=== PATIENT | female | born 1935 | race Caucasian/White ===

== ENCOUNTER 2017-07-17 10:51 | Emergency (ER) | payer OTHER ==
[2017-07-17] MEDS ORDERED: LORazepam 2 MG/ML INJ IVP ONE (11:04)
[2017-07-17] MEDS ORDERED: NS 1,000 ML IV ONE (11:04)
[2017-07-17 11:07] VITALS: TEMP 97.9
--- NOTE | 2017-07-17 11:17 | EDPHY ---
H & P Stated Complaint: constipation Time Seen by Provider: 07/17/17 11:14 HPI/ROS: HPI: This is an 82-year-old female who presents with Chief Complaint: Constipation Location: Lower abdomen Quality: Constipation Duration: 5 days Signs and Symptoms: No nausea, no vomiting, no diarrhea, no hemorrhoids, no decreased appetite, no dysuria, no back pain, no blood in stool, + lower abdominal cramping Timing: Daily, worsening Severity: 05/24 Context: Patient reports that she has not had a bowel movement in 5 days despite taking stool softener, MiraLax, Dulcolax suppository. She continues to eat 3 meals a day and drink fluids throughout the day without difficulty. History appendectomy but no bowel obstruction in past. Patient reports that she is normally regular and involvement in and this is the 1st occurrence of constipation. Modifying Factors: see above relief Comment: ROS: Constitutional: No fever, no chills, no weight loss Eyes: No blurred vision Respiratory: No shortness of breath, no cough Cardiovascular: No chest pain Gastrointestinal: No nausea, no vomiting no diarrhea Genitourinary: No dysuria Extremities: No myalgias Neurologic: No weakness, no numbness Skin: No rashes Hematologic: No bruising, no bleeding MEDICAL/SURGICAL HISTORY: Hypertension, hyperlipidemia, coronary artery disease, vertigo Appendectomy, left total knee replacement Source: Patient - Personal History Current Tetanus/Diphtheria Vaccine: Yes Current Tetanus Diphtheria and Acellular Pertussis (TDAP): Yes - Medical/Surgical History Hx Asthma: Yes Hx Chronic Respiratory Disease: No Hx Diabetes: No Hx Cardiac Disease: Yes Hx Renal Disease: No Hx Cirrhosis: No Hx Alcoholism: No Hx HIV/AIDS: No Hx Splenectomy or Spleen Trauma: No Other PMH: [place] with stents 2009, L knee replacement, vertigo - Social History Smoking Status: Former smoker - Physical Exam Exam: CONSTITUTIONAL: Obese elderly female, awake and alert, mild distress HEENT: Atraumatic and normocephalic, PERRL, EOMI. Tympanic membranes clear. Oropharynx clear, no exudate and moist pink mucosa. Airway patent. No lymphadenopathy. No meningismus. Cardiovascular: Normal S1/S2, regular rate, regular rhythm, without murmur rub or gallop. PULMONARY/CHEST: Symmetrical and nontender. Clear to auscultation bilaterally Good air movement. No accessory muscle usage. ABDOMEN: Soft, nondistended, nontender, no rebound, no guarding, no peritoneal signs, no masses or organomegaly. No CVAT. Bowel sounds are hypoactive in the upper quadrants and hyperactive in the lower quadrants EXTREMITIES: 2/2 pulses, no deformities, no clubbing, no cyanosis or edema. NEUROLOGICAL: no focal neuro deficits. GCS 15. SKIN: Warm and dry, no erythema. no rash. Good capillary refill. Constitutional: Initial Vital Signs Temperature (C) 36.6 C 07/17/17 11:01 Heart Rate 64 07/17/17 11:01 Respiratory Rate 18 07/17/17 11:01 Blood Pressure 199/84 H 07/17/17 11:01 O2 Sat (%) 89 L 07/17/17 11:01 O2 Delivery Mode Nasal Cannula O2 (L/minute) 2 Allergies/Adverse Reactions: latex [Latex] Allergy (Intermediate, Verified 08/13/13 15:39) Other-Enter Comments Sulfa (Sulfonamide Antibiotics) Allergy (Mild, Verified 08/13/13 15:39) Other-Enter Comments WALNUTS Allergy (Severe, Uncoded 08/13/13 15:39) Anaphylaxis CT CONTRAST Allergy (Uncoded 08/13/13 15:39) Home Medications: Medication Instructions Recorded Budesonide [Rhinocort Aqua] 2 sprays EACHNARE DAILY PRN 08/13/13 Clopidogrel Bisulfate [Plavix (*)] 75 mg PO DAILY 08/13/13 ESCITALOPRAM OXALATE [LEXAPRO] 20 mg PO DAILY 08/13/13 Herbals/Supplements -Info Only 1 each PO DAILY 08/13/13 Metoprolol Tartrate [Lopressor] 50 mg PO BIDMEAL 08/13/13 Mometasone/Formoterol [Dulera 100 2 puffs IH BID 08/13/13 Mcg/5 Mcg Inhaler] Pantoprazole Sodium [Protonix 40mg 40 mg PO BID 08/13/13 (*)] Rosuvastatin Calcium [Crestor 20mg 20 mg PO DAILY 08/13/13 (*)] chlordiazePOXIDE [Librium 5 mg (*)] 5 mg PO HS 08/13/13 Fenofibric Acid (Choline) 135 mg PO DAILY 07/18/14 [TRILIPIX] Valsartan [Diovan (*)] 160 mg PO BID 07/18/14 amLODIPine BESYLATE [Norvasc 5 mg 5 mg PO DAILY 07/18/14 (*)] Aspirin [Aspirin 81mg (*)] 81 mg PO DAILY #30 tab 08/09/14 oxyCODONE IR [Oxycodone Ir (*)] 5 - 15 mg PO Q3 PRN #40 tab 08/09/14 Cephalexin [Keflex] 500 mg PO Q6H #28 cap 04/29/16 Meclizine HCl [Meclizine HCl 25 mg 25 mg PO BID #20 tab 04/29/16 (RX,OTC)] Bisacodyl [Dulcolax] 10 mg RC DAILY PRN #6 supp.rect 07/17/17 Polyethylene Glycol 3350 [Miralax 17 gm PO DAILY PRN #12 pkt 07/17/17 17 gm (*)] Medical Decision Making - Diagnostics Imaging Results: Imaging Impressions Abdomen X-Ray 07/17/17 11:04 Impression: Nonspecific bowel gas pattern with mild fluid-filled distention of upper abdominal small bowel loops, with air-fluid levels. ED Course/Re-evaluation: IV fluids, IV medication, enema, AXR ordered Afebrile and not septic in appearance Given 1 L normal saline, IV Ativan for muscle cramping and mild distress, enema Abdominal x-ray my read shows no free air, no obstruction, + moderate stool burden Patient given enema and then had bowel movement large amount of stool and complete relief of cramping Differential Diagnosis: Abdominal pain including but not limited to appendicitis, cholecystitis, gastritis and urinary tract infection. - Data Points Medications Given: Discontinued Medications Sodium Chloride (Ns) 1,000 mls @ 0 mls/hr IV EDNOW ONE; Wide Open PRN Reason: Protocol Stop: 07/17/17 11:05 Last Admin: 07/17/17 11:22 Dose: 1,000 mls Lorazepam (Ativan Injection) 1 mg IVP EDNOW ONE Stop: 07/17/17 11:05 Last Admin: 07/17/17 11:23 Dose: 1 mg Departure - Departure Disposition: Home, Routine, Self-Care Clinical Impression: Constipation by delayed colonic transit Condition: Good Instructions: Constipation (ED) Referrals: Patient,NotPresent [Unknown] - As per Instructions [facility],. [Clinic] - 2-3 days, if not improved Prescriptions: Bisacodyl [Dulcolax] 10 mg RC DAILY PRN #6 supp.rect PRN Reason: Constipation Polyethylene Glycol 3350 [Miralax 17 gm (*)] 17 gm PO DAILY PRN #12 pkt PRN Reason: Constipation
[2017-07-17 11:25] VITALS: RESP 16
[2017-07-17 13:28] VITALS: BP 174/71; PULSE 70; O2SAT 91
== END 2017-07-17 13:40 | disposition home or self-care (01) ==
LOC: EDUNIT# → EDBD
DX: K59.01 Slow transit constipation (principal); J45.909 Unspecified asthma, uncomplicated; I25.2 Old myocardial infarction; E86.9 Volume depletion, unspecified; Z79.82 Long term (current) use of aspirin; Z95.5 Presence of coronary angioplasty implant and graft; Z87.891 Personal history of nicotine dependence; Z91.040 Latex allergy status
CPT/HCPCS: 74022; 96361; 96374; 99284; J2060

== ENCOUNTER → 2017-08-04 | Outpatient (CLI) | payer OTHER | LOC: FIMAGING 12:13 | PROVIDERS: ATTEND Nurse Practitioner Family | DX: S29.9XXA Unspecified injury of thorax, initial encounter (principal); R06.89 Other abnormalities of breathing ==

== ENCOUNTER → 2017-08-10 | Outpatient (CLI) | payer OTHER | LOC: FIMAGING 13:21 | PROVIDERS: ATTEND Physical Medicine & Rehabilitation Pain Medicine | DX: M51.34 Other intervertebral disc degeneration, thoracic region (principal); M51.26 Other intervertebral disc displacement, lumbar region; M46.94 Unspecified inflammatory spondylopathy, thoracic region; M48.04 Spinal stenosis, thoracic region; M48.06 Spinal stenosis, lumbar region; M48.07 Spinal stenosis, lumbosacral region; R91.1 Solitary pulmonary nodule ==

== ENCOUNTER → 2017-08-17 | Outpatient (CLI) | payer OTHER | LOC: FIMAGING 10:06 | PROVIDERS: ATTEND Physical Medicine & Rehabilitation Pain Medicine | DX: R91.1 Solitary pulmonary nodule (principal); I25.10 Atherosclerotic heart disease of native coronary artery without angina pectoris; I35.9 Nonrheumatic aortic valve disorder, unspecified ==

== ENCOUNTER → 2017-09-28 | Outpatient (CLI) | payer OTHER | LOC: FIMAGING 08:13 | PROVIDERS: ATTEND Internal Medicine Pulmonary Disease | DX: R05 Cough (principal); R09.3 Abnormal sputum; K21.9 Gastro-esophageal reflux disease without esophagitis ==

== ENCOUNTER 2017-11-04 16:08 | Inpatient (IN) | payer OTHER ==
[2017-11-04] MEDS ORDERED: LABETALOL HCL 5 MG/ML 20 ML MDV IVP ONE ×2 (16:23→19:08)
--- NOTE | 2017-11-04 16:24 | CPEKG ---
Heart Rate: 68 RR Interval: 882 P-R Interval: 176 QRSD Interval: 84 QT Interval: 424 QTC Interval: 451 P [place]: 50 QRS [place]: 17 T Wave [place]: 40 EKG Severity - ABNORMAL ECG - EKG Impression: SINUS RHYTHM EKG Impression: LEFT VENTRICULAR HYPERTROPHY EKG Impression: BORDERLINE INFERIOR Q WAVES Electronically Signed By: Tommie Nunez 04-Nov-2017 19:55:39
[2017-11-04 16:27] LABS: PLATELET COUNT 343 10^3/uL (150-400)
--- NOTE | 2017-11-04 16:51 | EDPHY ---
H & P Stated Complaint: CP/SOB HPI/ROS: Chief Complaint: Chest pain, shortness of breath HPI: 82-year-old woman with a history of coronary artery disease and hypertension is presenting with worsening dyspnea and chest pain on exertion for the last 3-4 days. She has had decreasing ability to ambulate to the point that with several steps she gets short of breath and started developing substernal chest pain. She has seen her director of testing for this and is scheduled to see Cardiology tomorrow. Today the pain was significantly worse. It goes away at rest. She has not noticed any increasing swelling. Does have a dry nonproductive cough. No fevers or chills. Currently is pain free. At worst pain is about an 8/10. It goes away with rest. ROS: 10 point Review of Systems is negative except as noted in the HPI. PMH: Coronary artery disease status post stenting x3,Hypertension, osteoarthritis Social History: No smoking, no alcohol, no recreational drug use Family History: non-contributory Physical Exam: Gen: Awake, Alert, No Distress, obese HEENT: Nose: no rhinorrhea Eyes: PERRLA, EOMI Mouth: Moist mucosa Neck: Supple, no JVD Chest: nontender, lungs clear to auscultation Heart: S1, S2 normal, no murmur Abd: Soft, non-tender, no guarding Back: no CVA tenderness, no midline tenderness Ext: no edema, non-tender Skin: no rash Neuro: CN II-XII intact, Sensation grossly intact, Strength 5/5 in bilateral upper and lower extremities - Personal History Current Tetanus/Diphtheria Vaccine: Unsure - Medical/Surgical History Hx Asthma: Yes Hx Chronic Respiratory Disease: No Hx Diabetes: No Hx Cardiac Disease: Yes Hx Renal Disease: No Hx Cirrhosis: No Hx Alcoholism: No Hx HIV/AIDS: No Hx Splenectomy or Spleen Trauma: No Other PMH: [place] with stents 2009, L knee replacement, vertigo, depression, CAD, systolic murmur, asthma, anxiety, back pain, GERD, REMA, RLS, osteopenia, kyphosis. - Social History Smoking Status: Former smoker Constitutional: Initial Vital Signs Temperature (C) 36.3 C 11/04/17 16:33 Heart Rate 74 11/04/17 16:33 Respiratory Rate 18 11/04/17 16:33 Blood Pressure 222/119 H 11/04/17 16:33 O2 Sat (%) 91 L 11/04/17 16:33 O2 Delivery Mode Nasal Cannula O2 (L/minute) 2 Allergies/Adverse Reactions: latex [Latex] Allergy (Intermediate, Verified 11/04/17 16:38) Other-Enter Comments Sulfa (Sulfonamide Antibiotics) Allergy (Mild, Verified 11/04/17 16:38) Other-Enter Comments zolpidem [From Ambien] Allergy (Verified 11/04/17 16:38) WALNUTS Allergy (Severe, Uncoded 08/13/13 15:39) Anaphylaxis CT CONTRAST Allergy (Uncoded 08/13/13 15:39) Home Medications: Medication Instructions Recorded Budesonide [Rhinocort Aqua] 2 sprays EACHNARE DAILY PRN 08/13/13 Clopidogrel Bisulfate [Plavix (*)] 75 mg PO DAILY 08/13/13 ESCITALOPRAM OXALATE [LEXAPRO] 20 mg PO DAILY 08/13/13 Herbals/Supplements -Info Only 1 each PO DAILY 08/13/13 Metoprolol Tartrate [Lopressor] 50 mg PO BIDMEAL 08/13/13 Mometasone/Formoterol [Dulera 100 2 puffs IH BID 08/13/13 Mcg/5 Mcg Inhaler] Pantoprazole Sodium [Protonix 40mg 40 mg PO BID 08/13/13 (*)] Rosuvastatin Calcium [Crestor 20mg 20 mg PO DAILY 08/13/13 (*)] chlordiazePOXIDE [Librium 5 mg (*)] 5 mg PO HS 08/13/13 Fenofibric Acid (Choline) 135 mg PO DAILY 07/18/14 [TRILIPIX] Valsartan [Diovan (*)] 160 mg PO BID 07/18/14 amLODIPine BESYLATE [Norvasc 5 mg 5 mg PO DAILY 07/18/14 (*)] Aspirin [Aspirin 81mg (*)] 81 mg PO DAILY #30 tab 08/09/14 oxyCODONE IR [Oxycodone Ir (*)] 5 - 15 mg PO Q3 PRN #40 tab 08/09/14 Cephalexin [Keflex] 500 mg PO Q6H #28 cap 04/29/16 Meclizine HCl [Meclizine HCl 25 mg 25 mg PO BID #20 tab 04/29/16 (RX,OTC)] Bisacodyl [Dulcolax] 10 mg RC DAILY PRN #6 supp.rect 07/17/17 Polyethylene Glycol 3350 [Miralax 17 gm PO DAILY PRN #12 pkt 07/17/17 17 gm (*)] Medical Decision Making - Diagnostics EKG Interpretation: ECG time 4:21 p.m. sinus rhythm with a rate of 68, normal axis, normal intervals , borderline inferior Q-waves in lead 3. Imaging Results: Imaging Impressions Chest X-Ray 11/04/17 16:22 Impression: 1. Mild prominent interstitial markings at the lung bases could represent some dependent interstitial edema. Imaging: I viewed and interpreted images myself ED Course/Re-evaluation: Patient presenting with worsening dyspnea on exertion and hypertension urgency. Will give her labetalol 5 mg at this time. She is currently pain-free. She has had significant anginal symptoms which are progressing. No acute changes on her ECG but definitely old inferior Q-waves. Will obtain blood tests and x- ray. I anticipate admission for further evaluation. Case discussed with Valerie Spicer, hospitalist. She will admit to the PCU under Dr. Main. - Data Points Laboratory Results: Laboratory Results 11/04/17 16:00 11/04/17 16:00 11/04/17 11/04/17 16:00 16:00 WBC 8.06 10^3/uL 10^3/uL (3.80-9.50) RBC 4.40 10^6/uL 10^6/uL (4.18-5.33) Hgb 12.7 g/dL g/dL (12.6-16.3) Hct 37.5 % L % (38.0-47.0) MCV 85.2 fL fL (81.5-99.8) MCH 28.9 pg pg (27.9-34.1) MCHC 33.9 g/dL g/dL (32.4-36.7) RDW 14.7 % % (11.5-15.2) Plt Count 343 10^3/uL 10^3/uL (150-400) MPV 9.7 fL fL (8.7-11.7) Neut % (Auto) 59.4 % % (39.3-74.2) Lymph % (Auto) 26.1 % % (15.0-45.0) [place] % (Auto) 7.7 % % (4.5-13.0) Eos % (Auto) 5.6 % % (0.6-7.6) Baso % (Auto) 0.7 % % (0.3-1.7) Nucleat RBC Rel Count 0.0 % % (0.0-0.2) Absolute Neuts (auto) 4.79 10^3/uL 10^3/uL (1.70-6.50) Absolute Lymphs (auto) 2.10 10^3/uL 10^3/uL (1.00-3.00) Absolute Monos (auto) 0.62 10^3/uL 10^3/uL (0.30-0.80) Absolute Eos (auto) 0.45 10^3/uL H 10^3/uL (0.03-0.40) Absolute Basos (auto) 0.06 10^3/uL 10^3/uL (0.02-0.10) Absolute Nucleated RBC 0.00 10^3/uL 10^3/uL (0-0.01) Immature Gran % 0.5 % % (0.0-1.1) Immature Gran # 0.04 10^3/uL 10^3/uL (0.00-0.10) Sodium 143 mEq/L mEq/L (134-144) Potassium 4.5 mEq/L mEq/L (3.5-5.2) Chloride 105 mEq/L mEq/L (97-110) Carbon Dioxide 21 mEq/l L mEq/l (22-31) Anion Gap 17 mEq/L H mEq/L (8-16) BUN 22 mg/dL mg/dL (7-23) Creatinine 1.0 mg/dL mg/dL (0.6-1.0) Estimated GFR 53 Glucose 194 mg/dL H mg/dL (70-100) Calcium 10.8 mg/dL H mg/dL (8.5-10.4) Phosphorus 3.2 mg/dL mg/dL (2.5-4.5) Troponin I < 0.012 ng/mL ng/mL (0.000-0.034) Medications Given: Discontinued Medications Labetalol HCl (Trandate Injection) 5 mg IVP EDNOW ONE Stop: 11/04/17 16:24 Last Admin: 11/04/17 16:27 Dose: 5 mg Departure - Departure [facility] Clinical Impression: Chest pain, Hypertension, Unstable angina Condition: Fair Referrals: Patient,NotPresent [Unknown] - As per Instructions
[2017-11-04] MEDS ORDERED: ONDANSETRON 4 MG/2 ML VIAL IVP PRN (19:03)
[2017-11-04] MEDS ORDERED: ONDANSETRON DISINTEGRATING 4 MG TAB PO PRN (19:03)
[2017-11-04] MEDS ORDERED: CETIRIZINE 10 MG TAB PO PRN (19:05)
[2017-11-04] MEDS ORDERED: LIDOCAINE HCL 4% TP PRN (19:05)
[2017-11-04] MEDS ORDERED: NITROGLYCERIN 0.4 MG BTL SL PRN (19:05)
[2017-11-04] MEDS ORDERED: POLYETHYLENE GLYCOL 3350 17 GM PKT PO PRN (19:05)
[2017-11-04] MEDS ORDERED: SENNOSIDES/DOCUSATE SODIUM TAB PO PRN (19:05)
[2017-11-04] MEDS ORDERED: ALBUTEROL 60 PUFFS/8 GM MDI IH PRN (19:05)
[2017-11-04] MEDS ORDERED: BISACODYL 10 MG SUPP PR PRN (19:05)
[2017-11-04] MEDS ORDERED: FUROSEMIDE 40 MG/4 ML VIAL IVP ONE (19:07)
--- NOTE | 2017-11-04 20:06 | GHP ---
[f rep st] HISTORY AND PHYSICAL DATE OF ADMISSION: 11/04/2017 HISTORY OF PRESENT ILLNESS: The patient is a pleasant 82-year-old female with a history of coronary artery disease and hypertension, with previous admissions for hypertensive urgency, who presents with a couple days of increasing dyspnea on exertion and exertional chest pain. She has a history of cor onary artery disease with 3 stents placed in the remote past. She has had regular care with Dr. Mary soto since then, including a stress tests which apparently have been negative. She had moved to [facility] in the spring. She had her last cardiology followup then and was told everything was okay. Since moving to [facility] from [facility], she has gained about 40 pounds because she was not previously eating 3 meals a day. She takes her medications as prescribed. Her antihypertensive regimen includes amlodipine, losartan, and a beta jordi. She has noted increasing dyspnea on exert ion over the last 3 days. She had an appointment with Dr. Springer, her electrical estimator, today which soun ds like things went okay, although she was complaining of a dry cough. She has not had fever, chills , nausea, vomiting, diarrhea, or sputum. She does not really have much in the way of lower extremity edema. REVIEW OF SYSTEMS: A complete 10-point review of systems was conducted and negative except as noted in the HPI. PAST MEDICAL HISTORY: 1. Coronary artery disease. 2. Anomia. She has seen a neurologist in the past and did not get much of an answer. 3. Hypertension. 4. Asthma. 5. Cough to JIMENEZ inhibitor. 6. Hyperlipidemia. 7. Constipation. 8. GERD. ALLERGIES: Sulfa, latex, JIMENEZ inhibitors, walnuts. MEDICATIONS: Tylenol, albuterol, amlodipine, atorvastatin, bisacodyl, budesonide, nasal spray, cetir izine, chlordiazepoxide at night, clopidogrel, escitalopram, fenofibrate, lidocaine, losartan, metopr olol, nitroglycerin p.r.n. which she has not taken, pantoprazole, MiraLAX, senna, tramadol. SOCIAL HISTORY: No tobacco. No alcohol. Originally from [place]. Lives at [facility]. FAMILY HISTORY: Parents . PHYSICAL EXAMINATION: PRESENTING VITALS: Today, temp 36.3, blood pressure 222/119, pulse 74, breath ing 18 times a minute, 91% on room air. Her blood pressure remains elevated at 230/80. GENERAL: No acute distress. HEENT: Sclerae anicteric. Oropharynx clear. Mucous membranes are moist. NECK: Supple, without lymphadenopathy. I believe she has elevated JVD, but her habitus makes it a little b it difficult to figure that out. LUNGS: Clear to auscultation anterolaterally. HEART: S1, S2. Th ere is a 3/6 systolic ejection murmur, heard best at the left upper sternal border. The character of it is crescendo decrescendo. ABDOMEN: Soft, nontender, nondistended. LOWER EXTREMITIES: Without edema. Calves nontender. SKIN: Without rash. NEUROLOGIC: Exam nonfocal. LABORATORY DATA: White count 8, hematocrit 37.5, platelets 343,000. Sodium 143, potassium 4.5, chlo ride 105, bicarb 21, BUN 22, creatinine 1.0, glucose 194, calcium 10.8, which is slightly high. Trop onin is less than 0.012. Chest x-ray interpreted by me shows mild volume overload, without acute inf iltrate. EKG interpreted by me shows sinus at 68, with a normal axis and intervals. There are no ST or T-wave changes. There is an inferior Q. Compared with prior, this EKG is similar. The Q-wave i s larger, but it was present previously. I have discussed the case with Dr. Raghu Nguyen and Dr. Will Rangel of cardiology. ASSESSMENT AND PLAN: An 82-year-old female with hypertensive urgency. 1. Hypertensive urgency. It is unclear why her blood pressure is so much more elevated. She is on appropriate blood pressure medications. I think the weight gain in the last 6-8 months may have cont ributed to rising blood pressures. I am going to give her 10 of labetalol. She received 5 with mini mal effect. If that does not work, I will increase it. I am also going to give her some IV Lasix. 2. Acute diastolic heart failure. The patient has diastolic heart failure on the basis of her eleva diamond blood pressure and mild pulmonary edema. I will give her Lasix 40 tonight and 40 b.i.d. starting tomorrow. It has been a long time since she had an echocardiogram here in this hospital, going back for more than 4 years. She had one in February. [facility] is going to see her in the morning. ey can evaluate that. For now, we will diurese. 3. Coronary artery disease. I think the patient would probably benefit from a stress test, but once her blood pressure is under better control, so I will not order it now. 4. Asthma. Continue inhaler. She is not wheezing on this exam. 5. Prophylaxis. Pharmacologic prophylaxis is indicated. 6. Disposition. Inpatient status. I anticipate we will need more than 2 midnights. /[id number]/MODL
[2017-11-04] MEDS ORDERED: FLUTICASONE NASAL 120 SPRAYS/16 GM MDI EACHNARE PRN (21:00)
[2017-11-04] MEDS: LOSARTAN POTASSIUM 50 MG TAB PO SCH (21:33)
[2017-11-04] MEDS: PANTOPRAZOLE SODIUM 40 MG TAB PO SCH (21:33)
[2017-11-04] MEDS: amLODIPine BESYLATE 5 MG TAB PO SCH (21:33)
[2017-11-04] MEDS: ATORVASTATIN CALCIUM 40 MG TAB PO SCH (21:33)
[2017-11-04] MEDS: ACETAMINOPHEN 325 MG TAB PO PRN (23:34)
[2017-11-05] MEDS ORDERED: Fenofibrate,Micronized [Fenofibrate] 200 MG PO SCH (09:00)
[2017-11-05] MEDS: ESCITALOPRAM OXALATE 10 MG TAB PO SCH (09:21)
[2017-11-05] MEDS: PANTOPRAZOLE SODIUM 40 MG TAB PO SCH ×2 (09:21→18:22)
[2017-11-05] MEDS: CLOPIDOGREL BISULFATE 75 MG TAB PO SCH (09:21)
[2017-11-05] MEDS: METOPROLOL TARTRATE 50 MG TAB PO SCH ×2 (09:21→17:18)
[2017-11-05] MEDS: ENOXAPARIN 40 MG/0.4 ML SYR SC SCH (10:30)
[2017-11-05] MEDS: FUROSEMIDE 40 MG/4 ML VIAL IVP SCH ×2 (10:30→17:17)
--- NOTE | 2017-11-05 12:05 | PDMN ---
Medical Necessity Medical necessity: Pt meets IP criteria per MD; est los >2 mm for eval/tx of hypertensive urgency & acute diastolic heart failure; admit for further workup/ monitoring, IV diuresis/med management; hx CAD & HTN; per H&P & order 11/04/17
--- NOTE | 2017-11-05 14:34 | HOSPPROG ---
Hospitalist Progress Note Assessment/Plan: NEW PT ENCOUNTER 82 yo female admitted with HTN urgency, volume overload, and 40 Lb weigh gain #Volume overload and Diastolic CHF-Exacerbation: cont IV Lasix #COOL #HTN Urgency, improving #Hx of CAD #Weight gain Plan: -Continue IV Lasix -BP is better, continue with current mgmt -Gudelia scan tomorrow -Appreciate Cards help -Cont current BP mgmt -Lovenox for DVT proph Subjective: BP is better. Feels better. Still with some SOB. diuresis has been + . Objective: Vital Signs Temp Pulse Resp BP Pulse Ox 36.6 C 60 18 140/60 H 93 11/05/17 12:00 11/05/17 12:00 11/05/17 12:00 11/05/17 12:00 11/05/17 12:00 Laboratory Results 11/05/17 02:10 11/04/17 11/05/17 11/06/17 05:59 05:59 05:59 Intake Total 1100 Output Total 1350 Balance -250 - Physical Exam Constitutional: no apparent distress Eyes: PERRL, EOMI Ears, Nose, Mouth, Throat: moist mucous membranes, hearing normal Cardiovascular: regular rate and rhythym, edema Respiratory: rhonchi Gastrointestinal: normoactive bowel sounds, soft, non-tender abdomen Skin: warm Neurologic: AAOx3 Psychiatric: interacting appropriately, not anxious, not encephalopathic Lymph, Heme, Immunologic: No petechiae ICD10 Worksheet Patient Problems: Problems Problem Status Onset Chest pain Acute Hypertension Acute Unstable angina Acute Primary localized osteoarthrosis, lower leg Chronic
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
--- NOTE | 2017-11-05 14:52 | ASMTCMCOM ---
CM Note CM Note Notes: Patient admitted for a hypertensive urgency. She has also had a 40lb weight gain in the last few months. She is being followed by hospitalists and cardiology. She will have a LexiScan tomorrow. She lives independently at [facility]. She has family locally. PT/OT have been ordered and are pending. CM will follow for any discharge needs. Date Signed: 11/05/2017 02:52 PM Electronically Signed By:Carlita Maddox RN
[2017-11-05] MEDS ORDERED: PROTOCOL POTASSIUM 1 DOSE MISC PRN (15:35)
[2017-11-05] MEDS ORDERED: POTASSIUM CL 10 MEQ TAB PO ONE ×2 (16:40→20:00)
[2017-11-05] MEDS: ATORVASTATIN CALCIUM 40 MG TAB PO SCH (20:44)
[2017-11-05] MEDS: amLODIPine BESYLATE 5 MG TAB PO SCH (20:45)
[2017-11-05] MEDS: LOSARTAN POTASSIUM 50 MG TAB PO SCH (20:45)
[2017-11-05] MEDS: traMADol 50 MG TAB PO PRN (20:48)
[2017-11-05] MEDS: ACETAMINOPHEN 325 MG TAB PO PRN (20:50)
[2017-11-06 05:27] LABS: PLATELET COUNT 316 10^3/uL (150-400)
[2017-11-06] MEDS ORDERED: REGADENOSON 0.4 MG/5 ML SYR IVP ONE (09:10)
[2017-11-06] MEDS: CLOPIDOGREL BISULFATE 75 MG TAB PO SCH (10:33)
[2017-11-06] MEDS: PANTOPRAZOLE SODIUM 40 MG TAB PO SCH ×2 (10:33→17:36)
[2017-11-06] MEDS: ESCITALOPRAM OXALATE 10 MG TAB PO SCH (10:33)
[2017-11-06] MEDS: ENOXAPARIN 40 MG/0.4 ML SYR SC SCH (10:34)
[2017-11-06] MEDS: FENOFIBRATE 145 MG TAB PO SCH (10:57)
[2017-11-06] MEDS: FUROSEMIDE 40 MG/4 ML VIAL IVP SCH (11:55)
[2017-11-06] MEDS: METOPROLOL TARTRATE 50 MG TAB PO SCH ×2 (11:55→17:36)
--- NOTE | 2017-11-06 14:13 | GPN ---
[f rep st] PROCEDURE NOTE DATE OF PROCEDURE: 11/05/2017 PROCEDURE PERFORMED: Pharmacologic nuclear stress test. INDICATION FOR PROCEDURE: Complaints of chest pain with known history of coronary artery disease. DESCRIPTION OF PROCEDURE: After informed consent was obtained from patient, the patient underwent Le xiscan pharmacologic nuclear stress test at bedside. Baseline heart rhythm demonstrated normal sinus rhythm at 61 beats per minute with blood pressure of 143/64. Oxygen saturation is 96% on 5 L nasal cannula. The patient received Lexiscan injection over 10 seconds of 0.4 mg. She then received injec tion of 23.9 mCi of TC 99 m sestamibi at peak hyperuremia. The patient complained of 4/10 substernal chest pressure with Lexiscan infusion that persisted for approximately 2 minutes and gradually resol lissette. At the time of this dictation, her chest discomfort had completely resolved. She had no ECG ch anges during the monitoring. Nuclear images are pending. SUMMARY: 1. No evidence of ischemic changes with pharmacologic stress. 2. 4/10 substernal chest pressure with pharmacologic stress test. 3. Nuclear images pending. /[id number]/MODL
--- NOTE | 2017-11-06 14:43 | ASMTCMCOM ---
CM Note CM Note Notes: PT recommendation is for out pt PT. Met w/pt today to discuss dc poc. She lives at [facility]. She has help w/meds and some ADL's. She also currently receives PT there twice/week. Anticipate that she will dc back to [facility] w/no needs. CM will follow. Date Signed: 11/06/2017 02:43 PM Electronically Signed By:Tri Fisher RN
--- NOTE | 2017-11-06 16:40 | HOSPPROG ---
Hospitalist Progress Note Assessment/Plan: 82 yo female admitted with HTN urgency, volume overload, and 40 Lb weigh gain Has diuresed well BUN and CR mildly elevated Resp status is better abnormal nuclear test today #Volume overload and Diastolic CHF-Exacerbation: #ADALI #COOL #HTN Urgency, improving #Hx of CAD #Weight gain Plan: -Hold Lasix -resting component of nuclear scan tomorrow -Appreciate Cards help -Cont current BP mgmt -Lovenox for DVT proph d/w nurse and pt in depth at bedside Subjective: no cp. sob is significantly better. no leg edema. feels better overall Objective: Vital Signs Temp Pulse Resp BP Pulse Ox 36.6 C 63 20 172/107 H 94 11/06/17 12:00 11/06/17 12:00 11/06/17 12:00 11/06/17 12:00 11/06/17 12:41 Laboratory Results 11/06/17 04:50 11/06/17 04:50 11/05/17 11/06/17 11/07/17 05:59 05:59 05:59 Intake Total 1100 2340 300 Output Total 1350 1950 300 Balance -250 390 0 - Physical Exam Constitutional: no apparent distress Eyes: PERRL, EOMI Ears, Nose, Mouth, Throat: moist mucous membranes, hearing normal Cardiovascular: regular rate and rhythym, edema (trace) Respiratory: no respiratory distress, clear to auscultation Gastrointestinal: normoactive bowel sounds, soft, non-tender abdomen Skin: warm Neurologic: AAOx3 Psychiatric: interacting appropriately, not anxious, not encephalopathic Lymph, Heme, Immunologic: petechiae ICD10 Worksheet Patient Problems: Problems Problem Status Onset Chest pain Acute Hypertension Acute Unstable angina Acute Primary localized osteoarthrosis, lower leg Chronic
[2017-11-06] MEDS: CARBOXYMETHYLCELLULOSE 1% 0.4 ML DROPERETTE EACHEYE PRN (18:15)
[2017-11-06] MEDS: traMADol 50 MG TAB PO PRN (20:12)
[2017-11-06] MEDS: ATORVASTATIN CALCIUM 40 MG TAB PO SCH (20:12)
[2017-11-06] MEDS: ACETAMINOPHEN 325 MG TAB PO PRN (20:12)
[2017-11-06] MEDS: amLODIPine BESYLATE 5 MG TAB PO SCH (20:12)
[2017-11-07 04:04] LABS: PLATELET COUNT 304 10^3/uL (150-400)
[2017-11-07] MEDS: FENOFIBRATE 145 MG TAB PO SCH (09:03)
[2017-11-07] MEDS: ENOXAPARIN 40 MG/0.4 ML SYR SC SCH (09:03)
[2017-11-07] MEDS: ESCITALOPRAM OXALATE 10 MG TAB PO SCH (09:03)
[2017-11-07] MEDS: PANTOPRAZOLE SODIUM 40 MG TAB PO SCH ×2 (09:03→18:06)
[2017-11-07] MEDS: CLOPIDOGREL BISULFATE 75 MG TAB PO SCH (09:03)
--- NOTE | 2017-11-07 11:55 | HOSPPROG ---
Hospitalist Progress Note Assessment/Plan: 82 yo female admitted with HTN urgency, volume overload, and 40 Lb weigh gain Has diuresed well BUN and CR cont to be mildly elevated. Upon further review she has had mild elevated Cr intermittently for several years Resp status is better BNP not elevated abnormal nuclear test yesterday, awaiting resting phase today #Volume overload and Diastolic CHF-Exacerbation, appears Euvolemic currently #ADALI, likely due to diuresis #COOL, improving #HTN Urgency, improving #Hx of CAD #Weight gain #Weakness and deconditioning: working with PT. Plan: -Hold Lasix, repeat BMP in a.m -Cont work with PT -Await resp phase of nuclear scan -Appreciate Cards help -Cont current BP mgmt -Lovenox for DVT proph Dispo: monitor overnight for repeat labs and continue work with PT. She may require more lasix tomorrow. Anticipate d/c tomorrow if myocardial test is ok Subjective: Feels better. No CP or SOB. NO N/V. Objective: Vital Signs Temp Pulse Resp BP Pulse Ox 36.4 C 58 L 18 141/79 H 96 11/07/17 08:00 11/07/17 08:00 11/07/17 08:00 11/07/17 08:00 11/07/17 08:00 Laboratory Results 11/07/17 03:46 11/07/17 03:46 11/06/17 11/07/17 11/08/17 05:59 05:59 05:59 Intake Total 2340 1700 Output Total 1950 1100 Balance 390 600 - Physical Exam Constitutional: no apparent distress Eyes: PERRL Ears, Nose, Mouth, Throat: moist mucous membranes, hearing normal, ears appear normal Cardiovascular: regular rate and rhythym, no murmur, rub, or gallop, No edema Respiratory: no respiratory distress, clear to auscultation Gastrointestinal: normoactive bowel sounds, soft, non-tender abdomen Skin: warm Musculoskeletal: generalized weakness Neurologic: AAOx3 Psychiatric: interacting appropriately, not anxious, not encephalopathic, thought process linear Lymph, Heme, Immunologic: No petechiae ICD10 Worksheet Patient Problems: Problems Problem Status Onset Chest pain Acute Hypertension Acute Unstable angina Acute Primary localized osteoarthrosis, lower leg Chronic
[2017-11-07] MEDS: METOPROLOL TARTRATE 50 MG TAB PO SCH ×2 (13:44→18:06)
[2017-11-07] MEDS: CARBOXYMETHYLCELLULOSE 1% 0.4 ML DROPERETTE EACHEYE PRN (13:51)
--- NOTE | 2017-11-07 15:15 | SOAPPROG ---
JULIO Progress Note Assessment/Plan: Assessment: She has known coronary artery disease with previous stenting of the right posterolateral branch and LAD/diagonal system back in 2009. Additionally she has a history of hypertension and hyperlipidemia. She presented with symptoms of dyspnea and was noted to be significantly hypertensive at that time. Her recent stress test indicates ischemia in the distribution of her apex and basal lateral wall. Her ejection fraction appears to be preserved. By exam she has a murmur of aortic sclerosis. In talking to her, she does not want to have a heart catheterization at the present time. I think this is reasonable given her age and the distribution of the reversible defects. I think that she can be managed conservatively with medical therapy and if she continues to have limiting symptoms angiography can be pursued at that time. Plan: 1. I have started her on Ranexa 500 mg twice daily. 2. She would like to stay overnight. I think that she can be discharged home tomorrow. 3. I would like her to have follow-up with Dr. Nino Zhu within the next 2-3 weeks. 4. We will continue aggressive secondary prevention measures. 11/07/17 15:12 Subjective: The patient was seen and examined. Her chart was reviewed. I reviewed her previous cardiac catheterization films and personally reviewed her nuclear stress test results. She states that she is feeling better presently. She initially presented with symptoms of exertional dyspnea and minor chest discomfort. Her blood pressures have improved substantially during this hospitalization she states that she feels back to normal. She is able to ambulate on telemetry with no limiting symptoms. I discussed her MPI results. We talked about various options including cardiac catheterization versus medical therapy. She states that she really does not want cardiac catheterization at the present time. Objective: Vital Signs Temp Pulse Resp BP Pulse Ox 36.6 C 57 L 18 123/63 H 95 11/07/17 12:00 11/07/17 12:00 11/07/17 12:00 11/07/17 12:00 11/07/17 12:00 Laboratory Results 11/07/17 03:46 11/07/17 03:46 11/06/17 11/07/17 11/08/17 05:59 05:59 05:59 Intake Total 2340 1700 Output Total 1950 1100 Balance 390 600 Physical Exam - Physical Exam General Appearance: WD/WN, no apparent distress Neck: non-tender, full range of motion Respiratory: lungs clear, No crackles, No rales, No rhonchi Cardiac/Chest: regular rate, rhythm, systolic murmur (2/6 systolic ejection murmur left sternal), No edema, No gallop, No JVD Peripheral Pulses: 2+: carotid (R), carotid (L) Abdomen: non-tender, soft Pelvic Exam: deferred Rectal: deferred Neuro/Psych: alert, normal mood/affect, oriented x 3 ICD10 Worksheet Patient Problems: Problems Problem Status Onset Chest pain Acute Hypertension Acute Unstable angina Acute Primary localized osteoarthrosis, lower leg Chronic
[2017-11-07] MEDS: RANOLAZINE 500 MG TAB.ER PO SCH ×2 (17:04→20:06)
[2017-11-07] MEDS: amLODIPine BESYLATE 5 MG TAB PO SCH (20:06)
[2017-11-07] MEDS: ATORVASTATIN CALCIUM 40 MG TAB PO SCH (20:06)
[2017-11-07] MEDS: traMADol 50 MG TAB PO PRN (21:28)
[2017-11-08] MEDS: ENOXAPARIN 40 MG/0.4 ML SYR SC SCH (08:57)
[2017-11-08] MEDS: CLOPIDOGREL BISULFATE 75 MG TAB PO SCH (08:58)
[2017-11-08] MEDS: RANOLAZINE 500 MG TAB.ER PO SCH ×2 (08:58→20:53)
[2017-11-08] MEDS: PANTOPRAZOLE SODIUM 40 MG TAB PO SCH ×2 (08:58→18:11)
[2017-11-08] MEDS: METOPROLOL TARTRATE 50 MG TAB PO SCH ×2 (08:58→18:12)
[2017-11-08] MEDS: ESCITALOPRAM OXALATE 10 MG TAB PO SCH (08:58)
[2017-11-08] MEDS: FENOFIBRATE 145 MG TAB PO SCH (08:59)
--- NOTE | 2017-11-08 15:58 | HOSPPROG ---
Hospitalist Progress Note Assessment/Plan: DIAGNOSES: -acute diastolic congestive heart failure, normal ejection fraction on myocardial perfusion imaging -exertional chest discomfort suggesting unstable progressive angina with a reversible apical defect on myocardial perfusion imaging -patient has requested no angiography or interventions be done, wants medical management -hypertensive urgency; poorly controlled hypertension at home likely contributing to her symptoms her -most blood pressure is good here so far, intermittent systolic elevations -COPD, some wheeze now -finds that albuterol helps her symptoms,? Wonder if she would benefit from long-acting inhaled medications though Dr. Springer has never ordered these for her -severe deconditioning and poor mobility, combination of the above and generalized weakness She is improving, however is not really doing well enough to trying discharge her at this point. It may be that better pulmonary treatments would help, but we may need to consider further diuresis as well. PLANS: Continue Ranexa Continue aggressive secondary prevention measures for vascular disease Patient's wish is to avoid angiography and coronary interventions, continue on her wishes for that Continue diuretics as indicated Will review with pulmonology, consider long-acting bronchodilators Lovenox for DVT prophylaxis Physical occupational therapy SUBJECTIVE: Still fairly short of breath and is limiting her physical activity significantly No angina at this point OBJECTIVE Vitals reviewed: Stable without fever [employer], my review: Sinus rhythm Exam: alert oriented skin warm dry color ok resps not labored at rest, but gets labored easily with minimal exertion lungs diminished BSs with some mild end expiratory wheeze heart regular abd soft nondistended nontender, bowel sounds present limbs warm, little edema iv site ok Laboratory data reviewed: Renal function and electrolytes stable Objective: Vital Signs Temp Pulse Resp BP Pulse Ox 36.8 C 59 L 14 138/52 H 96 11/08/17 11:46 11/08/17 11:46 11/08/17 11:46 11/08/17 11:46 11/08/17 11:46 Laboratory Results 11/07/17 03:46 11/08/17 03:48 11/07/17 11/08/17 11/09/17 06:59 06:59 06:59 Intake Total 1700 1740 960 Output Total 1100 1725 500 Balance 600 15 460 ICD10 Worksheet Patient Problems: Problems Problem Status Onset Chest pain Acute Hypertension Acute Unstable angina Acute Primary localized osteoarthrosis, lower leg Chronic
[2017-11-08] MEDS: CARBOXYMETHYLCELLULOSE 1% 0.4 ML DROPERETTE EACHEYE PRN (16:19)
[2017-11-08] MEDS: amLODIPine BESYLATE 5 MG TAB PO SCH (20:53)
[2017-11-08] MEDS: ATORVASTATIN CALCIUM 40 MG TAB PO SCH (20:53)
[2017-11-08] MEDS: traMADol 50 MG TAB PO PRN (20:56)
[2017-11-09] MEDS: CLOPIDOGREL BISULFATE 75 MG TAB PO SCH (08:32)
[2017-11-09] MEDS: METOPROLOL TARTRATE 50 MG TAB PO SCH ×2 (08:32→17:53)
[2017-11-09] MEDS: ESCITALOPRAM OXALATE 10 MG TAB PO SCH (08:33)
[2017-11-09] MEDS: PANTOPRAZOLE SODIUM 40 MG TAB PO SCH ×2 (08:33→17:53)
[2017-11-09] MEDS: RANOLAZINE 500 MG TAB.ER PO SCH ×2 (08:33→20:21)
[2017-11-09] MEDS: FENOFIBRATE 145 MG TAB PO SCH (08:33)
[2017-11-09] MEDS: ENOXAPARIN 40 MG/0.4 ML SYR SC SCH (08:55)
--- NOTE | 2017-11-09 14:53 | HOSPPROG ---
Hospitalist Progress Note Assessment/Plan: DIAGNOSES: -acute diastolic congestive heart failure, normal ejection fraction on myocardial perfusion imaging -exertional chest discomfort suggesting unstable progressive angina with a reversible apical defect on myocardial perfusion imaging -patient has requested no angiography or interventions be done, wants medical management -hypertensive urgency; poorly controlled hypertension at home likely contributing to her symptoms her -most blood pressure is good here so far, intermittent systolic elevations -COPD, some wheeze now -finds that albuterol helps her symptoms,? Wonder if she would benefit from long-acting inhaled medications though Dr. Springer has never ordered these for her -severe deconditioning and poor mobility, combination of the above and generalized weakness Still with exertional dyspnea today, not improve, no exertional angina. She is concerned that the lack of angina may be due to slower and shorter distance walking as opposed to our treatments. Her dyspnea still fairly limiting with walking. Notably she has not used any albuterol here in the hospital yet even though she is aware that is available as a p.r.n. medicine. Her chest x-ray still showing some mild pulmonary edema indicates we probably should get back on diuretic and with diastolic dysfunction probably keep her on that. In addition I did review her records with Dr. Springer in the clinic. There is nothing specific that would be a contraindication to using a long-acting steroid beta agonist inhaled medicine, so I will order that and see if that helps her since she still wheezy. I did again review with her that she can use albuterol any time including before exertion. PLANS: Continue Ranexa Resume diuretic implant continue that at this point. Add Symbicort at this time Continue to follow her symptoms and potential discharge if her exertional abilities improve Continue aggressive secondary prevention measures for vascular disease Patient's wish is to avoid angiography and coronary interventions, continue on her wishes for that Lovenox for DVT prophylaxis Physical occupational therapy I reviewed her case today with Dr. Owen Kumar. I reviewed her case today in detail with her son including her progress, diagnoses, treatment plan and follow -up plan. SUBJECTIVE: Still fairly short of breath and is limiting her physical activity significantly , really unchanged from yesterday No angina at this point No cough, fever, palpitations or leg symptoms per OBJECTIVE Vitals reviewed: Stable without fever [place], my review: Sinus rhythm Exam: alert oriented skin warm dry color ok resps not labored at rest, lungs diminished BSs with some mild end expiratory wheeze, no audible rales heart regular abd soft nondistended nontender, bowel sounds present limbs warm, trace edema if any iv site ok Laboratory data reviewed: Stable potassium today Objective: Vital Signs Temp Pulse Resp BP Pulse Ox 36.6 C 56 L 18 157/78 H 96 11/09/17 12:00 11/09/17 12:00 11/09/17 12:00 11/09/17 12:00 11/09/17 12:00 Laboratory Results 11/07/17 03:46 11/09/17 03:54 11/08/17 11/09/17 11/10/17 06:59 06:59 06:59 Intake Total 1740 2660 Output Total 1725 970 Balance 15 1690 ICD10 Worksheet Patient Problems: Problems Problem Status Onset Chest pain Acute Hypertension Acute Unstable angina Acute chronic disease [facility]/transitional care Acute Primary localized osteoarthrosis, lower leg Chronic
[2017-11-09] MEDS ORDERED: FUROSEMIDE 40 MG/4 ML VIAL IVP ONE (16:03)
--- NOTE | 2017-11-09 16:48 | ASMTCMCOM ---
CM Note CM Note Notes: Per therapies patient should have no needs to return to assisted living. CM available should needs arise. Date Signed: 11/09/2017 04:48 PM Electronically Signed By:Chelsea Weston RN
[2017-11-09] MEDS: amLODIPine BESYLATE 5 MG TAB PO SCH (20:21)
[2017-11-09] MEDS: ATORVASTATIN CALCIUM 40 MG TAB PO SCH (20:21)
[2017-11-09] MEDS: BUDESONIDE/FORMOTEROL 80/4.5 60 PUFFS/MDI IH SCH (21:52)
[2017-11-10] MEDS: CLOPIDOGREL BISULFATE 75 MG TAB PO SCH (08:04)
[2017-11-10] MEDS: ESCITALOPRAM OXALATE 10 MG TAB PO SCH (08:04)
[2017-11-10] MEDS: RANOLAZINE 500 MG TAB.ER PO SCH (08:04)
[2017-11-10] MEDS: ENOXAPARIN 40 MG/0.4 ML SYR SC SCH (08:04)
[2017-11-10] MEDS: METOPROLOL TARTRATE 50 MG TAB PO SCH (08:05)
[2017-11-10] MEDS: FENOFIBRATE 145 MG TAB PO SCH (08:05)
[2017-11-10] MEDS: PANTOPRAZOLE SODIUM 40 MG TAB PO SCH (08:05)
[2017-11-10] MEDS: BUDESONIDE/FORMOTEROL 80/4.5 60 PUFFS/MDI IH SCH (08:47)
[2017-11-10 11:12] VITALS: PULSE 64; TEMP 97.7
[2017-11-10 12:39] VITALS: BP 168/66
--- NOTE | 2017-11-10 13:55 | PDHOMEO2F ---
Home Oxygen Face to Face Home Orders: I certify that a physician or a nurse practitioner or physician's equal opportunity assistant has had a jytw-vh-vojz encounter with this patient on the date of this order due to the diagnosis listed, which relates to the primary reason the patient requires home oxygen. Alternative treatments have been tried, or considered, and deemed ineffective. It is anticipated that supplemental oxygen will result in improvement with treatment. Home oxygen qualifying diagnosis: COPD Home oxygen secondary diagnosis: CHF SpO2 on room air (%): 85 Frequency of home oxygen needed: continuous Home oxygen delivery device: nasal cannula Concentrator: Yes E-tanks for mobility and back up: Yes If ordering portable O2, is the patient mobile in the home?: Yes I certify that, based on these findings, the home oxygen is medically necessary for this patient for the following length of time. Length of time home oxygen needed: 99 years Home Oxygen Comment: a
--- NOTE | 2017-11-10 13:58 | PDHOMEO2F ---
Home Oxygen Face to Face Home Orders: I certify that a physician or a nurse practitioner or physician's primary teaching assistant has had a nwnv-au-lifr encounter with this patient on the date of this order due to the diagnosis listed, which relates to the primary reason the patient requires home oxygen. Alternative treatments have been tried, or considered, and deemed ineffective. It is anticipated that supplemental oxygen will result in improvement with treatment. Home oxygen qualifying diagnosis: COPD Home oxygen secondary diagnosis: CHF SpO2 on room air (%): 85 Frequency of home oxygen needed: continuous Home oxygen liters per minute: 3 Home oxygen delivery device: nasal cannula Concentrator: Yes E-tanks for mobility and back up: Yes If ordering portable O2, is the patient mobile in the home?: Yes I certify that, based on these findings, the home oxygen is medically necessary for this patient for the following length of time. Length of time home oxygen needed: 99 years
[2017-11-10 14:13] VITALS: RESP 20; O2SAT 85
--- NOTE | 2017-11-10 16:36 | ASDISCHSUM ---
Discharge Information Plan Status:Home with No Needs Medically Cleared to Leave:11/09/2017 Discharge Date:11/10/2017 04:01 PM CM D/C Disposition: ADT D/C Disposition:Home Health Service Projected Discharge Date:11/10/2017 12:00 AM Transportation at D/C: Discharge Delay Reason: Follow-Up Date:11/10/2017 12:00 AM Discharge Slot: Final Diagnosis: Placement Information Patient Contact Information Contact Name:SURJIT Relationship:Ramírez Address:[phone] OFFICE PHONE City:[place] Alternate Phone: [facility]/Zip Code:[place] [address] Email: Financial Information Financial Class: Primary Plan Desc:MEDICARE INPATIENT Primary Plan Number:[id number] [facility] Secondary Plan Number:[id number] Assessment Information [facility] CM Progress Note CM Note CM Note Notes: Patient admitted for a hypertensive urgency. She has also had a 40lb weight gain in the last few months. She is being followed by hospitalists and cardiology. She will have a LexiScan tomorrow. She lives independently at [facility]. She has family locally. PT/OT have been ordered and are pending. CM will follow for any discharge needs. Date Signed: 11/05/2017 02:52 PM Electronically Signed By:Carlita Maddox RN [facility] CM Progress Note CM Note CM Note Notes: PT recommendation is for out pt PT. Met w/pt today to discuss dc poc. She lives at [facility]. She has help w/meds and some ADL's. She also currently receives PT there twice/week. Anticipate that she will dc back to [facility] w/no needs. CM will follow. Date Signed: 11/06/2017 02:43 PM Electronically Signed By:Tri Fisher RN [facility] CM Progress Note CM Note CM Note Notes: Per therapies patient should have no needs to return to assisted living. CM available should needs arise. Date Signed: 11/09/2017 04:48 PM Electronically Signed By:Chelsea Weston RN Case Management Discharge Plan Note Case Management Discharge Discharge Order Complete? Answers: Yes Patient to Obtain Answers: Independently Medications Transportation Arranged Answers: Other Notes: [facility] Transport will Pick (Date 11/10/2017 03:45 PM & Time) [place] Complete Answers: No Case Management Transport Answers: Yes Form Complete Faxed Final Orders Answers: Yes Agency/Facility Transfer Answers: Yes Report Printed & Faxed to Receiving Agency Family Notified Answers: Yes Discharge Comments Notes: Pt is being discharged back to [facility] today. GODWIN spoke w/ ABIMBOLA Spears at [facility] and she will arrange transportation. CM sent d/c orders to [facility]. GODWIN provided ABIMBOLA Rose w/ phone number to give report to RN at [facility]. Pt will continue to recieve PT from [facility]. RT will arrange for liquid o2 portable at home. Pt will use her concentrator in the meanwhile. CM available for changes. Plan: [facility] Date Signed: 11/10/2017 02:27 PM Electronically Signed By:EMIGDIO Cruz Intervention Information Intervention Type:*IM-Signed Date of Service:11/10/2017 03:57 PM Patient Type:Inpatient Staff Member:Merced Bellamy Hours: Discipline: Severity: Comment:
--- NOTE | 2017-11-11 06:27 | GDS ---
[f rep st] DISCHARGE SUMMARY DIAGNOSES: 1. Acute diastolic congestive heart failure. 2. Exertional angina. 3. Hypertensive urgency. 4. Chronic reactive airway disease with inadequate control. 5. Severe deconditioning and impaired mobility. CONSULTATIONS: Mayito Argueta MD and Westley Woods MD of [facility]. PROCEDURES: Lexiscan stress testing with myocardial perfusion imaging showing reversible ischemia of the left ventricular apex with normal ejection fraction. HOSPITAL COURSE: The patient is an 82-year-old woman with known coronary disease and known chronic r eactive airway disease. She came in the hospital with exertional shortness of breath that was fairly limiting and also several weeks worth of exertional chest tightness. She does have a history of cor onary disease and stents placed several years ago. At the time of her admission, she had evidence of pulmonary edema, some wheezing, some mild chronic renal insufficiency, and normal troponins. Her EK Gs did not demonstrate acute ischemia or injury. The patient was started on diuretic therapy and inaliyah garciay had some improvement. When it seemed that she was probably close to her dry weight, diuretics were discontinued. However, at that point, she still remained quite limited by shortness of breath. She was started on Ranexa to try and manage her exertional angina symptoms after she made decision to avoid angiography and angioplasty by personal preference. The Ranexa did seem to improve her arian na somewhat; however, she was still hampered by significant shortness of breath. On repeat chest x-r ay, there is still some mild pulmonary edema. It is also noticed that she continued to have wheezing on lung exam. The patient does have known reactive airway disease and has an albuterol inhaler but has never used any long-acting inhalers. The patient was restarted on oral diuretic with Lasix and a lso started on Symbicort inhaler twice daily. With the diuresis and the Symbicort, she had remarkabl e improvement in her dyspnea and was able to ambulate much more easily. She is felt stable for disch arge home. She has followup appointment to see Dr. Nino Zhu in 1 week and followup appointment t o see Dr. Dima Springer within the coming months. /[id number]/MODL
== END 2017-11-10 16:01 | DRG 304 ==
LOC: EDUNIT# → F2W 18:20 → OBSVTOIN 19:10
PROVIDERS: ADMIT Internal Medicine; ATTEND Internal Medicine
DX: I16.0 Hypertensive urgency (principal); I11.0 Hypertensive heart disease with heart failure; I50.31 Acute diastolic (congestive) heart failure; I20.8 Other forms of angina pectoris; J45.909 Unspecified asthma, uncomplicated; I25.2 Old myocardial infarction; G47.33 Obstructive sleep apnea (adult) (pediatric); K21.9 Gastro-esophageal reflux disease without esophagitis; Z95.5 Presence of coronary angioplasty implant and graft; Z96.652 Presence of left artificial knee joint
CPT/HCPCS: 96374; 97110-GO; 97116-GP; 97161-GP; 97165-GO; 97530-GO; 97530-GP; 97535-GO; A9500; G8978-GP-CJ; G8979-GP-CI; G8987-GO-CI; G8988-GO-CI; J1650; J1940; J2785; J3490

== ENCOUNTER 2018-02-02 14:47 | Emergency (ER) | payer OTHER ==
[2018-02-02 14:55] VITALS: RESP 18; TEMP 97.9
--- NOTE | 2018-02-02 15:25 | EDPHY ---
General Time Seen by Provider: 02/02/18 15:03 Narrative: CHIEF COMPLAINT: High blood pressure, dysuria HISTORY OF PRESENT ILLNESS: Patient presents from [facility] with complaints of high blood pressure and dysuria. She says her blood pressure has been very labile since October when she was admitted for hypertensive urgency with multiple medication changes. She said it has been up and down for 2-3 months but over the past 2 days it has been even higher. The highest pressure saw was 220 mg systolic pressure. She has had no headache or chest pain. She has been concerned due to the persistence of the high blood pressure readings. She had recent changes of her Norvasc, going from wound once daily to twice daily on January 31. She also had a decreased of her metoprolol from twice daily to once daily on December 29. She has no weight gain or fluid retention lower extremities. She contacted [facility] and they recommended she come to this facility. REVIEW OF SYSTEMS: Ten systems reviewed and are negative unless otherwise noted in the HPI PCP: Dr. Manuel SPECIALISTS: [facility] PAST MEDICAL HISTORY: Hypertension, coronary artery disease with MD, osteoarthritis, vertigo, depression, systolic murmur, asthma, anxiety, chronic back pain, reflux, sleep apnea, RLS, osteopenia, kyphosis PAST SURGICAL HISTORY: No recent surgeries SOCIAL HISTORY: Nonsmoker. Lives in assisted living. Requires 24 hr a day supplemental oxygen. FAMILY HISTORY: Noncontributory EXAMINATION General Appearance: Alert, no distress Head: normocephalic, atraumatic Eyes: Pupils equal and round, no conjunctival pallor or injection ENT, Mouth: Mucous membranes moist Neck: Normal inspection, supple, non-tender Respiratory: Mild rhonchi. No wheezing or crackles. Cardiovascular: Regular rate and rhythm Gastrointestinal: Obese Abdomen is soft and nontender. No flank pain. Back: non-tender, no bony abnormalities Neurological: GCS 15. A&O, nonfocal, strength symmetric. Skin: Warm and dry, no rash Extremities: Nontender, symmetric 1+ pedal edema. Psychiatric: Mood and affect normal DIFFERENTIAL DIAGNOSES: Including but not limited to hypertension, hypertensive urgency, hypertensive emergency, chronic hypertension, UTI, dehydration MDM: 3:10 p.m. Reports of increased blood pressure readings over the past week. Her blood pressure is normal here in the emergency department with multiple values well under 180 mm systolic. She does have mild dysuria, thus I have ordered urinalysis and urine microscopy. I will attempt to discuss her medications with her cardiology HOISTING LABORER as they have recently changed. 4:05 p.m. Urinalysis is positive for leukocyte esterase and bacteria. I have ordered Keflex and urine culture. 4:10 p.m. I discussed the case with Cardiology HOISTING LABORER, Edwin. We have reviewed the patient's case and current medications. We discussed her current vital signs. He recommends that we increase her metoprolol succinate to 100 mg by mouth at night daily. This is currently 75 mg. I have discussed this with the patient she is agreeable to this. I informed her that she may need to return to her 75 mg dosing as her blood pressure has been normal here. She has no chest pain or headache. She has no flank pain or abdominal pain. Vital signs remained stable. She will be discharged home with instructions to contact [facility] for follow-up, and Edwin informs me that they will call her to attempt to move her February 16 appointment up. She is discharged home stable condition. SUPERVISION: Patient was independently examined, but I discussed the case with my secondary supervising physician Dr. Solano - History Smoking Status: Former smoker - Objective Vital Signs: Initial Vital Signs Temperature (C) 97.9 F 02/02/18 14:49 Heart Rate 70 02/02/18 14:49 Respiratory Rate 18 02/02/18 14:49 Blood Pressure 142/104 H 02/02/18 14:49 O2 Sat (%) 93 02/02/18 14:49 O2 Delivery Mode Nasal Cannula O2 (L/minute) 3 Allergies/Adverse Reactions: latex [Latex] Allergy (Intermediate, Verified 11/04/17 16:38) Other-Enter Comments Sulfa (Sulfonamide Antibiotics) Allergy (Mild, Verified 11/04/17 16:38) Other-Enter Comments zolpidem [From Ambien] Allergy (Verified 11/04/17 16:38) WALNUTS Allergy (Severe, Uncoded 08/13/13 15:39) Anaphylaxis dark greens Allergy (Mild, Uncoded 02/02/18 14:55) mucosal irritation CT CONTRAST Allergy (Uncoded 08/13/13 15:39) Home Medications: Medication Instructions Recorded Budesonide [Rhinocort Aqua] 2 sprays EACHNARE DAILY PRN 08/13/13 Clopidogrel Bisulfate [Plavix (*)] 75 mg PO DAILY 08/13/13 ESCITALOPRAM OXALATE [LEXAPRO] 20 mg PO DAILY 08/13/13 Herbals/Supplements -Info Only 1 each PO DAILY 08/13/13 Metoprolol Tartrate [Lopressor 50 75 mg PO BIDMEAL 08/13/13 mg (*)] Pantoprazole Sodium [Protonix 40mg 40 mg PO BID 08/13/13 (*)] chlordiazePOXIDE [Librium 5 mg (*)] 5 mg PO HS 08/13/13 amLODIPine BESYLATE [Norvasc 5 mg 5 mg PO HS 07/18/14 (*)] Bisacodyl [Dulcolax] 10 mg RC DAILY PRN #6 supp.rect 07/17/17 Polyethylene Glycol 3350 [Miralax 17 gm PO DAILY PRN #12 pkt 07/17/17 17 gm (*)] Albuterol Hfa Anes Only [Proair 2 puffs IH QID PRN 11/04/17 Hfa Icu (*)] Atorvastatin Calcium [Lipitor 40 40 mg PO HS 11/04/17 mg (*)] Cetirizine [ZyrTEC 10 mg (*)] 10 mg PO DAILY PRN 11/04/17 Fenofibrate,Micronized 200 mg PO DAILY 11/04/17 [Fenofibrate] Lidocaine HCl [Astero] 30 ml TP QID PRN 11/04/17 Nitroglycerin [Nitrostat 0.4 mg 0.4 mg SL Q5M PRN 11/04/17 (*)] Sennosides/Docusate Sodium 1 each PO BID PRN 11/04/17 [SENEXON-S TABLET] traMADol [Ultram 50 mg (*)] 50 mg PO Q6H PRN 11/04/17 Budesonide/Formoterol 80/4.5 2 puffs IH BID #1 mdi 11/10/17 [Symbicort 80-4.5 Mcg Inhaler] Losartan Potassium [Cozaar 50 mg 100 mg PO DAILY #60 tab 11/10/17 (*)] Ranolazine [Ranexa] 500 mg PO BID #60 tab.er 11/10/17 Cephalexin [Keflex (*)] 500 mg PO TID #21 cap 02/02/18 Laboratory Results: 02/02/18 15:35 Urine Color YELLOW Urine Appearance HAZY Urine pH 5.0 (5.0-7.5) Ur Specific [place] 1.021 (1.002-1.030) Urine Protein 1+ H (NEGATIVE) Urine Ketones NEGATIVE (NEGATIVE) Urine Blood NEGATIVE (NEGATIVE) Urine Nitrate NEGATIVE (NEGATIVE) Urine Bilirubin NEGATIVE (NEGATIVE) Urine Urobilinogen NEGATIVE EU EU (0.2-1.0) Ur Leukocyte Esterase 2+ H (NEGATIVE) Urine RBC 1-3 /hpf /hpf (0-3) Urine WBC 25-50 /hpf H /hpf (0-3) Ur Epithelial Cells 1+ /lpf /lpf (NONE-1+) Hyaline Casts 1-5 /lpf /lpf (0-1) Urine Mucus TRACE /lpf /lpf (NONE-1+) Urine Glucose NEGATIVE (NEGATIVE) Medications Given: Discontinued Medications Acetaminophen (Tylenol) 650 mg PO EDNOW ONE Stop: 02/02/18 16:25 Last Admin: 02/02/18 16:39 Dose: 650 mg Cephalexin HCl (Keflex) 500 mg PO EDNOW ONE PRN Reason: Protocol Stop: 02/02/18 16:09 Last Admin: 02/02/18 16:39 Dose: 500 mg Departure - Departure Disposition: Home, Routine, Self-Care Clinical Impression: UTI (urinary tract infection) Qualifiers: Urinary tract infection type: acute cystitis Hematuria presence: without hematuria Qualified Code(s): N30.00 - Acute cystitis without hematuria Hypertension Qualifiers: Hypertension type: essential hypertension Qualified Code(s): I10 - Essential ( primary) hypertension Condition: Good Instructions: Cephalexin (By mouth), Metoprolol (By mouth), Urinary Tract Infection in Women (DC), Chronic Hypertension (ED), DASH Eating Plan (ED) Additional Instructions: 1. Contact [facility] for follow-up 2. Change your evening metoprolol succinate dose to 100 mg total every evening. 3. Keflex as prescribed to completion for urinary tract infection Referrals: Dyan Hair MD [Primary Care Provider] - As per Instructions [facility] [Provider Group] - As per Instructions Prescriptions: Cephalexin [Keflex (*)] 500 mg PO TID #21 cap
[2018-02-02] MEDS ORDERED: CEPHALEXIN 500 MG CAP PO ONE (16:08)
[2018-02-02 16:24] VITALS: BP 154/76; PULSE 60; O2SAT 97
[2018-02-02] MEDS ORDERED: ACETAMINOPHEN 325 MG TAB PO ONE (16:24)
== END 2018-02-02 16:45 | disposition home or self-care (01) ==
DX: N30.00 Acute cystitis without hematuria (principal); I10 Essential (primary) hypertension; J45.909 Unspecified asthma, uncomplicated; I25.2 Old myocardial infarction; I25.10 Atherosclerotic heart disease of native coronary artery without angina pectoris; Z91.040 Latex allergy status; Z87.891 Personal history of nicotine dependence

== ENCOUNTER → 2018-02-23 | Outpatient (CLI) | payer OTHER | LOC: FIMAGING 11:13 | PROVIDERS: ATTEND Internal Medicine Pulmonary Disease | DX: R91.1 Solitary pulmonary nodule (principal); I51.7 Cardiomegaly; I25.10 Atherosclerotic heart disease of native coronary artery without angina pectoris; M41.84 Other forms of scoliosis, thoracic region; Z87.891 Personal history of nicotine dependence | CPT/HCPCS: 71250-PO ==

== ENCOUNTER 2018-03-25 17:12 | Inpatient (IN) | payer OTHER ==
--- NOTE | 2018-03-25 17:15 | EDPHY ---
HPI/HX/ROS/PE/MDM Narrative: CHIEF COMPLAINT: Nausea, vomiting, diarrhea HISTORY OF PRESENT ILLNESS: The patient is an anticoagulated (Plavix) 83 y/o female with a history of CHF ( on Ranexa and 3L oxygen), cardiac stents, and an appendectomy arriving via EMS complaining of nausea, vomiting, diarrhea, and lightheadedness for 2 days. Today she had 2 episodes of vomiting and several episodes of diarrhea. Denies blood in vomit or stool or history of C. diff. Per EMS, the patient reports increasing abdominal distension. When EMS arrived to the patient's detention , the patient was hyperventilating and had a temperature of 101 degrees. While en route to the emergency department the patient's supplemental oxygen had to be increased to 6L due to lower O2sats. At 13:30 the patient was given Tylenol. No chills, denies complaints of chest pain or shortness of breath, denies palpitations, urinary complaints, headache. REVIEW OF SYSTEMS: Aside from elements discussed in the HPI, a comprehensive 10-point review of systems was reviewed and is negative. She has had an intermittent cough. PAST MEDICAL HISTORY: CHF, asthma, cardiac stents, anxiety, appendectomy SOCIAL HISTORY: Resides at [facility], assisted living, retired, single VITAL SIGNS: Reviewed by me GENERAL: Pleasant, answers questions well, moderately obese, resting comfortably in no obvious respiratory distress. HEENT: Atraumatic. Eyes: No icterus, no injection. Mouth: dry mucous membranes. No erythema or lesions. Neck: supple with no adenopathy. LUNGS: Clear to auscultation bilaterally anteriorly, no wheezes, rhonchi or rales. CARDIAC: Regular rate and rhythm, harsh 3/6 systolic murmur heard on left sternal border, no rubs or gallops. ABDOMEN: Distended, mild generalized abdominal tenderness. Soft, bowel sounds normal. BACK: No CVA tenderness. EXTREMITIES: No trauma. No edema. Range of motion is normal throughout. NEURO: Alert and oriented, grossly nonfocal. SKIN: Warm and dry, contact dermatitis on left monsalve. PSYCHIATRIC: Normal mentation, no agitation. Portions of this note were transcribed by a medical malpractice paralegal. I personally performed a history, physical exam, medical decision making, and confirmed accuracy of information the transcribed note. ED Course: The patient is an anticoagulated (Plavix) 83 y/o female with a history of CHF ( on Ranexa and 3L oxygen), cardiac stents, and an appendectomy arriving via EMS presenting with nausea, vomiting, diarrhea, and lightheadedness for 2 days. On exam she has a distended abdomen associated with mild generalized tenderness and dry mucous membranes. She has needed to increase her O2 due to low saturations on her usual 3 L. Labs, EKG, chest x-ray, and abdominopelvic CT ordered. 1L IV NS and 600mg PO Ibuprofen given. 1713: I met EMS on arrival. 1800: Patient's lactate is 2.5 and her white count is 11; she has severe sepsis. Will provide 30 cc/kilos over the next 6 hr given the fact that the patient has significant congestive heart failure. 1832: CT abdomen pelvis performed without IV contrast. Spoke with radiologist , there is no sign of obstruction. There is atelectasis vs. fluid overload at left lung base. 185: 12-LEAD EKG: Please see the full report in [facility]. My interpretation: Sinus tachycardia with a rate of 102, LBBB. This bundle branch block is new compared to old EKG. 1906: 1gm PO Tylenol given. 190: Patient's chest x-ray interpreted by Dr. Varghese as revealing bilateral lower lobe pneumonia. 1914: Reassessed patient and discussed imaging and laboratory results. 500mg IV Azithromycin, 1gm IV Rocephin. 1917: Consulted with hospitalist service, Dr. Pedraza accepts admission of this patient. 1948: Consulted with Dr. Leon, brick setter operator, regarding this patient's murmur and EKG changes. They agree to consult on this patient during her admission. Severe Sepsis/Septic Shock Care Note The patient presents to the ED with pneumonia identified as an acute infection. The patient did have evidence of end-organ dysfunction and met criteria for severe sepsis. This condition was identified by myself at 1600. The patients vital signs are 126/53, 78, 95 on 5 liter, 39.1 temp, 24 RR. The patient has a venous lactic acid performed within 3 hours of the identification of severe sepsis which was found to be 2.5. The patient has blood cultures drawn and received ceftriaxone and azithromycin IV, per the severe sepsis treatment protocol. The initial lactate was elevated and rechecked within 6 hours of the identification time of severe sepsis and found to be: 1.8. MDM: Differential diagnosis for fever in adults was considered including but not limited to pneumonia, urinary tract infection, gastroenteritis, endocarditis, viral syndrome, and influenza. - Data Points Imaging Results: Imaging Impressions Chest X-Ray 03/25/18 17:32 Impression: Bilateral lower lobe pneumonia. Abdomen/Pelvis CT 03/25/18 17:41 Impression: 1. No definite etiology for the patient's symptoms. 2. Bibasilar consolidation, with tiny effusions and interlobular septal thickening, which could be related to a combination of fluid overload/CHF and atelectasis/aspiration. Pneumonia is considered less likely. Follow-up chest CT is recommended in 3 months. 3. Fatty liver. 4. Degenerative change in the spine. 5. Additional findings, as above. Findings discussed with Luciana Larsen M.D., on March 25, 2018 at 1832. Attention: This examination does not use radiographic contrast, and as such, provides only a limited evaluation of the abdomen, pelvis, and retroperitoneum. Imaging: Discussed imaging studies w/ cooler room worker Radiologist, I viewed and interpreted images myself Laboratory Results: Laboratory Results 03/25/18 17:41 03/25/18 17:41 03/25/18 03/25/18 03/25/18 18:26 18:26 17:41 WBC RBC Hgb Hct MCV MCH MCHC RDW Plt Count MPV Neut % (Auto) Lymph % (Auto) [place] % (Auto) Eos % (Auto) Baso % (Auto) Nucleat RBC Rel Count Absolute Neuts (auto) Absolute Lymphs (auto) Absolute Monos (auto) Absolute Eos (auto) Absolute Basos (auto) Absolute Nucleated RBC Immature Gran % Immature Gran # Platelet Estimate PT 14.3 SEC SEC (12.0-15.0) INR 1.09 (0.83-1.16) APTT 24.3 SEC SEC (23.0-38.0) VBG Lactic Acid Sodium 137 mEq/L mEq/L (135-145) Potassium 4.1 mEq/L mEq/L (3.5-5.2) Chloride 99 mEq/L mEq/L (97-110) Carbon Dioxide 24 mEq/l mEq/l (22-31) Anion Gap 14 mEq/L mEq/L (8-16) BUN 12 mg/dL mg/dL (7-23) Creatinine 0.8 mg/dL mg/dL (0.6-1.0) Estimated GFR > 60 Glucose 151 mg/dL H mg/dL (70-100) Calcium 9.7 mg/dL mg/dL (8.5-10.4) Total Bilirubin 1.2 mg/dL mg/dL (0.1-1.4) Conjugated Bilirubin 0.8 mg/dL H mg/dL (0.0-0.5) Unconjugated Bilirubin 0.4 mg/dL mg/dL (0.0-1.1) AST 82 IU/L H IU/L (14-46) ALT 58 IU/L H IU/L (9-52) Alkaline Phosphatase 69 IU/L IU/L (38-126) Troponin I 0.035 ng/mL H ng/mL (0.000-0.034) NT-Pro-B Natriuret Pep 2150 pg/mL H pg/mL (0-450) Total Protein 7.0 g/dL g/dL (6.3-8.2) Albumin 4.0 g/dL g/dL (3.5-5.0) Lipase 70 IU/L IU/L (23-300) Urine Color YELLOW Urine Appearance CLEAR Urine pH 5.0 (5.0-7.5) Ur Specific [place] 1.017 (1.002-1.030) Urine Protein 2+ H (NEGATIVE) Urine Ketones NEGATIVE (NEGATIVE) Urine Blood NEGATIVE (NEGATIVE) Urine Nitrate NEGATIVE (NEGATIVE) Urine Bilirubin NEGATIVE (NEGATIVE) Urine Urobilinogen NEGATIVE EU EU (0.2-1.0) Ur Leukocyte Esterase NEGATIVE (NEGATIVE) Urine RBC 1-3 /hpf /hpf (0-3) Urine WBC 5-10 /hpf H /hpf (0-3) Ur Epithelial Cells TRACE /lpf /lpf (NONE-1+) Ur Culture Indicated? NOT INDICATED (NI) Urine Glucose NEGATIVE (NEGATIVE) 03/25/18 03/25/18 17:41 17:40 WBC 10.87 10^3/uL H 10^3/uL (3.80-9.50) RBC 4.15 10^6/uL L 10^6/uL (4.18-5.33) Hgb 12.6 g/dL g/dL (12.6-16.3) Hct 37.8 % L % (38.0-47.0) MCV 91.1 fL fL (81.5-99.8) MCH 30.4 pg pg (27.9-34.1) MCHC 33.3 g/dL g/dL (32.4-36.7) RDW 14.8 % % (11.5-15.2) Plt Count 262 10^3/uL 10^3/uL (150-400) MPV 9.7 fL fL (8.7-11.7) Neut % (Auto) 91.9 % H % (39.3-74.2) Lymph % (Auto) 3.8 % L % (15.0-45.0) [facility] % (Auto) 1.6 % L % (4.5-13.0) Eos % (Auto) 2.1 % % (0.6-7.6) Baso % (Auto) 0.1 % L % (0.3-1.7) Nucleat RBC Rel Count 0.0 % % (0.0-0.2) Absolute Neuts (auto) 10.00 10^3/uL H 10^3/uL (1.70-6.50) Absolute Lymphs (auto) 0.41 10^3/uL L 10^3/uL (1.00-3.00) Absolute Monos (auto) 0.17 10^3/uL L 10^3/uL (0.30-0.80) Absolute Eos (auto) 0.23 10^3/uL 10^3/uL (0.03-0.40) Absolute Basos (auto) 0.01 10^3/uL L 10^3/uL (0.02-0.10) Absolute Nucleated RBC 0.00 10^3/uL 10^3/uL (0-0.01) Immature Gran % 0.5 % % (0.0-1.1) Immature Gran # 0.05 10^3/uL 10^3/uL (0.00-0.10) Platelet Estimate Not Reported PT INR APTT VBG Lactic Acid 2.5 mmol/L H mmol/L (0.7-2.1) Sodium Potassium Chloride Carbon Dioxide Anion Gap BUN Creatinine Estimated GFR Glucose Calcium Total Bilirubin Conjugated Bilirubin Unconjugated Bilirubin AST ALT Alkaline Phosphatase Troponin I NT-Pro-B Natriuret Pep Total Protein Albumin Lipase Urine Color Urine Appearance Urine pH Ur Specific [place] Urine Protein Urine Ketones Urine Blood Urine Nitrate Urine Bilirubin Urine Urobilinogen Ur Leukocyte Esterase Urine RBC Urine WBC Ur Epithelial Cells Ur Culture Indicated? Urine Glucose Medications Given: Sodium Chloride (Ns) 2,600 mls @ 433.3333 mls/hr 30 ml/kg infuse over 6 hr ( 2600 ml) IV EDNOW ONE PRN Reason: Protocol Stop: 03/26/18 00:31 Last Admin: 03/25/18 19:59 Dose: 2,600 mls Discontinued Medications Acetaminophen (Tylenol) 1,000 mg PO EDNOW ONE Stop: 03/25/18 19:02 Last Admin: 03/25/18 19:06 Dose: 1,000 mg Sodium Chloride (Ns) 1,000 mls @ 0 mls/hr IV ONCE ONE; Wide Open PRN Reason: Protocol Stop: 03/25/18 17:35 Last Admin: 03/25/18 17:48 Dose: 1,000 mls Ceftriaxone Sodium/Dextrose (Rocephin 1 Gm (Premix)) 50 mls @ 100 mls/hr IV EDNOW ONE PRN Reason: Protocol Stop: 03/25/18 19:36 Last Admin: 03/25/18 19:45 Dose: 50 mls Azithromycin 500 mg/ Sodium (Chloride) 255 mls @ 255 mls/hr IV EDNOW ONE PRN Reason: Protocol Stop: 03/25/18 20:07 Last Admin: 03/25/18 20:56 Dose: 255 mls Ibuprofen (Motrin) 600 mg PO EDNOW ONE Stop: 03/25/18 17:35 Last Admin: 03/25/18 18:18 Dose: 600 mg General Time Seen by Provider: 03/25/18 17:12 Initial Vital Signs: Initial Vital Signs Temperature (C) 39.4 C H 03/25/18 17:18 Heart Rate 107 H 03/25/18 17:18 Respiratory Rate 24 H 03/25/18 17:18 Blood Pressure 178/79 H 03/25/18 17:18 O2 Sat (%) 95 03/25/18 17:18 O2 Delivery Mode Nasal Cannula O2 (L/minute) 5 Allergies/Adverse Reactions: latex [Latex] Allergy (Intermediate, Verified 03/25/18 17:17) Other-Enter Comments Sulfa (Sulfonamide Antibiotics) Allergy (Mild, Verified 03/25/18 17:17) Other-Enter Comments zolpidem [From Ambien] Allergy (Verified 03/25/18 17:17) WALNUTS Allergy (Severe, Uncoded 03/25/18 17:17) Anaphylaxis dark greens Allergy (Mild, Uncoded 03/25/18 17:17) mucosal irritation CT CONTRAST Allergy (Uncoded 03/25/18 17:17) Home Medications: Medication Instructions Recorded Budesonide [Rhinocort Aqua] 2 sprays EACHNARE DAILY PRN 08/13/13 Clopidogrel Bisulfate [Plavix (*)] 75 mg PO DAILY 08/13/13 ESCITALOPRAM OXALATE [LEXAPRO] 20 mg PO DAILY 08/13/13 Herbals/Supplements -Info Only 1 each PO DAILY 08/13/13 Pantoprazole Sodium [Protonix 40mg 40 mg PO BIDMEAL 08/13/13 (*)] chlordiazePOXIDE [Librium 5 mg (*)] 5 mg PO SUMOTUWETHSA@08/13/13 Bisacodyl [Dulcolax] 10 mg RC DAILY PRN #6 supp.rect 07/17/17 Polyethylene Glycol 3350 [Miralax 17 gm PO DAILY PRN #12 pkt 07/17/17 17 gm (*)] Atorvastatin Calcium [Lipitor 40 40 mg PO HS 11/04/17 mg (*)] Cetirizine [ZyrTEC 10 mg (*)] 10 mg PO DAILY PRN 11/04/17 Fenofibrate,Micronized 200 mg PO DAILY 11/04/17 [Fenofibrate] Lidocaine HCl [Astero] 30 ml TP QID PRN 11/04/17 Nitroglycerin [Nitrostat 0.4 mg 0.4 mg SL Q5M PRN 11/04/17 (*)] Sennosides/Docusate Sodium 1 each PO DAILY 11/04/17 [SENEXON-S TABLET] traMADol [Ultram 50 mg (*)] 25 mg PO Q6H PRN 11/04/17 Acetaminophen [Tylenol ES 500 mg 1,000 mg PO TID 03/25/18 (*)] Albuterol [Proventil Inhaler HFA 2 puffs IH QID PRN 03/25/18 (*)] Albuterol [Proventil Neb] 3 ml IH Q4 PRN 03/25/18 Budesonide/Formoterol 80/4.5 2 puffs IH BID@03/25/18 [Symbicort 80-4.5 Mcg Inhaler] Cholecalciferol Vit D3 [Vitamin D3 50,000 unit PO Q30D 03/25/18 (*)] Cyanocobalamin/Folic AC/Vit B6 1 each PO BID 03/25/18 [[place] Tablet] Furosemide [Lasix 40 MG (*)] 40 mg PO DAILY 03/25/18 Guaifenesin/Codeine Phosphate 10 ml PO HS PRN 03/25/18 [Guaifenesin-Codeine Liquid] Losartan Potassium [Cozaar 50 mg 100 mg PO HS 03/25/18 (*)] Metoprolol Succinate Xr [Toprol Xl 100 mg PO HS 03/25/18 50 mg (*)] Ondansetron HCl [Zofran] 4 mg PO Q6 PRN 03/25/18 Ranolazine [Ranexa] 500 mg PO BIDMEAL 03/25/18 Sennosides/Docusate Sodium 1 each PO BID PRN 03/25/18 [Senokot-S (OTC)] amLODIPine BESYLATE [Norvasc 10 mg 5 mg PO BIDMEAL 03/25/18 (*)] Departure - Departure Disposition: [facility] Clinical Impression: Severe sepsis, New onset left bundle branch block (LBBB) Pneumonia Qualifiers: Pneumonia type: due to unspecified organism Laterality: bilateral Lung location : lower lobe of lung Qualified Code(s): J18.1 - Lobar pneumonia, unspecified organism Aortic stenosis Qualifiers: Cardiac valve disease etiology: etiology unspecified Qualified Code(s): I35.0 - Nonrheumatic aortic (valve) stenosis Condition: Fair
[2018-03-25] MEDS ORDERED: IBUPROFEN 600 MG TAB PO ONE (17:34)
[2018-03-25] MEDS ORDERED: NS 1,000 ML IV ONE (17:34)
[2018-03-25 18:02] LABS: PLATELET COUNT 262 10^3/uL (150-400)
[2018-03-25] MEDS ORDERED: NS 2,600 ML IV ONE (18:32)
[2018-03-25 18:42] LABS: INR 1.09 (0.83-1.16); PROTIME(PATIENT) 14.3 SEC (12.0-15.0)
--- NOTE | 2018-03-25 18:53 | CPEKG ---
Heart Rate: 102 RR Interval: 588 P-R Interval: 176 QRSD Interval: 136 QT Interval: 396 QTC Interval: 516 P [place]: 78 QRS [place]: -26 T Wave [place]: 114 EKG Severity - ABNORMAL ECG - EKG Impression: new LBBB from prior EKG Impression: SINUS TACHYCARDIA EKG Impression: LEFT BUNDLE BRANCH BLOCK Electronically Signed By: Luciana Larsen 25-Mar-2018 21:02:29
[2018-03-25] MEDS ORDERED: ACETAMINOPHEN 500 MG TAB PO ONE (19:01)
[2018-03-25] MEDS ORDERED: AZITHROMYCIN IV 500 MG in NS 250 ML IV ONE (19:08)
[2018-03-25] MEDS ORDERED: ONDANSETRON 4 MG/2 ML VIAL IVP PRN (19:18)
[2018-03-25] MEDS ORDERED: ALBUTEROL 3 ML DEYVIAL IH PRN (20:42)
[2018-03-25] MEDS ORDERED: CETIRIZINE 10 MG TAB PO PRN (20:42)
[2018-03-25] MEDS ORDERED: LIDOCAINE HCL 4% TP PRN (20:42)
[2018-03-25] MEDS ORDERED: traMADol 50 MG TAB PO PRN (20:42)
--- NOTE | 2018-03-25 21:17 | GHP ---
[f rep st] HISTORY AND PHYSICAL DATE OF ADMISSION: 03/25/2018 CHIEF COMPLAINT: Fever and chills. HISTORY OF PRESENT ILLNESS: An 83-year-old female with a complicated past medical history including coronary artery disease, status post stenting, COPD on chronic oxygen, who presents with complaints o f 3 days of fatigue, fevers, chills. The morning of presentation the patient describes developing so me diarrhea and some cough. She reports she was recently started on a bowel regimen for preceding co nstipation and was additionally put on a new antibiotic. There was no blood in her stool and her fir st episode of diarrhea was today. She has additionally developed coughing that has been severe enoug h to develop post-tussive emesis. She again denies any blood in her emesis. Denies any known sick c ontacts. Denies any known dysuria. She was initially treated for a urinary tract infection over a w elem ago and was switched to a different antibiotic, Macrobid in the last week. She has not had any r ecent symptoms. Denies any lower extremity edema. Denies any other changes to her outpatient medica tions. The patient was seen in the Cardiology Clinic 1 month ago to the day where she was without co mplaint and continued on her outpatient cardiac medications. Patient currently lives at [facility] and chronically uses 3 L of oxygen. PAST MEDICAL HISTORY: 1. Coronary artery disease, status post stenting. 2. Hypertension. 3. Asthma. 4. Hyperlipidemia. 5. Gastroesophageal reflux disease. 6. Diastolic heart failure. SOCIAL HISTORY: Negative for tobacco. Very rare alcohol. No illicit drugs or marijuana. FAMILY HISTORY: Both parents are . ADVANCED DIRECTIVES: The patient is do not resuscitate. Her son is her medical decision maker. REVIEW OF SYSTEMS: A 10-point review of systems is negative with the exception of that reported in t he HPI. PHYSICAL EXAMINATION: VITAL SIGNS: Blood pressure systolic 98/58, heart rate 107, respiratory rate 18, saturating 95% on 6 L, febrile at 39.4. GENERAL: This is an elderly female, sitting up in bed. HEENT: Notable for dry mucous membranes. EYES: Negative for any icterus. CARDIAC: Patient is ta chycardic, but regular. Systolic murmur is heard across the chest, but best at the right upper alexander al border. PULMONARY: She has bibasilar rales. No wheezing is appreciated. GASTROINTESTINAL: Pos itive bowel sounds. Abdomen is soft and nontender. MUSCULOSKELETAL: Negative for any lower extremi ty edema. SKIN: Negative for any rashes. NEUROLOGIC: She is alert and oriented x3. PSYCHIATRIC: She is pleasant and cooperative on interview and examination. IMAGING STUDIES: Chest x-ray which I personally reviewed and interpreted, shows bilateral infiltrate s. EKG, which I personally reviewed and interpreted, shows sinus tachycardia with a left bundle branch b lock, which appears new. LABORATORY DATA: White count is 10.8, hematocrit 37.8, platelets of 262. Creatinine is 0.8. Tropon in is 0.035. BNP is 2150. ASSESSMENT AND PLAN: This is an 83-year-old female presenting with fevers and chills. 1. Sepsis: Patient is presenting with fever, tachycardia, leukocytosis, and hypotension. Suspected source is pulmonary at this time, based on the chest x-ray and the symptoms of cough. However, she has had a urinary tract infection treated in the outpatient setting with various antibiotics. It is certainly possible that we have an untreated pathogen resistant to previous antibiotic therapy. Will fluid resuscitate per the sepsis protocol. Will empirically treat for community-acquired pneumonia with ceftriaxone and azithromycin, which should duly cover any urinary pathogens at this time. We wi ll send a respiratory pathogen PCR, blood cultures, urinalysis, urine cultures, and a GI pathogen PCR if she has recurrent diarrhea, although I suspect the diarrhea may be related to her recent bowel re gimen and antibiotics. 2. Left bundle branch block. I did review the case with Cardiology. She has known coronary artery disease with an abnormal nuclear during her October 2017 hospitalization. She is on chronic cardiac medications and did not opt for cardiac catheterization at that time. I have asked the Cardiology s ee the patient in the morning. We will follow troponins and follow her on telemetry overnight. 3. Coronary artery disease. We will hold the patient's metoprolol and losartan in the setting of hy potension. We will continue her Ranexa. Again, follow troponins and telemetry overnight. Can discu ss the case with Cardiology further who are aware in the morning. 4. Hyperlipidemia. We will continue her outpatient fenofibrate. 5. Chronic hypoxic respiratory failure. We will continue the patient's Symbicort. The patient is n ot wheezing at this time. She is requiring more oxygen, which I suspect may be related to an underly ing pneumonia. We will follow the diagnostic workup. 6. Acute leukocytosis. Again there may be various possible sources including pulmonary, urinary, or gastrointestinal. We will send appropriate cultures and workup overnight and empirically treat this evening for community-acquired pneumonia. 7. Prophylaxis with Lovenox. 8. Diet is regular. 9. Disposition: Expecting greater than 2 midnights since the patient is elderly and presenting with sepsis requiring a high level of acute care and ongoing diagnostic workup. I have discussed the case with Dr. Leon from Cardiology. They will consult in the morning. /[id number]/MODL
[2018-03-25] MEDS: ATORVASTATIN CALCIUM 40 MG TAB PO SCH (22:08)
[2018-03-25] MEDS: guaiFENesin 600 MG TAB.ER PO SCH (22:08)
[2018-03-25] MEDS: CYANOCOBALAMIN PO SCH (22:10)
[2018-03-25] MEDS: VIT B6 PO SCH (22:10)
[2018-03-25] MEDS: FOLIC AC PO SCH (22:10)
[2018-03-25] MEDS: MELATONIN 3 MG TAB PO PRN (22:57)
[2018-03-25] MEDS: guaiFENesin/CODEINE PHOS 10 ML UDCUP PO PRN (23:35)
--- NOTE | 2018-03-26 00:02 | PDMN ---
Medical Necessity Medical necessity: C/M review: est. > 2 MN LOS for eval and TX of acute sepsis - suspected pulmonary source- possible various sources including urinary or gastrointestinal acute leukocytosis, requiring IV fluids in ED, planned echocardiogram, Cardiology consult, ongoing empiric treatment for community acquired pneumonia - IV Azithramycin, IV Ceftriaxone, cardiac monitoring. pulse oximetry, supplemental O2, acute inpt PT/OT, high level of acute care in ICU, comorbid left bundle branch block, history of CAD S/P stenting, chronic hypoxic respiratory failure, asthma, hyperlipidemia, GERD and diastolic heart failure per H/P.
[2018-03-26 04:14] LABS: PLATELET COUNT 221 10^3/uL (150-400)
[2018-03-26] MEDS: ACETAMINOPHEN 325 MG TAB PO PRN ×3 (04:22→18:39)
[2018-03-26] MEDS ORDERED: BUDESONIDE/FORMOTEROL 80/4.5 60 PUFFS/MDI IH SCH (08:00)
[2018-03-26] MEDS: AZITHROMYCIN IV 500 MG in D5W 250 ML IV SCH (08:32)
[2018-03-26] MEDS: RANOLAZINE 500 MG TAB.ER PO SCH ×2 (08:39→17:26)
[2018-03-26] MEDS: CLOPIDOGREL BISULFATE 75 MG TAB PO SCH (08:39)
[2018-03-26] MEDS: guaiFENesin 600 MG TAB.ER PO SCH ×2 (08:39→20:07)
[2018-03-26] MEDS: PANTOPRAZOLE SODIUM 40 MG TAB PO SCH ×2 (08:39→17:26)
[2018-03-26] MEDS: ENOXAPARIN 40 MG/0.4 ML SYR SC SCH (08:39)
[2018-03-26] MEDS: ESCITALOPRAM OXALATE 10 MG TAB PO SCH (08:39)
[2018-03-26] MEDS: FOLIC AC PO SCH ×3 (08:41→22:55)
[2018-03-26] MEDS: CYANOCOBALAMIN PO SCH ×3 (08:41→22:55)
[2018-03-26] MEDS: VIT B6 PO SCH ×3 (08:41→22:55)
[2018-03-26] MEDS: Fenofibrate,Micronized [Fenofibrate] 200 MG PO SCH (08:45)
[2018-03-26] MEDS ORDERED: FLUTICASONE NASAL 120 SPRAYS/16 GM MDI EACHNARE PRN (09:00)
[2018-03-26] MEDS: ONDANSETRON DISINTEGRATING 4 MG TAB PO PRN (11:05)
--- NOTE | 2018-03-26 11:14 | ECHO ---
[email or web address] [address] [address] Main: [phone] Fax: Transthoracic Echocardiogram Name: ALBAN OLVERA MR#: [id number] Study Date: 03/26/2018 Study Time: 10:04 AM Date of : 1935 Age: 83 year(s) Height: 157.5 cm (62 in.) Weight: 88 kg (194 lb.) BSA: 1.89 m2 Gender: Female Examination: Echo Indication: Elevated BNP, LBBB, Chest Pain Image Quality: Contrast: Requested by: Cecy Pedraza BP: 120 mmHg/62 mmHg Heart Rate: Rhythm: Tachycardia Indication: Elevated BNP, LBBB, Chest Pain Procedure Staff Burial Vault Deliverer And Installer: Junior Raymundo RDCS Reading Physician: Nino Zhu MD Requesting Provider: Conclusions: Normal size left ventricle. Mild concentric LV hypertrophy. EF is 64 %. Septal wall motion consistent with Bundle branch block. There is no evidence of any Left venticular wall motion abnormalities . Normal size right ventricle. Trivial mitral valve regurgitation. Moderate aortic cusp calcification is present. Moderate calcific aortic valve stenosis. The Mean PG is 39 mmHg with a Vmax of 3.5 m/s. Trivial tricuspid valve regurgitation. The pulmonary artery pressure is normal. Compared to echo of 08/2013, today's echo showed a change in in the aortic stenosis is now moderate..the lv fxn and lbbb are unchanged. Based on moderate aortic stenosis, a repeat echo may be considered in 1 yr unless there is a change in clinical status. Measurements: Chambers Valvular Assessment AV/MV Valvular Assessment TV/PV Normal Normal Normal Name Value Range Name Value Range Name Value Range Ao Christy (MM): 2.3 cm (2.2 cm-3.7 AV Vmax: 3.49 m/s (1 m/s-1.7 TR Vmax: 2.74 mm/s ( - ) cm) m/s) TR PGmax: 30 mmHg ( - ) IVSd (2D): 1.2 cm (0.6 cm-1.1 AV maxP mmHg ( - ) syst. PAP: 35 mmHg ( - ) cm) AV meanP mmHg ( - ) PV Vmax: 1.32 m/s (0.6 m/s-0.9 LVDd (2D): 3.7 cm (3.9 cm-5.3 VALENTE (VTI): 1.3 cm ( - ) m/s) cm) MV E Vmax: 1.28 m/s ( - ) PV PGmax: 7 mmHg ( - ) LVDs (2D): 2.5 cm (2.1 cm-4 MV A Vmax: 1.65 m/s ( - ) cm) MV E/A: 0.78 ( - ) LVPWd (2D): 1.2 cm ( - ) MV meanP mmHg ( - ) Patient: ALBAN OLVERA Study Date: 03/26/2018 Page 1 of 2 10:04 AM LVOTd 1.9 cm 1.9 cm mm MVA (Vmax): 2.5 m/s ( - ) LVEF (2D): 64 (>=54 %) Continued Measurements: Chambers Valvular Assessment AV/MV Valvular Assessment TV/PV Name Value Name Value Name Value LADs: 3.4 cm MV VTI: 39.50 cm CVP (est.): 5 mmHg LADs Lon.9 cm LA Area: 18.8 cm2 Findings: Left Ventricle: Normal size left ventricle. Mild concentric LV hypertrophy. Normal global systolic LV function. EF is 64 %. Diastolic dysfunction is present. . Septal wall motion consistent with Bundle branch block. There is no evidence of any Left venticular wall motion abnormalities . Right Ventricle: Normal size right ventricle. Left Atrium: The left atrium is normal in size. Right Atrium: The right atrium is normal in size. Mitral Valve: Mild mitral valve leaflet calcification is present. No mitral stenosis is present. Trivial mitral valve regurgitation. Aortic Valve: Moderate aortic cusp calcification is present. Moderate calcific aortic valve stenosis. The Mean PG is 39 mmHg with a Vmax of 3.5 m/s. Tricuspid Valve: Trivial tricuspid valve regurgitation. The pulmonary artery pressure is normal. Pulmonic Valve: The pulmonic valve is normal in appearance and function. Aorta: The aorta is normal. Pericardium: No pericardial effusion. (No Signature Object) Patient: ALBAN OLVERA Study Date: 03/26/2018 Page 2 of 2 10:04 AM [id number]
--- NOTE | 2018-03-26 13:50 | HOSPPROG ---
Hospitalist Progress Note Assessment/Plan: 83 yo F w cad admitted w malaise, weakness, bibasilar pneumonia, sepsis sepsis: not hypotensive repeat lactate source is lungs, evidenced by source of infection leukocytosis and elevated lactate cad: repeat trop suspect demand rather than ACS ; maintain euvolemia, yearly echo pneumonia: treat as CAP ceftriaxone/azithr day 2/ proph: lmwh cad: ranexa, statin, asa repeat trop dispo: inpt code: full Subjective: cxr w bibasilar pneumonia (interp by me). ekg w LBBB (interp by me) Objective: Vital Signs Temp Pulse Resp BP Pulse Ox 36.3 C 94 16 129/63 H 97 03/26/18 10:54 03/26/18 10:54 03/26/18 10:54 03/26/18 10:54 03/26/18 10:54 Microbiology 03/25/18 23:00 Gastrointestinal Tract Panel (PCR) - Final Stool No Organism Detected 03/25/18 21:54 Respiratory Panel (PCR) - Final Nasal, Sinus - [place] Viral Transport No Organism Detected Laboratory Results 03/26/18 03:50 03/26/18 03:50 03/25/18 03/26/18 03/27/18 05:59 05:59 05:59 Intake Total 255 2600 Output Total 600 Balance -345 2600 PT 14.3 SEC (12.0-15.0) 03/25/18 18:26 INR 1.09 (0.83-1.16) 03/25/18 18:26 - Physical Exam Constitutional: no apparent distress, appears nourished Eyes: PERRL, anicteric sclera Ears, Nose, Mouth, Throat: moist mucous membranes, hearing normal Cardiovascular: regular rate and rhythym, No systolic murmur Respiratory: no respiratory distress, No no rales or rhonchi Gastrointestinal: normoactive bowel sounds, soft, non-tender abdomen Genitourinary: no bladder fullness, No andujar in urethra Skin: warm Musculoskeletal: full muscle strength Neurologic: AAOx3, sensation intact bilaterally Psychiatric: interacting appropriately ICD10 Worksheet Patient Problems: Problems Problem Status Onset Aortic stenosis Acute New onset left bundle branch block (LBBB) Acute Pneumonia Acute Severe sepsis Acute Chest pain Acute Hypertension Acute Unstable angina Acute chronic disease [facility]/transitional care Acute Primary localized osteoarthrosis, lower leg Chronic
--- NOTE | 2018-03-26 16:26 | ASMTCMCOM ---
CM Note CM Note Notes: 03/26/2018 Case Management Note Pt admitted for sepsis. Met w/pt to discuss dispo needs. Pt lives in the [facility]. 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 Son Jessee [phone], lives nearby and visits often. Faxed updates to [facility] and called. If pt d/c with IV abx [facility] will request pt be in the SNF rehab. Discussed w/pt. Case Management d/c poc: return to [facility]. Assisted Living vs SNF rehab to be determined. Case Management to follow. Date Signed: 03/26/2018 12:01 PM Electronically Signed By:Latosha Batista RN
[2018-03-26] MEDS: ATORVASTATIN CALCIUM 40 MG TAB PO SCH (20:06)
[2018-03-26] MEDS: MELATONIN 3 MG TAB PO PRN (20:10)
[2018-03-26] MEDS: BUDESONIDE/FORMOTEROL 80/4.5 60 PUFFS/MDI IH SCH (22:53)
[2018-03-26] MEDS: guaiFENesin/CODEINE PHOS 10 ML UDCUP PO PRN (22:57)
[2018-03-27] MEDS: ACETAMINOPHEN 325 MG TAB PO PRN (02:54)
[2018-03-27] MEDS: traMADol 50 MG TAB PO PRN (02:54)
[2018-03-27] MEDS: PANTOPRAZOLE SODIUM 40 MG TAB PO SCH ×2 (08:43→17:06)
[2018-03-27] MEDS: AZITHROMYCIN IV 500 MG in D5W 250 ML IV SCH (08:43)
[2018-03-27] MEDS: ENOXAPARIN 40 MG/0.4 ML SYR SC SCH (08:43)
[2018-03-27] MEDS: CLOPIDOGREL BISULFATE 75 MG TAB PO SCH (08:44)
[2018-03-27] MEDS: guaiFENesin 600 MG TAB.ER PO SCH ×2 (08:45→21:18)
[2018-03-27] MEDS: CYANOCOBALAMIN PO SCH ×2 (08:45→21:18)
[2018-03-27] MEDS: VIT B6 PO SCH ×2 (08:45→21:18)
[2018-03-27] MEDS: RANOLAZINE 500 MG TAB.ER PO SCH ×2 (08:45→17:06)
[2018-03-27] MEDS: ESCITALOPRAM OXALATE 10 MG TAB PO SCH (08:45)
[2018-03-27] MEDS: FOLIC AC PO SCH ×2 (08:45→21:18)
[2018-03-27] MEDS: Fenofibrate,Micronized [Fenofibrate] 200 MG PO SCH (08:46)
[2018-03-27] MEDS: BUDESONIDE/FORMOTEROL 80/4.5 60 PUFFS/MDI IH SCH ×2 (09:30→20:44)
--- NOTE | 2018-03-27 09:33 | GHP ---
[f rep st] HISTORY AND PHYSICAL DATE OF ADMISSION: 03/25/2018 CHIEF COMPLAINT: Admission for pneumonia, shortness of breath. The patient with known left bundle b ranch block, coronary artery disease, and aortic stenosis. HISTORY OF PRESENT ILLNESS: This is an 83-year-old female who is followed in our office. She was la st seen last month in our office. She has known cbwq-[id number]-mttyovme aortic stenosis. An echocardiogram during this hospitalization showed moderate aortic stenosis. She has a chronic left bundle branch b lock and on echocardiogram this time showed changes with left bundle branch block. No clear-cut isch emic wall motion abnormalities. She has had known coronary artery disease in 2014, stenting to her L AD and diagonal vessels. She was admitted recently for shortness of breath with fever, chills, and f atigue, and an abnormal venous lactate. She is on oxygen dependent COPD. Her troponins have been 0. 35 on 2 occasions during hospitalization. Her EKG shows left bundle branch block, which is chronic a nd stable. During hospitalization, she has felt better with antibiotic treatment. She has been on c hronic stable medications. She denies any chest pain or other issues. In speaking to her, she has h ad no symptoms consistent with her prior CAD. She is actually improved at this time. I talked about our options. At this point, I do not feel she needs any further cardiac testing now. She is being treated and for pneumonia and improving. She will continue activity as tolerated during the hospital ization. If things change, further cardiac testing can be done. I would like for her, upon discharg e, to be seen in our office for a Lexiscan stress test. The last one done was in 2017. PAST HISTORY: 1. Coronary artery disease, as noted above. 2. History of hypertension on medications. 3. Oxygen-dependent COPD. 4. History of diastolic heart failure. SOCIAL HISTORY: She lives in [facility] at this time. She is compliant with her medications. FAMILY HISTORY: Noncontributory. REVIEW OF SYSTEMS: A 10-point review of system is negative except for her symptoms as outlined in th e HPI. EXAM: VITAL SIGNS: Today, blood pressure is 159/78. She is in sinus rhythm with left bundle branch block. She is afebrile. GENERAL: She is an elderly female, seen sitting, alert and oriented witho ut any acute cardiac issues or complaints at this time. MOUTH: Oropharynx is moist. LUNGS: Clear. CARDIOVASCULAR: Regular rate and rhythm with a systolic murmur. No JVP was appreciated. No edema . LUNGS: Clear to auscultation. No wheezing. ABDOMEN: Soft with normoactive bowel sounds. ASSESSMENT: 1. Shortness of breath. Suspect this is a pulmonary etiology. Patient had fevers, chills, night sw eats, and has improved with antibiotics. Continue treatment per hospitalist. 2. History of moderate aortic stenosis. Echocardiogram is stable. She does have a known left bundl e branch block, and no clear-cut ischemic wall motion abnormalities. She will follow up as an outpat ient with this. 3. History of coronary artery disease. Patient has flat indeterminate troponins, I suspect are more of a demand issue and not an acute coronary syndrome issue at this time. The patient has had multip le exercise stress tests in our office. I would recommend a repeat Lexiscan in our office to review, especially given the fact that she has a left bundle branch block. Patient will continue to be acti ve in the halls. If the situation was to change, further considerations for coronary angiogram could be undertaken. However, at this time I do not think it is necessary. 4. Oxygen-dependent chronic obstructive pulmonary disease. The patient's questions were answered. Further care depending on her clinical course. No medication changes. /[id number]/MODL
--- NOTE | 2018-03-27 10:42 | HOSPPROG ---
Hospitalist Progress Note Assessment/Plan: 83-year-old admitted with fever malaise and cough. Evidence of bibasilar pneumonia on chest x-ray. Additionally presented with nausea and diarrhea which have since improved. # community-acquired pneumonia currently on ceftriaxone and azithromycin, slight improvement over the course for hospitalization. Her blood pressure is stable white count is down a little and her cough is better. * DC azithromycin due to possible interaction with the escitalopram * Add doxycycline * Follow clinically # reactive airways disease, followed by Dr. Dima Springer. Has had history of bronchitis exacerbating her pulmonary symptoms * Will add prednisone given her ongoing cough and shortness of breath. # coronary artery disease status post stent, are reviewed case with Dr. Zhu. Elevated troponin likely secondary to demand ischemia * Follow-up with Cardiology as outpatient for further stress testing. # aortic stenosis, moderate. Slightly worse from several years ago. * Recommend annual echocardiograms # dyslipidemia on fenofibrate # hypertension: Systolic blood pressures are elevated will resume her usual medications # insomnia, patient with chronic back pain will resume her tramadol and add her sleeping pill while she is here in the hospital # chronic low back pain, acute exacerbation likely due to sleeping in a new bed. Will continue physical therapy while she is here # proph: lmwh Subjective: Patient new to hi and chart reviewed, had a poor night sleep last night complaining of more back pain than usual. She does take Librium as needed at home for sleep as well. She has does not have that ordered here. Objective: Vital Signs Temp Pulse Resp BP Pulse Ox 36.9 C 90 24 H 159/78 H 94 03/27/18 07:37 03/27/18 07:37 03/27/18 07:37 03/27/18 07:37 03/27/18 07:37 Microbiology 03/25/18 23:00 Gastrointestinal Tract Panel (PCR) - Final Stool No Organism Detected 03/25/18 21:54 Respiratory Panel (PCR) - Final Nasal, Sinus - [place] Viral Transport No Organism Detected Laboratory Results 03/26/18 03:50 03/26/18 03:50 03/26/18 03/27/18 03/28/18 05:59 05:59 05:59 Intake Total 255 3355 550 Output Total 600 1700 400 Balance -345 1655 150 PT 14.3 SEC (12.0-15.0) 03/25/18 18:26 INR 1.09 (0.83-1.16) 03/25/18 18:26 - Physical Exam Constitutional: uncomfortable Eyes: PERRL, EOMI Ears, Nose, Mouth, Throat: moist mucous membranes, hearing normal Cardiovascular: regular rate and rhythym, systolic murmur Respiratory: no respiratory distress, reduced air movement, inspiratory crackles (B[place]) Gastrointestinal: normoactive bowel sounds, soft, non-tender abdomen Genitourinary: no bladder fullness Skin: warm, normal color Musculoskeletal: generalized weakness Neurologic: AAOx3, No facial droop Psychiatric: interacting appropriately, not anxious ICD10 Worksheet Patient Problems: Problems Problem Status Onset Severe sepsis Acute Pneumonia Acute New onset left bundle branch block (LBBB) Acute Aortic stenosis Acute chronic disease mgmt/transitional care Acute Primary localized osteoarthrosis, lower leg Chronic Chest pain Acute Hypertension Acute Unstable angina Acute
[2018-03-27] MEDS ORDERED: ALBUTEROL 60 PUFFS/8 GM MDI IH PRN (10:43)
[2018-03-27] MEDS ORDERED: BISACODYL 10 MG SUPP PR PRN (10:43)
[2018-03-27] MEDS: predniSONE 20 MG TAB PO SCH (13:46)
--- NOTE | 2018-03-27 14:32 | ASMTCMCOM ---
CM Note CM Note Notes: [facility] Care Tye Director Debo Godinze [phone] will need to be called on discharged to come out to [facility] pt b/4 returning to [facility]. Date Signed: 03/27/2018 02:32 PM Electronically Signed By:Shyann Walker LCSW
[2018-03-27] MEDS: ACETAMINOPHEN 325 MG TAB PO SCH ×2 (15:32→21:17)
[2018-03-27] MEDS: ONDANSETRON DISINTEGRATING 4 MG TAB PO PRN (15:35)
[2018-03-27] MEDS: LOSARTAN POTASSIUM 50 MG TAB PO SCH (21:17)
[2018-03-27] MEDS: ATORVASTATIN CALCIUM 40 MG TAB PO SCH (21:17)
[2018-03-27] MEDS: DOXYCYCLINE HYCLATE 100 MG CAP/TAB PO SCH (21:18)
[2018-03-27] MEDS: METOPROLOL SUCCINATE XR 50 MG TAB PO SCH (21:30)
[2018-03-28] MEDS: MELATONIN 3 MG TAB PO PRN (01:54)
[2018-03-28] MEDS: BUDESONIDE/FORMOTEROL 80/4.5 60 PUFFS/MDI IH SCH ×2 (08:38→21:11)
[2018-03-28] MEDS ORDERED: FUROSEMIDE 40 MG TAB PO SCH (09:00)
[2018-03-28] MEDS: ACETAMINOPHEN 325 MG TAB PO SCH ×3 (09:01→21:33)
[2018-03-28] MEDS: CLOPIDOGREL BISULFATE 75 MG TAB PO SCH (09:01)
[2018-03-28] MEDS: FENOFIBRATE 145 MG TAB PO SCH (09:01)
[2018-03-28] MEDS: ENOXAPARIN 40 MG/0.4 ML SYR SC SCH (09:01)
[2018-03-28] MEDS: predniSONE 20 MG TAB PO SCH (09:01)
[2018-03-28] MEDS: DOXYCYCLINE HYCLATE 100 MG CAP/TAB PO SCH ×2 (09:02→21:34)
[2018-03-28] MEDS: RANOLAZINE 500 MG TAB.ER PO SCH ×2 (09:02→18:05)
[2018-03-28] MEDS: guaiFENesin 600 MG TAB.ER PO SCH ×2 (09:02→21:35)
[2018-03-28] MEDS: ESCITALOPRAM OXALATE 10 MG TAB PO SCH (09:02)
[2018-03-28] MEDS: PANTOPRAZOLE SODIUM 40 MG TAB PO SCH ×2 (09:02→18:05)
[2018-03-28] MEDS: CYANOCOBALAMIN PO SCH ×2 (09:03→21:41)
[2018-03-28] MEDS: FOLIC AC PO SCH ×2 (09:03→21:41)
[2018-03-28] MEDS: VIT B6 PO SCH ×2 (09:03→21:41)
--- NOTE | 2018-03-28 10:14 | HOSPPROG ---
Hospitalist Progress Note Assessment/Plan: 83-year-old admitted with fever malaise and cough. Evidence of bibasilar pneumonia on chest x-ray. Additionally presented with nausea and diarrhea which have since improved. # community-acquired pneumonia currently on ceftriaxone and azithromycin, slight improvement over the course for hospitalization. Her blood pressure is stable white count is down a little and her cough is better. * DC azithromycin due to possible interaction with the escitalopram * Add doxycycline * Follow clinically # reactive airways disease, followed by Dr. Dima Springer. Has had history of bronchitis exacerbating her pulmonary symptoms * Will add prednisone given her ongoing cough and shortness of breath. # mild fluid overload. Patient more short of breath today. * Follow daily weights * Check BMP in the a.m. * Add IV Lasix today and follow-up symptoms # obstructive sleep apnea. Patient typically on CPAP at home but has not been on it here in the hospital and has had poor sleep * She is trying to get her supplies from home so she can use her CPAP here in the hospital # coronary artery disease status post stent, are reviewed case with Dr. Zhu. Elevated troponin likely secondary to demand ischemia * Follow-up with Cardiology as outpatient for further stress testing. # hx of hyperthyroid on PTU remotely, recheck thyroid tests. # aortic stenosis, moderate. Slightly worse from several years ago. * Recommend annual echocardiograms # dyslipidemia on fenofibrate # hypertension: Systolic blood pressures are elevated will resume her usual medications # insomnia, patient with chronic back pain will resume her tramadol and add her sleeping pill while she is here in the hospital # chronic low back pain, acute exacerbation likely due to sleeping in a new bed. Will continue physical therapy while she is here # proph: lmwh Subjective: Feels more short of breath today. Objective: Vital Signs Temp Pulse Resp BP Pulse Ox 36.6 C 82 18 164/68 H 93 03/28/18 09:17 03/28/18 09:17 03/28/18 09:17 03/28/18 09:17 03/28/18 09:17 Laboratory Results 03/26/18 03:50 03/26/18 03:50 03/27/18 03/28/18 03/29/18 05:59 05:59 05:59 Intake Total 3355 2270 Output Total 1700 2900 200 Balance 1655 -630 -200 PT 14.3 SEC (12.0-15.0) 03/25/18 18:26 INR 1.09 (0.83-1.16) 03/25/18 18:26 - Physical Exam Constitutional: obese, uncomfortable Eyes: PERRL Ears, Nose, Mouth, Throat: moist mucous membranes Cardiovascular: regular rate and rhythym, systolic murmur Respiratory: reduced air movement, inspiratory crackles, respiratory distress Gastrointestinal: normoactive bowel sounds, No tenderness Genitourinary: no bladder fullness Skin: normal color Neurologic: AAOx3 Psychiatric: interacting appropriately, not anxious ICD10 Worksheet Patient Problems: Problems Problem Status Onset Severe sepsis Acute Pneumonia Acute New onset left bundle branch block (LBBB) Acute Aortic stenosis Acute chronic disease mgmt/transitional care Acute Primary localized osteoarthrosis, lower leg Chronic Chest pain Acute Hypertension Acute Unstable angina Acute
--- NOTE | 2018-03-28 10:27 | PDCARPN ---
Cardiology Progress Note Chief Complaint: SOB Assessment/Plan: Assessment: Jimenez is a 83 y/o F with a history of CAD s/p stenting to the chronic diastolic CHF, LBBB, LAD/D in 2014, (progressed from mild-mod to now mod), COPD on O2, and LBBB. She was admitted with pneumonia and started on abx with a improvement in her symptoms. She continues to have coughing fits. She is now complaining of SOB and mild intermittant chest pressure. Her discomfort improved with lasix and nebulizer treatment. Plan: 1. Pneumonia- per IM 2. Diastolic CHF- diuretics have been on hold but she is now mildly volume overloaded. IV Lasix ordered this AM. Check BNP and BMP in the AM. 3. CAD with minimally elevated trop related to demand ischemia. Continue Plavix , Metoprolol, and Ranexa. Repeat trop and EKG today. She is scheduled for a outpatient nuc in 1-2 weeks. 4. Moderate - mildly progressed 5. HTN- well controlled. 03/28/18 12:38 Subjective: She is complaining of cough fits followed by SOB. SOB is worse then yesterday. Also having mild chest pressure and abdominal fullness. Objective: Vital Signs (8 Hrs) Temp Pulse Resp BP Pulse Ox 03/28/18 09:17 36.6 C 82 18 164/68 H 93 03/28/18 08:39 83 19 92 03/28/18 07:37 150/80 H 03/28/18 04:00 36.8 C 91 19 187/90 H 91 L Intake/Output (24 Hrs) 03/27/18 03/28/18 03/29/18 05:59 05:59 05:59 Intake Total 3355 2270 Output Total 1700 2900 200 Balance 1655 -630 -200 Intake: Oral (ml) 400 2270 IV Intake (ml) 2600 IV Infused (ml) 355 Azithromycin IV 500 mg In 255 D5w 250 ml @ 255 mls/hr IV DAILY GAVIN Rx#: [id number] cefTRIAXone 1 GM/DEXTROSE 100 50 ml @ 100 mls/hr IV DAILY GAVIN Rx#:[id number] Output: Urine (ml) 1700 2900 200 Toilet 1700 2900 200 Other: Weight 90.3 kg Number of Voids Toilet 1 1 1 Number of Stools Toilet 1 1 Result Diagrams: 03/26/18 03:50 03/28/18 10:55 Cardiac Labs: Cardiac Lab Results (72 Hrs) 03/26/18 13:59 Troponin I 0.035 H - Physical Exam Constitutional: WDWN, no apparent distress Cardiovascular: regular rate and rhythm, systolic murmur Respiratory: inspiratory crackles (mild) Gastrointestinal: other (mildely distended) Skin: no edema Neurologic: AAOx3 ICD10 Worksheet Patient Problems: Problems Problem Status Onset Aortic stenosis Acute New onset left bundle branch block (LBBB) Acute Pneumonia Acute Severe sepsis Acute Chest pain Acute Hypertension Acute Unstable angina Acute chronic disease mgmt/transitional care Acute Primary localized osteoarthrosis, lower leg Chronic
[2018-03-28] MEDS: IPRATROPIUM/ALBUTEROL 3 ML DEYVIAL IH SCH ×3 (11:10→21:11)
[2018-03-28] MEDS ORDERED: FUROSEMIDE 40 MG/4 ML VIAL IVP ONE (12:30)
[2018-03-28] MEDS: POTASSIUM CL 20 MEQ TAB PO SCH ×2 (13:07→21:35)
--- NOTE | 2018-03-28 13:34 | CPEKG ---
Heart Rate: 81 RR Interval: 741 P-R Interval: 176 QRSD Interval: 142 QT Interval: 452 QTC Interval: 525 P Hudson: 78 QRS Hudson: -8 T Wave Hudson: 101 EKG Severity - ABNORMAL ECG - EKG Impression: SINUS RHYTHM EKG Impression: LEFT BUNDLE BRANCH BLOCK Electronically Signed By: Scott Holman 29-Mar-2018 11:14:10
[2018-03-28] MEDS: FUROSEMIDE 40 MG/4 ML VIAL IVP SCH (16:33)
[2018-03-28] MEDS: LOSARTAN POTASSIUM 50 MG TAB PO SCH (21:31)
[2018-03-28] MEDS: METOPROLOL SUCCINATE XR 50 MG TAB PO SCH (21:32)
[2018-03-28] MEDS: ATORVASTATIN CALCIUM 40 MG TAB PO SCH (21:33)
[2018-03-29 04:55] LABS: PLATELET COUNT 352 10^3/uL (150-400)
[2018-03-29] MEDS: IPRATROPIUM/ALBUTEROL 3 ML DEYVIAL IH SCH ×4 (05:37→20:57)
[2018-03-29] MEDS: BUDESONIDE/FORMOTEROL 80/4.5 60 PUFFS/MDI IH SCH ×2 (09:44→20:55)
[2018-03-29] MEDS: ACETAMINOPHEN 325 MG TAB PO SCH ×4 (09:50→21:33)
[2018-03-29] MEDS: POTASSIUM CL 20 MEQ TAB PO SCH ×2 (09:50→21:23)
[2018-03-29] MEDS: CLOPIDOGREL BISULFATE 75 MG TAB PO SCH (09:51)
[2018-03-29] MEDS: guaiFENesin 600 MG TAB.ER PO SCH ×2 (09:52→21:22)
[2018-03-29] MEDS: PANTOPRAZOLE SODIUM 40 MG TAB PO SCH ×2 (09:52→18:00)
[2018-03-29] MEDS: FENOFIBRATE 145 MG TAB PO SCH (09:52)
[2018-03-29] MEDS: ESCITALOPRAM OXALATE 10 MG TAB PO SCH (09:53)
[2018-03-29] MEDS: DOXYCYCLINE HYCLATE 100 MG CAP/TAB PO SCH ×2 (09:55→21:22)
[2018-03-29] MEDS: predniSONE 20 MG TAB PO SCH (09:55)
[2018-03-29] MEDS: FUROSEMIDE 40 MG/4 ML VIAL IVP SCH ×2 (09:56→16:27)
[2018-03-29] MEDS: ENOXAPARIN 40 MG/0.4 ML SYR SC SCH (09:56)
[2018-03-29] MEDS: CYANOCOBALAMIN PO SCH ×2 (10:00→21:35)
[2018-03-29] MEDS: VIT B6 PO SCH ×2 (10:00→21:35)
[2018-03-29] MEDS: FOLIC AC PO SCH ×2 (10:00→21:35)
[2018-03-29] MEDS: RANOLAZINE 500 MG TAB.ER PO SCH ×2 (11:01→17:59)
[2018-03-29] MEDS ORDERED: LACTULOSE 20 GM/30 ML UDCUP PO PRN (11:48)
[2018-03-29] MEDS ORDERED: BISACODYL 10 MG SUPP PR PRN (11:48)
[2018-03-29] MEDS ORDERED: MAGNESIUM HYDROXIDE 30 ML UDCUP PO PRN (11:48)
[2018-03-29] MEDS ORDERED: POLYETHYLENE GLYCOL 3350 17 GM PKT PO PRN (11:48)
--- NOTE | 2018-03-29 11:54 | HOSPPROG ---
Hospitalist Progress Note Assessment/Plan: 83-year-old admitted with fever malaise and cough. Evidence of bibasilar pneumonia on chest x-ray. Additionally presented with nausea and diarrhea which have since improved. # community-acquired pneumonia presenting with severe sepsis which has resolved. She also has acute hypoxic respiratory failure with increase crawford on her baseline oxygen. currently on ceftriaxone and azithromycin, slight improvement over the course for hospitalization. Her blood pressure is stable white count is down a little and her cough is better. * doxycycline and ceftriaxone. # acute rad exacerbation, followed by Dr. Dima Springer. Has had history of bronchitis exacerbating her pulmonary symptoms * Will add prednisone given her ongoing cough and shortness of breath. * duonebs # mild fluid overload. Patient more short of breath today. * Follow daily weights * Check BMP in the a.m. * continue IV lasix, decrease to daily dose and follow up cxr in am. # obstructive sleep apnea. Patient typically on CPAP at home but has not been on it here in the hospital and has had poor sleep * She is trying to get her supplies from home so she can use her CPAP here in the hospital # coronary artery disease status post stent, are reviewed case with Dr. Zhu. Elevated troponin likely secondary to demand ischemia * Follow-up with Cardiology as outpatient for further stress testing. # hx of hyperthyroid on PTU remotely, recheck thyroid tests. # aortic stenosis, moderate. Slightly worse from several years ago. * Recommend annual echocardiograms # dyslipidemia on fenofibrate # hypertension: Systolic blood pressures are elevated will resume her usual medications # insomnia, patient with chronic back pain will resume her tramadol and add her sleeping pill while she is here in the hospital # chronic low back pain, acute exacerbation likely due to sleeping in a new bed. Will continue physical therapy while she is here # proph: lmwh Subjective: feeling a bit better today after diuresis. Objective: Vital Signs Temp Pulse Resp BP Pulse Ox 36.8 C 79 14 135/67 H 91 L 03/29/18 11:21 03/29/18 11:21 03/29/18 11:21 03/29/18 11:21 03/29/18 11:21 Laboratory Results 03/29/18 03:55 03/29/18 03:55 03/28/18 03/29/18 03/30/18 05:59 05:59 05:59 Intake Total 2270 1350 700 Output Total 2900 900 Balance -630 450 700 PT 14.3 SEC (12.0-15.0) 03/25/18 18:26 INR 1.09 (0.83-1.16) 03/25/18 18:26 - Physical Exam Constitutional: chronically ill appearing, obese Eyes: PERRL Ears, Nose, Mouth, Throat: moist mucous membranes, hearing normal Cardiovascular: regular rate and rhythym, systolic murmur, edema Respiratory: expiratory wheeze, inspiratory crackles, respiratory distress Gastrointestinal: soft, non-tender abdomen Skin: warm Neurologic: AAOx3 Psychiatric: interacting appropriately ICD10 Worksheet Patient Problems: Problems Problem Status Onset Severe sepsis Acute Pneumonia Acute New onset left bundle branch block (LBBB) Acute Aortic stenosis Acute chronic disease mgmt/transitional care Acute Primary localized osteoarthrosis, lower leg Chronic Chest pain Acute Hypertension Acute Unstable angina Acute
--- NOTE | 2018-03-29 13:50 | PDCARPN ---
Cardiology Progress Note Chief Complaint: SOB Assessment/Plan: Assessment: Jimenez is a 83 y/o F with a history of CAD s/p stenting to the LAD/D in 2014, chronic diastolic CHF, LBBB, (progressed from mild-mod to now mod), and COPD on O2. She was admitted with pneumonia and started on abx with a initial improvement in her symptoms. Yesterday she complained of SOB and mild intermittant chest pressure. Her Lasix had been on hold and therefore Lasix was resumed and her SOB has improved but is still not back to baseline. Her CP resolved. Plan: 1. Pneumonia- per IM 2. Diastolic CHF- diuretics have been on hold but she is now mildly volume overloaded. IV Lasix resumed and she is diuresing. Her SOB has improved. Her BNP is elevated above her baseline at 3,000. 3. CAD with minimally elevated trop related to demand ischemia. Continue Plavix , Metoprolol, and Ranexa. She is currently CP fee. Trop yesterday was stable and her EKG is unchanged. She is scheduled for a outpatient nuc in 1-2 weeks. 4. Moderate - mildly progressed 5. HTN- She is intermittantly hypertensive but she is on Prednisone. Continue current regimen. 03/29/18 13:51 Subjective: She is complaining of SOB but it has improved. She denies any further chest discomfort. Neb treatments have improved her symptoms. Reviewed/Discussed With: hospitalist Objective: Vital Signs (8 Hrs) Temp Pulse Resp BP Pulse Ox 03/29/18 11:21 36.8 C 79 14 135/67 H 91 L 03/29/18 09:59 82 22 H 92 03/29/18 07:14 36.9 C 75 14 156/81 H 92 03/29/18 05:38 16 92 Intake/Output (24 Hrs) 03/28/18 03/29/18 03/30/18 05:59 05:59 05:59 Intake Total 2270 1350 700 Output Total 2900 900 Balance -630 450 700 Intake: Oral (ml) 2270 1350 700 Output: Urine (ml) 2900 900 Toilet 2900 900 Other: Number of Voids Toilet 1 2 Number of Stools Toilet 1 Result Diagrams: 03/29/18 03:55 03/29/18 03:55 Cardiac Labs: Cardiac Lab Results (72 Hrs) 03/28/18 03/26/18 13:24 13:59 Troponin I 0.038 H 0.035 H Telemetry: NSR - Physical Exam Constitutional: healthy appearing Cardiovascular: regular rate and rhythm, systolic murmur Peripheral Pulses: 2+: dorsalis-pedis (R), dorsalis-pedis (L) Respiratory: inspiratory crackles Gastrointestinal: other (distended) Skin: no edema Neurologic: AAOx3 ICD10 Worksheet Patient Problems: Problems Problem Status Onset Aortic stenosis Acute New onset left bundle branch block (LBBB) Acute Pneumonia Acute Severe sepsis Acute Chest pain Acute Hypertension Acute Unstable angina Acute chronic disease mgmt/transitional care Acute Primary localized osteoarthrosis, lower leg Chronic
[2018-03-29] MEDS ORDERED: CANN-EASE 2 GM TUBE TP PRN (16:23)
[2018-03-29] MEDS: METOPROLOL SUCCINATE XR 50 MG TAB PO SCH (21:22)
[2018-03-29] MEDS: LOSARTAN POTASSIUM 50 MG TAB PO SCH (21:22)
[2018-03-29] MEDS: ATORVASTATIN CALCIUM 40 MG TAB PO SCH (21:22)
[2018-03-29] MEDS: SENNOSIDES/DOCUSATE SODIUM TAB PO SCH (21:26)
[2018-03-29] MEDS: traMADol 50 MG TAB PO PRN (21:32)
[2018-03-30] MEDS: IPRATROPIUM/ALBUTEROL 3 ML DEYVIAL IH SCH ×4 (06:00→21:51)
[2018-03-30] MEDS: ENOXAPARIN 40 MG/0.4 ML SYR SC SCH (08:59)
[2018-03-30] MEDS: DOXYCYCLINE HYCLATE 100 MG CAP/TAB PO SCH ×2 (08:59→21:35)
[2018-03-30] MEDS: SENNOSIDES/DOCUSATE SODIUM TAB PO SCH ×2 (08:59→21:34)
[2018-03-30] MEDS: FUROSEMIDE 40 MG/4 ML VIAL IVP SCH (08:59)
[2018-03-30] MEDS: predniSONE 20 MG TAB PO SCH (08:59)
[2018-03-30] MEDS: guaiFENesin 600 MG TAB.ER PO SCH ×2 (08:59→21:32)
[2018-03-30] MEDS: PANTOPRAZOLE SODIUM 40 MG TAB PO SCH ×2 (08:59→16:29)
[2018-03-30] MEDS: FENOFIBRATE 145 MG TAB PO SCH (09:00)
[2018-03-30] MEDS: POTASSIUM CL 20 MEQ TAB PO SCH ×2 (09:00→21:31)
[2018-03-30] MEDS: RANOLAZINE 500 MG TAB.ER PO SCH ×2 (09:00→16:29)
[2018-03-30] MEDS: ACETAMINOPHEN 325 MG TAB PO SCH ×3 (09:00→21:31)
[2018-03-30] MEDS: CLOPIDOGREL BISULFATE 75 MG TAB PO SCH (09:00)
[2018-03-30] MEDS: ESCITALOPRAM OXALATE 10 MG TAB PO SCH (09:00)
[2018-03-30] MEDS: CYANOCOBALAMIN PO SCH ×2 (09:01→21:35)
[2018-03-30] MEDS: FOLIC AC PO SCH ×2 (09:01→21:35)
[2018-03-30] MEDS: VIT B6 PO SCH ×2 (09:01→21:35)
[2018-03-30] MEDS: BUDESONIDE/FORMOTEROL 80/4.5 60 PUFFS/MDI IH SCH ×2 (11:06→21:50)
--- NOTE | 2018-03-30 15:27 | PDCARPN ---
Cardiology Progress Note Chief Complaint: SOB and chest tightness Assessment/Plan: Assessment: Jimenez is a 83 y/o F with a history of CAD s/p stenting to the LAD/D in 2014, chronic diastolic CHF, LBBB, (progressed from mild-mod to now mod), and COPD on O2. She was admitted with pneumonia and started on abx with a initial improvement in her symptoms. Yesterday she complained of SOB and mild intermittant chest pressure. Her Lasix had been on hold and therefore Lasix was resumed and her SOB has improved but is still not back to baseline. She is complaining of SOB and chest pressure last night which resolved with a neb treatment. Plan: 1. Pneumonia- per IM 2. Diastolic CHF- diuretics have been on hold but she is now mildly volume overloaded. IV Lasix resumed and she is diuresing. Her SOB has improved. Her BNP is elevated above her baseline at 3,000 but trending down. Continue Lasix IV x1 day. 3. CAD with minimally elevated trop related to demand ischemia. Continue Plavix , Metoprolol, and Ranexa. She is currently CP fee. Trop yesterday was stable and her EKG is unchanged. She is scheduled for a outpatient nuc in 1-2 weeks. I think her chest discomfort and SOB is related to her pulmonary disease and not CAD. 4. Moderate - mildly progressed 5. HTN- improved with afternoon. 03/30/18 15:24 Subjective: Chest pressure and SOB yesterday evening which improved with neb treatment Objective: Vital Signs (8 Hrs) Temp Pulse Resp BP Pulse Ox 03/30/18 11:57 36.7 C 81 18 127/56 H 89 L 03/30/18 11:06 69 18 98 03/30/18 08:23 36.7 C 76 13 173/93 H 96 Intake/Output (24 Hrs) 03/29/18 03/30/18 03/31/18 05:59 05:59 05:59 Intake Total 1350 1210 Output Total 900 Balance 450 1210 Intake: Oral (ml) 1350 1050 IV Intake (ml) 40 IV Infused (ml) 120 cefTRIAXone 1 GM/DEXTROSE 120 50 ml @ 100 mls/hr IV DAILY GAVIN Rx#:[id number] Output: Urine (ml) 900 Toilet 900 Other: Weight 88 kg Number of Voids Toilet 2 1 Number of Stools Toilet 1 Result Diagrams: 03/29/18 03:55 03/30/18 03:55 Cardiac Labs: Cardiac Lab Results (72 Hrs) 03/28/18 13:24 Troponin I 0.038 H - Physical Exam Constitutional: WDWN Cardiovascular: regular rate and rhythm, systolic murmur Respiratory: inspiratory crackles Skin: no edema Neurologic: AAOx3 ICD10 Worksheet Patient Problems: Problems Problem Status Onset Severe sepsis Acute Pneumonia Acute New onset left bundle branch block (LBBB) Acute Aortic stenosis Acute chronic disease mgmt/transitional care Acute Primary localized osteoarthrosis, lower leg Chronic Chest pain Acute Hypertension Acute Unstable angina Acute
--- NOTE | 2018-03-30 15:46 | ASMTCMCOM ---
CM Note CM Note Notes: Pts case discussed in morning rounds. CM met w/ pt for dispo planning. Therapies are recommending HC. Pt reports that she receives PT 2x a week and works out at the [facility]. Pt does not think she will need to go to [facility]. CM left a msg w/ Debo, director at [facility] to see if she will need to be evaluated before her d/c. Anticipate d/c day is Wednesday. CM to follow. Plan: Sanjana GAMEZ Date Signed: 03/30/2018 03:45 PM Electronically Signed By:EMIGDIO Cruz
--- NOTE | 2018-03-30 18:28 | HOSPPROG ---
Hospitalist Progress Note Assessment/Plan: Assessment/Plan: 83-year-old p/w severe sepsis, community acquired pneumonia, acute on chronic hypoxic resp failure, acute reactive airway exacerbation, acute diastolic CHF # community-acquired pneumonia. POA, evidenced by LLL infiltrate on CXR ( personally interpreted) w/ sepsis physiology -D#6/7 Abx -tx cough supportively # severe sepsis. POA, evidenced by autonomic dysregulation in setting of infxn w/ end-organ failure (lactic acidosis, acute resp failure, demand ischemia), resolved # acute on chronic hypoxic respiratory failure. evidenced by objective tachypnea, hypoxia on home supplemental o2, symptomatic shortness of breath and labored breathing, requiring uptitration of home to 6LPM, currently weaned to 4LPM # acute reactive airway exacerbation. evidenced by diffuse exp wheezes, followed by Dr. Dima Springer as outpatient -cont duonebs PRN, prednisone 5 day burst # acute diastolic CHF exacerbation. evidenced by pleural effusions on CXR ( personally interpreted), LVH on Echo, BNP 3000, 2/2 IVF received for resuscitation w/ severe sepsis -cont lasix 40mg IV, monitor I/O, increase to bid tomorrow if not net neg -f/u w/ Dr. Leon # obstructive sleep apnea. chronic, cont home device HS # coronary artery disease status post stent. chronic, with acute demand ischemia 2/2 severe sepsis -outpatient stress test, estevan nuc # hx of hyperthyroid on PTU remotely, recheck thyroid tests. # aortic stenosis, moderate. Slightly worse from several years ago. -rec annual Echo # dyslipidemia on fenofibrate # hypertension: Systolic blood pressures are elevated will resume her usual medications # insomnia, patient with chronic back pain will resume her tramadol and add her sleeping pill while she is here in the hospital # chronic low back pain, acute exacerbation likely due to sleeping in a new bed. Will continue physical therapy while she is here # proph: lmwh diet. regular code. DNR dispo. ADD 03/31 to george Harrell High-level of medical complexity, high risk patient for worsening morbidity and/ or mortality secondary to the issues above. Subjective: patient reports ongoing polyuria Objective: Vital Signs Temp Pulse Resp BP Pulse Ox 36.6 C 82 20 154/91 H 94 03/30/18 16:00 03/30/18 17:45 03/30/18 17:45 03/30/18 16:00 03/30/18 17:45 Laboratory Results 03/29/18 03:55 03/30/18 03:55 03/29/18 03/30/18 03/31/18 05:59 05:59 05:59 Intake Total 1350 1210 500 Output Total 900 2 Balance 450 1210 498 PT 14.3 SEC (12.0-15.0) 03/25/18 18:26 INR 1.09 (0.83-1.16) 03/25/18 18:26 - Physical Exam Constitutional: no apparent distress, not in pain, chronically ill appearing, No uncomfortable Cardiovascular: systolic murmur (II/ at RSB), edema (trace bilat LE), No irregularly irregular, No tachycardia Respiratory: reduced air movement (L base on insp), inspiratory crackles (bilat bases), No expiratory wheeze, No bronchial breath sounds, No respiratory distress Gastrointestinal: normoactive bowel sounds, soft, non-tender abdomen, no palpable masses Neurologic: AAOx3, sensation intact bilaterally, No weakness Psychiatric: interacting appropriately, not anxious, not encephalopathic, thought process linear ICD10 Worksheet Patient Problems: Problems Problem Status Onset Aortic stenosis Acute New onset left bundle branch block (LBBB) Acute Pneumonia Acute Severe sepsis Acute Chest pain Acute Hypertension Acute Unstable angina Acute chronic disease mgmt/transitional care Acute Primary localized osteoarthrosis, lower leg Chronic
[2018-03-30] MEDS: ATORVASTATIN CALCIUM 40 MG TAB PO SCH (21:33)
[2018-03-30] MEDS: METOPROLOL SUCCINATE XR 50 MG TAB PO SCH (21:33)
[2018-03-30] MEDS: LOSARTAN POTASSIUM 50 MG TAB PO SCH (21:34)
[2018-03-31] MEDS: IPRATROPIUM/ALBUTEROL 3 ML DEYVIAL IH SCH (05:18)
[2018-03-31] MEDS: POTASSIUM CL 20 MEQ TAB PO SCH (07:58)
[2018-03-31] MEDS ORDERED: IPRATROPIUM/ALBUTEROL 3 ML DEYVIAL IH PRN (09:11)
[2018-03-31] MEDS: ENOXAPARIN 40 MG/0.4 ML SYR SC SCH (09:15)
[2018-03-31] MEDS: guaiFENesin 600 MG TAB.ER PO SCH (09:15)
[2018-03-31] MEDS: ESCITALOPRAM OXALATE 10 MG TAB PO SCH (09:15)
[2018-03-31] MEDS ORDERED: FUROSEMIDE 40 MG/4 ML VIAL IVP SCH (09:15)
[2018-03-31] MEDS: PANTOPRAZOLE SODIUM 40 MG TAB PO SCH (09:16)
[2018-03-31] MEDS: ACETAMINOPHEN 325 MG TAB PO SCH ×2 (09:16→15:27)
[2018-03-31] MEDS: RANOLAZINE 500 MG TAB.ER PO SCH (09:16)
[2018-03-31] MEDS: FENOFIBRATE 145 MG TAB PO SCH (09:16)
[2018-03-31] MEDS: predniSONE 20 MG TAB PO SCH (09:17)
[2018-03-31] MEDS: CLOPIDOGREL BISULFATE 75 MG TAB PO SCH (09:17)
[2018-03-31] MEDS: DOXYCYCLINE HYCLATE 100 MG CAP/TAB PO SCH (09:17)
[2018-03-31] MEDS: VIT B6 PO SCH (09:18)
[2018-03-31] MEDS: CYANOCOBALAMIN PO SCH (09:18)
[2018-03-31] MEDS: FOLIC AC PO SCH (09:18)
[2018-03-31] MEDS: SENNOSIDES/DOCUSATE SODIUM TAB PO SCH (09:21)
[2018-03-31] MEDS: FUROSEMIDE 40 MG/4 ML VIAL IVP SCH (09:29)
[2018-03-31] MEDS: BUDESONIDE/FORMOTEROL 80/4.5 60 PUFFS/MDI IH SCH (09:34)
[2018-03-31 11:42] VITALS: BP 170/78
--- NOTE | 2018-03-31 13:38 | PDHOMEO2F ---
Home Oxygen Face to Face Home Orders: I certify that a physician or a nurse practitioner or physician's healthcare administrative assistant has had a [id number] encounter with this patient on the date of this order due to the diagnosis listed, which relates to the primary reason the patient requires home oxygen. Alternative treatments have been tried, or considered, and deemed ineffective. It is anticipated that supplemental oxygen will result in improvement with treatment. Home oxygen qualifying diagnosis: COPD Home oxygen secondary diagnosis: Chronic diastolic CHF SpO2 on room air (%): 89 Frequency of home oxygen needed: continuous Home oxygen liters per minute: 4 Home oxygen delivery device: nasal cannula Concentrator: Yes E-tanks for mobility and back up: Yes If ordering portable O2, is the patient mobile in the home?: Yes I certify that, based on these findings, the home oxygen is medically necessary for this patient for the following length of time. Length of time home oxygen needed: 99 years
--- NOTE | 2018-03-31 14:09 | PDIAF ---
- Diagnosis Diagnosis: Severe Sepsis 2/2 PNA, Reactive Airway/COPD exacerbation Code Status: Do Not Resuscitate - Medication Management Discharge Medications: Medications to Continue on Transfer Budesonide [Rhinocort Aqua] 2 sprays EACHNARE DAILY PRN 08/13/13 [Last Taken 08:00] Clopidogrel Bisulfate [Plavix (*)] 75 mg PO DAILY 08/13/13 [Last Taken 03/25/18] ESCITALOPRAM OXALATE [LEXAPRO] 20 mg PO DAILY 08/13/13 [Last Taken 03/25/18] Herbals/Supplements -Info Only 1 each PO DAILY 08/13/13 [Last Taken 03/25/18] Pantoprazole Sodium [Protonix 40mg (*)] 40 mg PO BIDMEAL 08/13/13 [Last Taken ] chlordiazePOXIDE [Librium 5 mg (*)] 5 mg PO SUMOTUWETHSA@21 08/13/13 [Last Taken 03/24/18] Bisacodyl [Dulcolax] 10 mg RC DAILY PRN #6 supp.rect 07/17/17 [Last Taken Unknown] Polyethylene Glycol 3350 [Miralax 17 gm (*)] 17 gm PO DAILY PRN #12 pkt [Last Taken 03/25/18] Atorvastatin Calcium [Lipitor 40 mg (*)] 40 mg PO HS 11/04/17 [Last Taken ] Cetirizine [ZyrTEC 10 mg (*)] 10 mg PO DAILY PRN 11/04/17 [Last Taken 10/31/17] Fenofibrate,Micronized [Fenofibrate] 200 mg PO DAILY 11/04/17 [Last Taken ] Lidocaine HCl [Astero] 30 ml TP QID PRN 11/04/17 [Last Taken 03/22/18] Nitroglycerin [Nitrostat 0.4 mg (*)] 0.4 mg SL Q5M PRN 11/04/17 [Last Taken Unknown] Sennosides/Docusate Sodium [SENEXON-S TABLET] 1 each PO DAILY 11/04/17 [Last Taken 03/25/18] traMADol [Ultram 50 mg (*)] 25 mg PO Q6H PRN 11/04/17 [Last Taken 10/28/17] Acetaminophen [Tylenol ES 500 mg (*)] 1,000 mg PO TID 03/25/18 [Last Taken 03/25 13:30] Albuterol [Proventil Inhaler HFA (*)] 2 puffs IH QID PRN 03/25/18 [Last Taken Unknown] Budesonide/Formoterol 80/4.5 [Symbicort 80-4.5 Mcg Inhaler] 2 puffs IH BID@03/25/18 [Last Taken 03/25/18] Cholecalciferol Vit D3 [Vitamin D3 (*)] 50,000 unit PO Q30D 03/25/18 [Last Taken 03/05/18] Cyanocobalamin/Folic AC/Vit B6 [FOLBEE TABLET] 1 each PO BID 03/25/18 [Last Taken 03/25/18 09:00] Furosemide [Lasix 40 MG (*)] 40 mg PO DAILY 03/25/18 [Last Taken 03/25/18] Losartan Potassium [Cozaar 50 mg (*)] 100 mg PO HS 03/25/18 [Last Taken 03/24/18 ] Metoprolol Succinate Xr [Toprol Xl 50 mg (*)] 100 mg PO HS 03/25/18 [Last Taken 03/24/18] Ondansetron HCl [Zofran] 4 mg PO Q6 PRN 03/25/18 [Last Taken Unknown] Ranolazine [Ranexa] 500 mg PO BIDMEAL 03/25/18 [Last Taken 03/25/18] Sennosides/Docusate Sodium [Senokot-S] 1 each PO BID PRN 03/25/18 [Last Taken ] amLODIPine BESYLATE [Norvasc 10 mg (*)] 5 mg PO BIDMEAL 03/25/18 [Last Taken 10/02] Ipratropium/Albuterol [Duoneb (*)] 3 ml IH Q6 PRN #40 deyvial 03/31/18 [Last Taken Unknown] [facility] Antibiotics: NA Discharge Medications: Refer to the Discharge Home Medication list for PRN reason. PICC Care - Routine: N/A - Orders Services needed: Home Care, Physical Therapy, Occupational Therapy Home Care Face to Face: I certify that this patient was under my care and that I had the required [id number] encounter meeting the encounter requirements on the discharge day. My findings support the fact that the patient is homebound as defined in Home Care Face to Face Continued: CMS Chapter 7 Medicare Benefits Manual 30.1.1 , The condition of the patient is such that there exists a normal inability to leave home and consequently, leaving home would require a considerable and taxing effort. Isolation Type: None Oxygen: 4LPM continuous Diet Recommendation: cardiac -low fat low salt Weigh Patient: weekly Long: Not applicable Activity/Weight Bearing Restrictions: as tolerated - Labs/Radiology BMP Date: 04/04/18 Imaging Orders: please schedule outpatient lexiscan nuclear med stress test in 2 weeks Call or Fax Lab and Imaging Results to: Dr. Hair and Dr. Leon - Follow Up Care Current Providers and Referrals: Dyna Hair MD [Primary Care Provider] - 3-5 days Franco Leon MD [Medical Doctor] - follow up in 2 weeks Dima Springer MD [Medical Doctor] - follow up in 1 week
--- NOTE | 2018-03-31 14:11 | PDCARPN ---
Cardiology Progress Note Chief Complaint: SOB Assessment/Plan: Assessment: Jimenez is a 83 y/o F with a history of CAD s/p stenting to the LAD/D in 2014, chronic diastolic CHF, LBBB, (progressed from mild-mod to now mod), and COPD on O2. She was admitted with pneumonia and started on abx with a initial improvement in her symptoms. Yesterday she complained of SOB and mild intermittant chest pressure. Her Lasix had been on hold and therefore Lasix was resumed and her SOB has improved but is still not back to baseline. She is complaining of SOB and chest pressure last night which resolved with a neb treatment. Plan: 1. Pneumonia- per IM 2. Diastolic CHF- secondary to IV saline in the setting of hypotension and sepsis. Currently euvolemic. D/c home on Lasix 40mg PO. 3. CAD with minimally elevated trop related to demand ischemia. Continue Plavix , Metoprolol, and Ranexa. She is currently CP fee. Trop yesterday was stable and her EKG is unchanged. She is scheduled for a outpatient nuc in 1-2 weeks. I think her chest discomfort and SOB is related to her pulmonary disease and not CAD. 4. Moderate - mildly progressed 5. HTN- improved with afternoon. Ok to d/c home from a cardiac standpoint. 03/31/18 14:12 Subjective: She denies any further chest tightness and her COOL is stable and improving. Objective: Vital Signs (8 Hrs) Temp Pulse Resp BP Pulse Ox 03/31/18 11:41 66 20 170/78 H 95 03/31/18 07:24 36.6 C 71 17 164/97 H 95 Intake/Output (24 Hrs) 03/30/18 03/31/18 04/01/18 05:59 05:59 05:59 Intake Total 1210 1200 Output Total 2 Balance 1210 1198 Intake: Oral (ml) 1050 1200 IV Intake (ml) 40 IV Infused (ml) 120 cefTRIAXone 1 GM/DEXTROSE 120 50 ml @ 100 mls/hr IV DAILY GAVIN Rx#:[id number] Output: Urine (ml) 2 Toilet 2 Other: Weight 88 kg 89.1 kg Number of Voids Toilet 1 Number of Stools Toilet 1 Result Diagrams: 03/31/18 03:55 03/31/18 03:55 - Physical Exam Constitutional: WDWN Ears, Nose, Mouth, Throat: moist mucous membranes Cardiovascular: regular rate and rhythm, systolic murmur Respiratory: clear to auscultate bilat Skin: no edema Neurologic: AAOx3 ICD10 Worksheet Patient Problems: Problems Problem Status Onset Aortic stenosis Acute New onset left bundle branch block (LBBB) Acute Pneumonia Acute Severe sepsis Acute Chest pain Acute Hypertension Acute Unstable angina Acute chronic disease mgmt/transitional care Acute Primary localized osteoarthrosis, lower leg Chronic
--- NOTE | 2018-03-31 17:13 | PDDCSUM ---
Discharge Summary Discharge Summary: DISCHARGE SUMMARY FOLLOW-UP ITEMS: 1. Up titrate antihypertensive medications as needed 2. Reassess outpatient pulmonary status DATE OF ADMISSION: 03/25/2018 DATE OF DISCHARGE: 03/31/2018 DISCHARGE DIAGNOSES: 1. Severe sepsis present on admission 2. Acute on chronic hypoxic respiratory failure 3. Community-acquired pneumonia present on admission 4. Acute COPD exacerbation 5. Acute diastolic congestive heart failure exacerbation 6. Chronic obstructive sleep apnea 7. Worsening moderate aortic stenosis 8. Acute metabolic acidosis 9. Chronic hypertension 10. Chronic coronary artery disease 11. Acute demand ischemia 12. Acute atelectasis CONSULTATIONS: Cardiology PROCEDURES / IMAGING: Echocardiogram demonstrating worsening, moderate aortic stenosis with mild left ventricular hypertrophy Abdominal CT demonstrating demonstrating no intra-abdominal pathology, by lateral pulmonary airspace disease with atelectasis CHIEF COMPLAINT: Acute fever chills shortness of breath SUBJECTIVE: Patient is feeling well at time discharge, her cough has significantly improved PHYSICAL EXAM ON DISCHARGE: Systolic blood pressure 160-170, heart rate 70-80, afebrile overnight, satting well on 4 L nasal cannula, alert awake oriented x3, lungs are clear on expiration bilaterally, there faint inspiratory crackles bilateral bases with some reduced air movement in the bilateral bases, heart rhythm is regular, 2/6 systolic murmur at the right sternal border, trace bilateral lower extremity edema LABS ON DISCHARGE: White blood cell count 26464, hemoglobin 11.1, creatinine 0.8, potassium 5 HOSPITAL COURSE BY PROBLEM: 1. Severe sepsis. Present on admission, evidenced by autonomic dysregulation in the setting of infection with end-organ failure notably lactic acidosis, acute respiratory failure, demand ischemia, in the setting of infection outlined below. She responded favorably to empiric IV antibiotics and fluid resuscitation and her multi-system organ failure has resolved. 2. Community-acquired pneumonia. Present on admission, evidenced by left lower lobe infiltrate on chest imaging with basilar consolidation noted on her CT. She was experiencing sepsis physiology and also had fever, tachycardia, tachypnea and she has responded favorably to 7 total days of antibiotics, namely ceftriaxone and doxycycline. Her cough has significantly improved. 3. Acute on chronic hypoxic respiratory failure. Evidenced by objective tachypnea, hypoxia on home supplemental oxygen, symptomatic shortness of breath , labored breathing, requiring up titration of oxygen to 6 liters/minute, with a baseline requirement of 3 liters/minute. Her failure was secondary to pneumonia and recovery was protracted secondary to acute diastolic CHF exacerbation. By the time discharge, she has been weaned down to near her home supplemental oxygen requirement is safe for discharge home. Despite advocating for the patient for home oxygen concentrator, her home oxygen company is unable to provide her with this modality, and insists that she does not qualify. 4. Acute COPD exacerbation. Evidenced by diffuse expiratory wheezes, most likely triggered by her pneumonia. Review of patient's record demonstrates that she does have a diagnosis of COPD and is followed by Dr. Dima Springer. She was treated with empiric steroids, scheduled duo nebs, and antitussives. Her reactive airways have completely resolved by time of discharge, and she is not require ongoing prednisone or scheduled nebs. She will receive duo nebs as needed as an outpatient, and her home oxygen company will supply her with a nebulizer device. 5. Acute diastolic congestive heart failure exacerbation. Evidenced by bilateral pleural effusions after receiving empiric IV fluids to stabilize her sepsis. Her echo demonstrated left ventricular hypertrophy, and her BNP was as high as 3000. She received IV diuretics after her sepsis had stabilized, and her Lasix was transition back to her home dosage of 40 mg daily by discharge. She will follow up with her primary import export agent, Dr. Franco Leon. 6. Chronic coronary artery disease and acute demand ischemia. Patient experienced acute demand ischemia with an elevated troponin level, provoked by severe sepsis in the setting of underlying coronary artery disease. She was seen in consultation by Cardiology, and they recommended outpatient Lexiscan nuclear stress test in approximately 2 weeks. This will be arranged by their office. She has continued on all of her her other home medications including Plavix, ranolazine. 7. Acute metabolic acidosis. Secondary to lactic acid secondary to sepsis, resolved with treatment. 8. Acute atelectasis. Secondary to pulmonary compression from pneumonia, received incentive spirometer. 9. Chronic hypertension. Patient continued to have elevated systolic readings despite receiving maximal doses amlodipine, losartan, metoprolol succinate, and she should have outpatient blood pressure follow-up by her primary care provider , potentially add additional agent. She is currently receiving daily dosing of Lasix, and this could be up titrated to 40 mg twice daily with close outpatient monitoring by primary care provider. 10. Aortic stenosis. Moderate, slightly worsening from previous echo, we recommend annual echo for this patient. DISCHARGE MEDICATIONS: Please see official discharge medication reconciliation sheet in chart , continue home medications with the addition of duo nebs q.6 hours as needed, continue all other home medications. DISCHARGE INSTRUCTIONS: Please follow up with her primary care provider early next week, have an outpatient nuclear stress in approximately 2 weeks and follow up with [facility] at that time, please schedule follow-up with Dr. Dima Springer early next week. TIME SPENT: Greater than 30 minutes were spent on direct patient care, as well as discharge planning and preparation.
--- NOTE | 2018-04-01 09:23 | ASDISCHSUM ---
Discharge Information Plan Status:Assisted Living Medically Cleared to Leave:03/31/2018 Discharge Date:03/31/2018 04:40 PM CM D/C Disposition: ADT D/C Disposition:Home Health Service Projected Discharge Date:03/31/2018 11:00 AM Transportation at D/C: Discharge Delay Reason: Follow-Up Date:03/31/2018 11:00 AM Discharge Slot: Final Diagnosis: Placement Information Referral Type:Assisted Living Residence Referral ID:[id number] Provider Name:[facility] Address 1:[address] Phone Number: Address 2: Fax Number: City:[place] Selection Factors: State:[place] Patient Contact Information Contact Name:SURJIT Relationship:Son Address:[phone] OFFICE PHONE City:[place] Alternate Phone: State/Zip Code:[place] [address] Email: Financial Information Financial Class:Medicare Primary Plan Desc:MEDICARE INPATIENT Primary Plan Number:[id number] Secondary Plan Desc:[facility] PPO [facility] [place] Secondary Plan Number:[id number] Assessment Information [facility] CM Progress Note CM Note CM Note Notes: 03/26/2018 Case Management Note Pt admitted for sepsis. Met w/pt to discuss dispo needs. Pt lives in the [facility]. She has an composite technician for 8 hours a day, assistance with her ADL's, and med management. Ramírez Hooks [phone], lives nearby and visits often. Faxed updates to [facility] and called. If pt d/c with IV abx [facility] will request pt be in the SNF rehab. Discussed w/pt. Case Management d/c poc: return to [facility]. Assisted Living vs SNF rehab to be determined. Case Management to follow. Date Signed: 03/26/2018 12:01 PM Electronically Signed By:Latosha Batista RN [facility] Progress Note CM Note CM Note Notes: [facility] Tye Director Darynuzma Herbert [phone] will need to be called on discharged to [facility] pt b/4 returning to [facility]. Date Signed: 03/27/2018 02:32 PM Electronically Signed By:Shyann Walker LCSW [facility] CM Progress Note CM Note CM Note Notes: Pts case discussed in morning rounds. CM met w/ pt for dispo planning. Therapies are recommending HC. Pt reports that she receives PT 2x a week and works out at the [facility] gym. Pt does not think she will need to go to [facility]. CM left a msg w/ Debo, director at [facility] to see if she will need to be evaluated before her d/c. Anticipate d/c day is Wednesday. CM to follow. Plan: [facility] GAMEZ Date Signed: 03/30/2018 03:45 PM Electronically Signed By:EMIGDIO Cruz Case Management Discharge Plan Note Case Management Discharge Discharge Order Complete? Answers: Yes Patient to Obtain Answers: via Family Medications Transportation Arranged Answers: Other Notes: [facility] will Pick (Date 03/31/2018 04:00 PM & Time) EMTALA Complete Answers: No Case Management Transport Answers: No Form Complete Faxed Final Orders Answers: Yes Agency/Facility Transfer Answers: Yes Report Printed & Faxed to Receiving Agency Family Notified Answers: No Discharge Comments Notes: Pts case discussed in tx rounds. CM spoke w/ Debo, director of [facility] and provided updates via fax, per her request. Therapies are recommending HC. Pt is already current w/ HC through [facility]. CM arranged transportation through [facility]. [facility] will bill [facility]. DC orders sent to Sanj[facility]. [facility] available for changes. Plan: [facility] Date Signed: 03/31/2018 02:30 PM Electronically Signed By:EMIGDIO Cruz Intervention Information Intervention Type:*IM-Signed Date of Service:03/31/2018 02:39 PM Patient Type:Inpatient Staff Member:Merced Bellamy Hours: Discipline: Severity: Comment:
== END 2018-03-31 16:40 | disposition home health service (06) | DRG 871 ==
LOC: EDUNIT# → F2W 20:25
PROVIDERS: ADMIT Hospitalist; ATTEND Internal Medicine
DX: A41.9 Sepsis, unspecified organism (principal); R65.20 Severe sepsis without septic shock; J18.9 Pneumonia, unspecified organism; J96.21 Acute and chronic respiratory failure with hypoxia; I50.33 Acute on chronic diastolic (congestive) heart failure; J44.1 Chronic obstructive pulmonary disease with (acute) exacerbation; J44.0 Chronic obstructive pulmonary disease with (acute) lower respiratory infection; G47.00 Insomnia, unspecified; G47.33 Obstructive sleep apnea (adult) (pediatric); I25.10 Atherosclerotic heart disease of native coronary artery without angina pectoris; E87.2 Acidosis; J98.11 Atelectasis; I10 Essential (primary) hypertension; I35.0 Nonrheumatic aortic (valve) stenosis; I44.7 Left bundle-branch block, unspecified; K21.9 Gastro-esophageal reflux disease without esophagitis; Z79.01 Long term (current) use of anticoagulants; Z95.5 Presence of coronary angioplasty implant and graft; Z99.81 Dependence on supplemental oxygen; Z66 Do not resuscitate
CPT/HCPCS: 97110-GP; 97116-GP; 97162-GP; 97165-GO; 97530-GO; 97530-GP; 97535-GO; G8978-GP-CJ; G8979-GP-CI; G8987-GO-CJ; G8988-GO-CI; J0456; J0696; J1650; J1940; J2405; J7512; J7613

== ENCOUNTER 2018-04-01 08:46 | Inpatient (IN) | payer OTHER ==
--- NOTE | 2018-04-01 09:03 | CPEKG ---
Heart Rate: 74 RR Interval: 811 P-R Interval: 168 QRSD Interval: 134 QT Interval: 456 QTC Interval: 506 P [place]: 48 QRS [place]: -34 T Wave [place]: 82 EKG Severity - ABNORMAL ECG - EKG Impression: SINUS RHYTHM EKG Impression: LEFT BUNDLE BRANCH BLOCK Electronically Signed By: Mina Seo 03-Apr-2018 11:37:16
--- NOTE | 2018-04-01 09:06 | EDPHY ---
H & P Time Seen by Provider: 04/01/18 08:55 HPI/ROS: Chief complaint. Chest pain HPI. 83-year-old female presents emergency department by EMS. It hurts was called initially as a cardiac alert and then because of her left bundle branch block the paramedics came emergent but backed off on calling cardiac alert. The patient has chest discomfort that started this morning. She describes as severe intense mid chest spasm. May well be precipitated by coughing. The patient was discharged yesterday after a 6 day admission for sepsis and pneumonia. She has chronic shortness of breath and O2 dependency. She was initially about 85% saturation on room air but increase to mid 90s with her usual 4 L of oxygen. Patient is still coughing. No fever. No abdominal pain. She has had similar chest pain previously and has known coronary artery disease with stents. Patient took 2 nitroglycerin of her own medication at home. She was given 324 mg of aspirin per EMS in route ROS Constitutional. no fever/chills, no weakness Eyes. no problems with vision ENT. no sore throat, no nasal drainage Cardiovascular. Chest pain Respiratory. Shortness of breath and cough Abdominal. no abdominal pain, no nausea/vomiting, no diarrhea . no problems urinating MS. no calf pain/swelling, no neck/back pain, no joint pain Skin. no rash Lymph. no swollen glands Neuro. no headache, no dizziness, no difficulty walking or with speech Past Medical/Surgical History: Past medical history coronary artery disease with stents. Left bundle branch block, hypertension, aortic stenosis, COPD on chronic oxygen, CHF Social History: Single, nonsmoker, no alcohol Smoking Status: Former smoker Physical Exam: General Appearance: Alert well-developed female moderate distress vital signs are stable Eyes: Pupils equal and round no pallor or injection. ENT, Mouth: Mucous membranes are moist. Respiratory: There are no retractions, lungs are clear to auscultation. Cardiovascular: Regular rate and rhythm. Gastrointestinal: Abdomen is soft and nontender, no masses, bowel sounds normal. Neurological: Awake and alert, sensory and motor exams grossly normal. Skin: Warm and dry, no rashes. Musculoskeletal: Neck is supple nontender. Extremities symmetrical, full range of motion. Psychiatric: Patient is oriented X 3, there is no agitation. Constitutional: Initial Vital Signs Temperature (C) 37 C 04/01/18 08:38 Heart Rate 75 04/01/18 08:38 Respiratory Rate 18 04/01/18 08:38 Blood Pressure 159/88 H 04/01/18 08:38 O2 Sat (%) 97 04/01/18 08:38 O2 Delivery Mode Nasal Cannula O2 (L/minute) 2 Allergies/Adverse Reactions: latex [Latex] Allergy (Intermediate, Verified 03/25/18 17:17) Other-Enter Comments Sulfa (Sulfonamide Antibiotics) Allergy (Mild, Verified 03/25/18 17:17) Other-Enter Comments zolpidem [From Ambien] Allergy (Verified 03/25/18 17:17) WALNUTS Allergy (Severe, Uncoded 03/25/18 17:17) Anaphylaxis dark greens Allergy (Mild, Uncoded 03/25/18 17:17) mucosal irritation CT CONTRAST Allergy (Uncoded 03/25/18 17:17) Home Medications: Medication Instructions Recorded Budesonide [Rhinocort Aqua] 2 sprays EACHNARE DAILY PRN 08/13/13 Clopidogrel Bisulfate [Plavix (*)] 75 mg PO DAILY 08/13/13 ESCITALOPRAM OXALATE [LEXAPRO] 20 mg PO DAILY 08/13/13 Herbals/Supplements -Info Only 1 each PO DAILY 08/13/13 Pantoprazole Sodium [Protonix 40mg 40 mg PO BIDMEAL 08/13/13 (*)] chlordiazePOXIDE [Librium 5 mg (*)] 5 mg PO SUMOTUWETHSA@21 08/13/13 Bisacodyl [Dulcolax] 10 mg RC DAILY PRN #6 supp.rect 07/17/17 Polyethylene Glycol 3350 [Miralax 17 gm PO DAILY PRN #12 pkt 07/17/17 17 gm (*)] Atorvastatin Calcium [Lipitor 40 40 mg PO HS 11/04/17 mg (*)] Cetirizine [ZyrTEC 10 mg (*)] 10 mg PO DAILY PRN 11/04/17 Fenofibrate,Micronized 200 mg PO DAILY 11/04/17 [Fenofibrate] Lidocaine HCl [Astero] 30 ml TP QID PRN 11/04/17 Nitroglycerin [Nitrostat 0.4 mg 0.4 mg SL Q5M PRN 11/04/17 (*)] Sennosides/Docusate Sodium 1 each PO DAILY 11/04/17 [SENEXON-S TABLET] traMADol [Ultram 50 mg (*)] 25 mg PO Q6H PRN 11/04/17 Acetaminophen [Tylenol ES 500 mg 1,000 mg PO TID 03/25/18 (*)] Albuterol [Proventil Inhaler HFA 2 puffs IH QID PRN 03/25/18 (*)] Budesonide/Formoterol 80/4.5 2 puffs IH BID@03/25/18 [Symbicort 80-4.5 Mcg Inhaler] Cholecalciferol Vit D3 [Vitamin D3 50,000 unit PO Q30D 03/25/18 (*)] Cyanocobalamin/Folic AC/Vit B6 1 each PO BID 03/25/18 [FOLBEE TABLET] Furosemide [Lasix 40 MG (*)] 40 mg PO DAILY 03/25/18 Losartan Potassium [Cozaar 50 mg 100 mg PO HS 03/25/18 (*)] Metoprolol Succinate Xr [Toprol Xl 100 mg PO HS 03/25/18 50 mg (*)] Ondansetron HCl [Zofran] 4 mg PO Q6 PRN 03/25/18 Ranolazine [Ranexa] 500 mg PO BIDMEAL 03/25/18 Sennosides/Docusate Sodium 1 each PO BID PRN 03/25/18 [Senokot-S] amLODIPine BESYLATE [Norvasc 10 mg 5 mg PO BIDMEAL 03/25/18 (*)] Ipratropium/Albuterol [Duoneb (*)] 3 ml IH Q6 PRN #40 deyvial 03/31/18 Medical Decision Making - Diagnostics EKG Interpretation: EKG interpreted by me shows normal sinus rhythm normal interval. Left axis deviation. Left bundle branch block. No significant ST elevation or depression. No arrhythmia. The rate is 74 Procedures: IV normal saline, monitor ED Course/Re-evaluation: I consulted and discussed the case with Dr. Leon for cardiology who sees the patient in the emergency department On re-evaluation 9:45 a.m. Patient is stable. She and I discussed imaging and lab results as well as EKG findings. We discussed treatment plan including recommendation for admission. She expresses understanding and agreement I consulted and discussed the case with Dr. Mar, hospitalist, who agrees to the admission Differential Diagnosis: The patient has chest discomfort and has known coronary artery disease. It was initially thought that she had acute MS but it appears that this is due to her chronic left bundle branch block. Currently chest x-ray shows resolving pneumonia. No evidence for sepsis currently. No evidence for acute coronary syndrome requiring emergent botany laboratory assistant. - Data Points Laboratory Results: Laboratory Results 04/01/18 09:03 04/01/18 09:03 04/01/18 04/01/18 04/01/18 09:03 09:03 09:03 WBC 17.36 10^3/uL H 10^3/uL (3.80-9.50) RBC 3.94 10^6/uL L 10^6/uL (4.18-5.33) Hgb 11.9 g/dL L g/dL (12.6-16.3) Hct 35.5 % L % (38.0-47.0) MCV 90.1 fL fL (81.5-99.8) MCH 30.2 pg pg (27.9-34.1) MCHC 33.5 g/dL g/dL (32.4-36.7) RDW 15.0 % % (11.5-15.2) Plt Count 535 10^3/uL H 10^3/uL (150-400) MPV 9.1 fL fL (8.7-11.7) Neut % (Auto) Not Reported Lymph % (Auto) Not Reported Barton % (Auto) Not Reported Eos % (Auto) Not Reported Baso % (Auto) Not Reported Nucleat RBC Rel Count Not Reported Absolute Neuts (auto) Not Reported Absolute Lymphs (auto) Not Reported Absolute Monos (auto) Not Reported Absolute Eos (auto) Not Reported Absolute Basos (auto) Not Reported Absolute Nucleated RBC Not Reported Immature Gran % Not Reported Seg Neutrophils % 61.0 % % Band Neutrophils % 1.0 % % Lymphocytes % 29.0 % % Monocytes % 7.0 % % Eosinophils % 0 % % Basophils % 2.0 % % Metamyelocytes % 0 % % Myelocytes % 0 % % Promyelocytes % 0 % % Blast Cells % 0 % % Immature Gran # Not Reported Absolute Seg Neuts 10.59 10^/uL H 10^/uL (1.70-6.50) Absolute Band Neuts 0.17 10^3/uL 10^3/uL (0.00-0.70) Absolute Lymphocytes 5.03 10^3/uL H 10^3/uL (1.00-3.00) Absolute Monocytes 1.22 10^3/uL H 10^3/uL (0.30-0.80) Absolute Eosinophils 0.00 10^3/uL L 10^3/uL (0.03-0.40) Absolute Basophils 0.35 10^3/uL H 10^3/uL (0.02-0.10) Absolute Metamyelocyte 0.00 10^3/mL 10^3/mL (0.00-0.00) Absolute Myelocytes 0.00 10^3/mL 10^3/mL (0.00-0.00) Absolute Promyelocytes 0.00 10^3/uL 10^3/uL (0.00-0.00) Absolute Plasma Cells 0.00 10^3/uL 10^3/uL (0.00-0.00) RBC/WBC/PLT Morphology NORMAL (NORMAL) Absolute Blast Cells 0.00 10^3/uL 10^3/uL (0.00-0.00) Plasma Cells % 0 % % Platelet Estimate INCREASED H (ADEQ) PT 13.4 SEC SEC (12.0-15.0) INR 1.00 (0.83-1.16) APTT 24.8 SEC SEC (23.0-38.0) Sodium 141 mEq/L mEq/L (135-145) Potassium 4.5 mEq/L mEq/L (3.3-5.0) Chloride 101 mEq/L mEq/L (97-110) Carbon Dioxide 23 mEq/l mEq/l (22-31) Anion Gap 17 mEq/L H mEq/L (8-16) BUN 30 mg/dL H mg/dL (7-23) Creatinine 0.9 mg/dL mg/dL (0.6-1.0) Estimated GFR 60 Glucose 161 mg/dL H mg/dL (70-100) Calcium 10.9 mg/dL H mg/dL (8.5-10.4) Phosphorus 3.9 mg/dL mg/dL (2.5-4.5) Troponin I 0.012 ng/mL ng/mL (0.000-0.034) NT-Pro-B Natriuret Pep 1080 pg/mL H pg/mL (0-450) Departure - Departure Disposition: [facility] Inpatient Acute Clinical Impression: Chest pain Qualifiers: Chest pain type: unspecified Qualified Code(s): R07.9 - Chest pain, unspecified Condition: Fair Referrals: Patient,NotPresent [Unknown] - As per Instructions
[2018-04-01 09:13] LABS: PLATELET COUNT 535 10^3/uL (150-400)
[2018-04-01 09:21] LABS: PROTIME(PATIENT) 13.4 SEC (12.0-15.0)
[2018-04-01] MEDS ORDERED: ACETAMINOPHEN 325 MG TAB PO PRN (10:08)
[2018-04-01] MEDS ORDERED: ONDANSETRON 4 MG/2 ML VIAL IVP PRN (10:08)
[2018-04-01] MEDS ORDERED: ONDANSETRON DISINTEGRATING 4 MG TAB PO PRN (10:08)
[2018-04-01] MEDS ORDERED: MAG HYDROX/AL HYDROX/SIMETH 30 ML UDCUP PO PRN (10:10)
[2018-04-01] MEDS ORDERED: CALCIUM CARBONATE 500 MG CHEWABLE TAB PO PRN (10:11)
--- NOTE | 2018-04-01 10:55 | ASMTLACE ---
MUSA Acuity / Level of Answers: No Care: Did the patient have an inpatient admission? Comorbidities - select Answers: Chronic pulmonary disease all that apply Congestive heart failure Coronary Artery Disease # of Emergency department Answers: 3-4 visits in the last 6 months Score: 9 Date Signed: 04/01/2018 10:54 AM Electronically Signed By:Nicci Royal RN
--- NOTE | 2018-04-01 11:57 | ECHO ---
[email or web address] [id number] Main: [phone] Fax: Transthoracic Echocardiogram Name: ALBAN OLVERA MR#: [id number] Study Date: 04/01/2018 Study Time: 09:11 AM Date of : 1935 Age: 83 year(s) Height: 157.5 cm (62 in.) Weight: 88 kg (194 lb.) BSA: 1.89 m2 Gender: Female Examination: Limited Echo Indication: Chest Pain, LBBB Image Quality: Contrast: Requested by: Franco Caldwell BP: 159 mmHg/88 mmHg Heart Rate: Rhythm: Indication: Chest Pain, LBBB Procedure Staff Director Group Sales: Theresa Boland SARAH Reading Physician: Franco Caldwell MD Requesting Provider: Measurements: Chambers Valvular Assessment AV/MV Valvular Assessment TV/PV Normal Normal Normal Name Value Range Name Value Range Name Value Range Ao Christy (MM): 2.7 cm (2.2 cm-3.7 AV Vmax: 2.32 m/s (1 m/s-1.7 cm) m/s) EF Range: 60-65 % AV maxP mmHg ( - ) AV meanP mmHg ( - ) Continued Measurements: Findings: Left Ventricle: Mild concentric LV hypertrophy. Normal global systolic LV function. The ejection fraction is estimated to be 60-65 %. (No Signature Object) Patient: ALBAN OLVERA Study Date: 04/01/2018 Page 1 of 1 09:11 AM [id number]
--- NOTE | 2018-04-01 12:01 | ASMTCMCOM ---
CM Note CM Note Notes: Pt presented to the ED via EMS from her Assisted Living at [facility] (Main: [phone]) w/chest pain. Pt discharged from [facility] yesterday (recent admission 03/25-03/31/18 due to sepsis, acute on chronic respiratory failure, PNA, COPD and CHF exacerbation, etc.). Pt admitted for cardiac workup and observation due to chest pain. Pt to get Lexiscan stress test and ECHO. Spoke with the Vacuum Drier Operator/Director at , [facility] (C:[phone],O:[phone]); notified of pt's admission. Debo confirmed pt receives non-skilled HC through their facility (has an aide and on-site RN available to assist w/ADLs & med mgmt) and pt has been receiving outpatient PT at their gym 2x/wk. It was also clarified that pt is NOT on their Memory Care Unit. Please call [facility] prior to discharge as they may need to come and reassess patient before accepting pt back. Anticipate pt will DC back to OR at [facility] w/continued HC PT (per chart review it looks as if pt was d/c'd yesterday to have skilled PT/OT but not sure if skilled HC was arranged...), and to follow up w/her PCP: Dyan Hair at [facility], Dr Leon at [facility], and Dr Dima Springer w/pulmonology. Pt states she spoke w/her son, Catarino Dillon ([phone], , or [phone]) and he plans to come to the hospital around 12-12:30pm. Pt's code status is DNR (verified recent MOST completed 2016) and lists Jesese as her MDPOA but MDPOA documentation cannot be located in pt's chart; consider requesting MDPOA paperwork. CM to follow. Date Signed: 04/01/2018 12:01 PM Electronically Signed By:Nicci Royal RN
[2018-04-01] MEDS ORDERED: REGADENOSON 0.4 MG/5 ML SYR IVP ONE (13:34)
--- NOTE | 2018-04-01 13:56 | PDGENHP ---
History and Physical - Chief Complaint Acute chest pain - History of Present Illness Primary retail pharmacist: Dr. Dima Springer Primary word processing machine operator: Dr. Franco Leon HPI: 83-year-old female presenting with acute chest pain characterized as achy tightness located in her substernal area with onset of symptoms at 8:00 a.m. On the morning of presentation. Duration was persistent thereafter, lasting approximately 1 hr and alleviated by aspirin. She attempted to alleviate her symptoms with 2 doses of sublingual nitroglycerin at home without effect. She reports that the character is very similar to chest discomfort she experienced last week during her hospitalization, which was alleviated with a DuoNeb treatment. She reports that she had otherwise been feeling well on the evening prior to presentation, and was discharged home safely yesterday. She ate what she considered a normal evening meal, not particularly spicy, and retired which she considers a normal hour. She was feeling well when she went to bed. She immediately began experiencing the aforementioned symptoms when she awoke this morning and she is unable to identify any provoking factor. History Information - Allergies/Home Medication List Allergies/Adverse Reactions: latex [Latex] Allergy (Intermediate, Verified 03/25/18 17:17) Other-Enter Comments Sulfa (Sulfonamide Antibiotics) Allergy (Mild, Verified 03/25/18 17:17) Other-Enter Comments zolpidem [From Ambien] Allergy (Verified 03/25/18 17:17) WALNUTS Allergy (Severe, Uncoded 03/25/18 17:17) Anaphylaxis dark greens Allergy (Mild, Uncoded 03/25/18 17:17) mucosal irritation CT CONTRAST Allergy (Uncoded 03/25/18 17:17) Home Medications: Budesonide [Rhinocort Aqua] 2 sprays EACHNARE DAILY PRN 08/13/13 [Last Taken 08:00] Clopidogrel Bisulfate [Plavix (*)] 75 mg PO DAILY 08/13/13 [Last Taken 03/31/18] ESCITALOPRAM OXALATE [LEXAPRO] 20 mg PO DAILY 08/13/13 [Last Taken 03/31/18] Herbals/Supplements -Info Only 1 each PO DAILY 08/13/13 [Last Taken 03/25/18] Pantoprazole Sodium [Protonix 40mg (*)] 40 mg PO BIDMEAL 08/13/13 [Last Taken ] chlordiazePOXIDE [Librium 5 mg (*)] 5 mg PO SUMOTUWETHSA@08/13/13 [Last Taken 03/31/18] Atorvastatin Calcium [Lipitor 40 mg (*)] 40 mg PO HS 11/04/17 [Last Taken ] Cetirizine [ZyrTEC 10 mg (*)] 10 mg PO DAILY PRN 11/04/17 [Last Taken 10/31/17] Fenofibrate,Micronized [Fenofibrate] 200 mg PO DAILY 11/04/17 [Last Taken ] Lidocaine HCl [Astero] 30 ml TP QID PRN 11/04/17 [Last Taken 03/22/18] Nitroglycerin [Nitrostat 0.4 mg (*)] 0.4 mg SL Q5M PRN 11/04/17 [Last Taken Unknown] Sennosides/Docusate Sodium [SENEXON-S TABLET] 1 each PO DAILY 11/04/17 [Last Taken 03/25/18] traMADol [Ultram 50 mg (*)] 25 mg PO Q6H PRN 11/04/17 [Last Taken 03/30/18] Acetaminophen [Tylenol ES 500 mg (*)] 1,000 mg PO TID 03/25/18 [Last Taken 03/25 13:30] Albuterol [Proventil Inhaler HFA (*)] 2 puffs IH QID PRN 03/25/18 [Last Taken Unknown] Budesonide/Formoterol 80/4.5 [Symbicort 80-4.5 Mcg Inhaler] 2 puffs IH BID@03/25/18 [Last Taken 03/25/18] Cholecalciferol Vit D3 [Vitamin D3 (*)] 50,000 unit PO Q30D 03/25/18 [Last Taken 03/05/18] Cyanocobalamin/Folic AC/Vit B6 [FOLBEE TABLET] 1 each PO BID 03/25/18 [Last Taken 03/31/18] Furosemide [Lasix 40 MG (*)] 40 mg PO DAILY 03/25/18 [Last Taken 03/28/18] Losartan Potassium [Cozaar 50 mg (*)] 100 mg PO HS 03/25/18 [Last Taken 03/31/18 ] Metoprolol Succinate Xr [Toprol Xl 50 mg (*)] 100 mg PO HS 03/25/18 [Last Taken 03/31/18] Ondansetron HCl [Zofran] 4 mg PO Q6 PRN 03/25/18 [Last Taken Unknown] Ranolazine [Ranexa] 500 mg PO BIDMEAL 03/25/18 [Last Taken 03/31/18] Sennosides/Docusate Sodium [Senokot-S] 1 each PO BID PRN 03/25/18 [Last Taken ] amLODIPine BESYLATE [Norvasc 10 mg (*)] 5 mg PO BIDMEAL 03/25/18 [Last Taken ] I have personally reviewed and updated: family history, medical history, social history, surgical history - Past Medical History coronary artery disease (With cardiac stent), CHF (Chronic diastolic), COPD ( With chronic hypoxic respiratory failure, requires 3 L at baseline), GERD, hypertension, hyperlipidemia Additional medical history: Chronic left bundle branch block. Recently discharged for severe sepsis and community-acquired pneumonia with acute COPD exacerbation, demand ischemia, metabolic acidosis - Surgical History Reports: coronary stent - Family History Additional family history: Parents are , no recent sick family contacts - Social History Smoking Status: Former smoker Alcohol Use: None Drug Use: None Additional social history: Patient resides in assisted living at [facility] Review of Systems Review of Systems: ROS: 10pt was reviewed & negative except for what was stated in HPI & below Cardiac: Reports: chest pain Physical Exam Physical Exam: Temp Pulse Resp BP Pulse Ox 37.0 C 65 18 154/70 H 97 04/01/18 12:04 04/01/18 12:04 04/01/18 12:04 04/01/18 12:04 04/01/18 12:04 O2 (L/minute) 2 Constitutional: no apparent distress, appears nourished, not in pain Eyes: PERRL, anicteric sclera, EOMI Ears, Nose, Mouth, Throat: moist mucous membranes, hearing normal, ears appear normal, no oral mucosal ulcers Cardiovascular: systolic murmur (2/6 at right sternal border), edema (Trace bilateral lower extremities), No irregularly irregular, No JVD, No tachycardia Respiratory: no respiratory distress, no rales or rhonchi, clear to auscultation , No expiratory wheeze, No inspiratory crackles, No bronchial breath sounds Gastrointestinal: normoactive bowel sounds, soft, non-tender abdomen, no palpable masses, No distension Skin: warm, No abrasion, No rash Neurologic: AAOx3, sensation intact bilaterally, No weakness Psychiatric: interacting appropriately, not anxious, not encephalopathic, thought process linear Lab Data & Imaging Review 04/01/18 09:03 04/01/18 09:03 WBC 17.36 10^3/uL (3.80-9.50) H 04/01/18 09:03 RBC 3.94 10^6/uL (4.18-5.33) L 04/01/18 09:03 Hgb 11.9 g/dL (12.6-16.3) L 04/01/18 09:03 Hct 35.5 % (38.0-47.0) L 04/01/18 09:03 MCV 90.1 fL (81.5-99.8) 04/01/18 09:03 MCH 30.2 pg (27.9-34.1) 04/01/18 09:03 MCHC 33.5 g/dL (32.4-36.7) 04/01/18 09:03 RDW 15.0 % (11.5-15.2) 04/01/18 09:03 Plt Count 535 10^3/uL (150-400) H 04/01/18 09:03 MPV 9.1 fL (8.7-11.7) 04/01/18 09:03 Neut % (Auto) Not Reported 04/01/18 09:03 Lymph % (Auto) Not Reported 04/01/18 09:03 [place] % (Auto) Not Reported 04/01/18 09:03 Eos % (Auto) Not Reported 04/01/18 09:03 Baso % (Auto) Not Reported 04/01/18 09:03 Nucleat RBC Rel Count Not Reported 04/01/18 09:03 Absolute Neuts (auto) Not Reported 04/01/18 09:03 Absolute Lymphs (auto) Not Reported 04/01/18 09:03 Absolute Monos (auto) Not Reported 04/01/18 09:03 Absolute Eos (auto) Not Reported 04/01/18 09:03 Absolute Basos (auto) Not Reported 04/01/18 09:03 Absolute Nucleated RBC Not Reported 04/01/18 09:03 Immature Gran % Not Reported 04/01/18 09:03 Seg Neutrophils % 61.0 % 04/01/18 09:03 Band Neutrophils % 1.0 % 04/01/18 09:03 Lymphocytes % 29.0 % 04/01/18 09:03 Monocytes % 7.0 % 04/01/18 09:03 Eosinophils % 0 % 04/01/18 09:03 Basophils % 2.0 % 04/01/18 09:03 Metamyelocytes % 0 % 04/01/18 09:03 Myelocytes % 0 % 04/01/18 09:03 Promyelocytes % 0 % 04/01/18 09:03 Blast Cells % 0 % 04/01/18 09:03 Immature Gran # Not Reported 04/01/18 09:03 Absolute Seg Neuts 10.59 10^/uL (1.70-6.50) H 04/01/18 09:03 Absolute Band Neuts 0.17 10^3/uL (0.00-0.70) 04/01/18 09:03 Absolute Lymphocytes 5.03 10^3/uL (1.00-3.00) H 04/01/18 09:03 Absolute Monocytes 1.22 10^3/uL (0.30-0.80) H 04/01/18 09:03 Absolute Eosinophils 0.00 10^3/uL (0.03-0.40) L 04/01/18 09:03 Absolute Basophils 0.35 10^3/uL (0.02-0.10) H 04/01/18 09:03 Absolute Metamyelocyte 0.00 10^3/mL (0.00-0.00) 04/01/18 09:03 Absolute Myelocytes 0.00 10^3/mL (0.00-0.00) 04/01/18 09:03 Absolute Promyelocytes 0.00 10^3/uL (0.00-0.00) 04/01/18 09:03 Absolute Plasma Cells 0.00 10^3/uL (0.00-0.00) 04/01/18 09:03 RBC/WBC/PLT Morphology NORMAL (NORMAL) 04/01/18 09:03 Absolute Blast Cells 0.00 10^3/uL (0.00-0.00) 04/01/18 09:03 Plasma Cells % 0 % 04/01/18 09:03 Platelet Estimate INCREASED (ADEQ) H 04/01/18 09:03 PT 13.4 SEC (12.0-15.0) 04/01/18 09:03 INR 1.00 (0.83-1.16) 04/01/18 09:03 APTT 24.8 SEC (23.0-38.0) 04/01/18 09:03 D-Dimer 0.46 ug/mLFEU (0.00-0.50) 04/01/18 10:15 Sodium 141 mEq/L (135-145) 04/01/18 09:03 Potassium 4.5 mEq/L (3.3-5.0) 04/01/18 09:03 Chloride 101 mEq/L (97-110) 04/01/18 09:03 Carbon Dioxide 23 mEq/l (22-31) 04/01/18 09:03 Anion Gap 17 mEq/L (8-16) H 04/01/18 09:03 BUN 30 mg/dL (7-23) H 04/01/18 09:03 Creatinine 0.9 mg/dL (0.6-1.0) 04/01/18 09:03 Estimated GFR 60 04/01/18 09:03 Glucose 161 mg/dL (70-100) H 04/01/18 09:03 Calcium 10.9 mg/dL (8.5-10.4) H 04/01/18 09:03 Phosphorus 3.9 mg/dL (2.5-4.5) 04/01/18 09:03 Troponin I 0.015 ng/mL (0.000-0.034) 04/01/18 11:58 NT-Pro-B Natriuret Pep 1080 pg/mL (0-450) H 04/01/18 09:03 Visualized and Interpreted Chest x-ray results: Yes Chest X-Ray results: other (Mild interstitial edema) Visualized and Interpreted EKG results: Yes EKG Interpretation: Positive for: left bundle branch block Assessment & Plan Assessment: 83-year-old female presenting with acute chest pain Plan: 1. Chest pain. Acute, new problem this provider, further workup indicated. Patient is high risk for obstructive coronary disease with recent demand ischemia during her last hospitalization for severe sepsis, and the plan had been for her to have an outpatient Lexiscan stress test in approximately 2 weeks time for further evaluation -given that patient has now experienced severe chest pain at rest and is at risk for unstable angina, will cycle her cardiac enzymes, and perform a Lexiscan stress test now that she is chest pain-free -monitor on telemetry -she has been effectively ruled out for pulmonary embolism with negative D-dimer -I suspect the cause of patient's symptoms is either secondary to reflux and possible esophageal spasm versus persistently reactive airways given her previous response to DuoNeb treatments -given the high likelihood of recurrence of symptoms, bleed is prudent to observe the patient this afternoon, overnight, and tomorrow morning which is generally when she has experienced the exacerbation of symptoms, and treat supportively, with a GI cocktail, Tums as needed, continued PPI, addition of H2 jordi, and duo nebs if all of these other methods are unsuccessful -I have discussed this plan in detail with the patient and her son 2. COPD with chronic hypoxic respiratory failure. Recently experienced COPD exacerbation and respiratory failure, has been on slightly higher rate of supplemental oxygen at 4 L, currently has no evidence of acute exacerbation on physical exam -continue home medications 3. Coronary artery disease. Chronic, continue Plavix, statin, ranolazine, beta- jordi 4. Hypertension. Chronic, continue home medications, consider addition of medication given that she may be suboptimally controlled 5. Chronic diastolic congestive heart failure. No evidence of acute exacerbation, her BNP is half of what it was during last hospitalization, she has no crackles on physical exam and her oxygen requirements are currently stable 6. Chronic left bundle branch block. When EMS arrived to scene, they a intentionally perceived her left bundle branch block on cardiac monitoring to be acute, they called a cardiac alert, which resulted in a stat echo in the emergency department, results currently pending -she has a chronic left bundle branch block, getting stress test this afternoon 7. Gastroesophageal reflux disease. Chronic, continue scheduled PPI home med, add scheduled H2 jordi, have a GI cocktail and times available as mentioned above Diet. Cardiac Prophylaxis. High risk patient, Lovenox 40 Code. Do not resuscitate per patient, son is MD ODEN Disposition. Anticipated discharge is 04/02, pending further workup as outlined above. I have discussed patient's presentation with Dr. Farooq Quiles, he and I both agree the patient warrants further workup as outlined above and observation.
[2018-04-01] MEDS: IPRATROPIUM/ALBUTEROL 3 ML DEYVIAL IH PRN ×2 (14:50→21:38)
--- NOTE | 2018-04-01 15:08 | PDCARPN ---
Cardiology Progress Note Chief Complaint: CP/SOB Assessment/Plan: Assessment: Kenia is a 83 y/o F with a history of CAD s/p stenting, LBBB, Diastolic CHF, moderate , and COPD on O2 who was recently hospitalized with pneumonia and sepsis. During her hospitalization she complained of intermittant chest discomfort which resolved with neb treatments. She was d/c yesterday but readmitted today with recurrent chest tightness. Trops are negative x2 and BNP is trending down and close to her baseline. A echo showed preserved LV function without wall motion abnormalities. Plan: 1. CAD s/p prior stenting presented with CP. Unlikely cardiac. More likely related to pulmonary disease. Trops negative x2 and limited echo was unremarkable. Nuc is pending. She did have chest tightness with the Adenosine infusion which improved with a neb treatment. 2. Pneumonia and COPD- per Hospitalists. 3. Chronic LBBB 4. Moderate stable. 5. D CHF- euvolemic. 04/01/18 15:03 Subjective: Complaining of intermittant chest tightness which improved this afternoon with a neb treatment. Objective: Vital Signs (8 Hrs) Temp Pulse Resp BP Pulse Ox 04/01/18 12:04 37.0 C 65 18 154/70 H 97 04/01/18 11:17 78 18 173/78 H 97 04/01/18 10:34 77 18 153/75 H 97 04/01/18 09:52 87 18 140/67 H 96 Intake/Output (24 Hrs) 03/31/18 04/01/18 04/02/18 05:59 05:59 05:59 Output Total 1 Balance -1 Output: Urine (ml) 1 Toilet 1 Other: Weight 87.997 kg Result Diagrams: 04/01/18 09:03 04/01/18 09:03 Cardiac Labs: Cardiac Lab Results (72 Hrs) 04/01/18 11:58 Troponin I 0.015 EKG: LBBB Echocardiogram: preserved LV function without wall motion abnormalities. - Physical Exam Constitutional: no apparent distress Cardiovascular: regular rate and rhythm, systolic murmur Peripheral Pulses: 2+: dorsalis-pedis (R), dorsalis-pedis (L) Respiratory: expiratory wheeze Skin: no edema Neurologic: AAOx3 ICD10 Worksheet Patient Problems: Problems Problem Status Onset Chest pain Acute Aortic stenosis Acute Hypertension Acute New onset left bundle branch block (LBBB) Acute Pneumonia Acute Severe sepsis Acute Unstable angina Acute chronic disease mgmt/transitional care Acute Primary localized osteoarthrosis, lower leg Chronic
--- NOTE | 2018-04-01 15:58 | CPR ---
[f rep st] NONINVASIVE CARDIAC PROCEDURE REPORT DATE OF PROCEDURE: 04/01/2018 PROCEDURE: Lexiscan nuclear stress test. INDICATION: The patient is an 83-year-old female with a history of coronary artery disease and prior stenting. She was recently hospitalized secondary to pneumonia and sepsis and did have intermittent chest discomfort during that hospitalization. Her discomfort improved with nebulizer treatments. S he was discharged home yesterday and presented back this morning with recurrent chest tightness. PROCEDURE IN DETAIL: Consent was obtained and the patient was placed on continuous telemetry. Her r esting EKG revealed normal sinus rhythm with a left bundle branch block. The patient was infused wit h Lexiscan and complained of abdominal discomfort, headache, and shortness of breath. She remained i n normal sinus rhythm with a left bundle branch block. She was given caffeine and her shortness of b reath and headache initially improved. About 3 minutes into recovery, she then began to complain of chest tightness which was similar to what she presented to the hospital with. She was given a nebuli zer treatment with improvement in her chest tightness and shortness of breath. Her oxygen saturation throughout the procedure remained stable in the 90s. Her blood pressure at rest was 162/80 and drop ped with infusion to 142/80. PLAN: Await nuclear images. /[id number]/MODL
[2018-04-01] MEDS ORDERED: POLYETHYLENE GLYCOL 3350 17 GM PKT PO PRN (17:11)
[2018-04-01] MEDS ORDERED: BISACODYL 10 MG SUPP PR PRN (17:11)
[2018-04-01] MEDS ORDERED: NITROGLYCERIN 0.4 MG BTL SL PRN (17:11)
[2018-04-01] MEDS ORDERED: CETIRIZINE 10 MG TAB PO PRN (17:11)
[2018-04-01] MEDS ORDERED: ALBUTEROL 60 PUFFS/8 GM MDI IH PRN (17:11)
[2018-04-01] MEDS ORDERED: LIDOCAINE HCL TP PRN (17:11)
[2018-04-01] MEDS ORDERED: traMADol 50 MG TAB PO PRN (17:11)
[2018-04-01] MEDS ORDERED: SENNOSIDES/DOCUSATE SODIUM TAB PO PRN (17:11)
[2018-04-01] MEDS: PANTOPRAZOLE SODIUM 40 MG TAB PO SCH (17:47)
[2018-04-01] MEDS: amLODIPine BESYLATE 5 MG TAB PO SCH (17:47)
[2018-04-01] MEDS: RANOLAZINE 500 MG TAB.ER PO SCH (17:47)
[2018-04-01] MEDS ORDERED: BUDESONIDE/FORMOTEROL 80/4.5 60 PUFFS/MDI IH SCH (18:00)
[2018-04-01] MEDS ORDERED: FLUTICASONE NASAL 120 SPRAYS/16 GM MDI EACHNARE PRN (21:00)
[2018-04-01] MEDS: ATORVASTATIN CALCIUM 40 MG TAB PO SCH (22:28)
[2018-04-01] MEDS: FAMOTIDINE 20 MG TAB PO SCH (22:28)
[2018-04-01] MEDS: METOPROLOL SUCCINATE XR 100 MG TAB PO SCH (22:28)
[2018-04-01] MEDS: LOSARTAN POTASSIUM 50 MG TAB PO SCH (22:29)
[2018-04-01] MEDS: CYANOCOBALAMIN/FA/PYRIDOXINE 1 EACH TAB PO SCH (22:30)
[2018-04-01] MEDS: ACETAMINOPHEN 500 MG TAB PO SCH (22:34)
[2018-04-02 08:17] LABS: PLATELET COUNT 515 10^3/uL (150-400)
[2018-04-02] MEDS: RANOLAZINE 500 MG TAB.ER PO SCH ×2 (09:17→17:25)
[2018-04-02] MEDS: PANTOPRAZOLE SODIUM 40 MG TAB PO SCH ×2 (09:17→17:24)
[2018-04-02] MEDS: amLODIPine BESYLATE 5 MG TAB PO SCH ×2 (09:17→17:25)
--- NOTE | 2018-04-02 09:22 | PDCARPN ---
Cardiology Progress Note Chief Complaint: chest pain Assessment/Plan: Assessment: 1. Chest pain (normal troponin x 2, normal LVEF and no WMA, small area of lateral ischemia with normal wall motion on Lexiscan stress) 2. Coronary artery disease with PCI to the LAD and distal RCA in 2009 3. Community Acquired pneumonia and sepsis 4. Hypertension 5. Moderate aortic stenosis 6. Diastolic CHF 7. COPD and chronic respiratory failure Summary: Kenia's chest pain was did not respond to NTG and resolved with nebulizer. She did have some chest pain post Lexiscan infusion that resolved with caffiene and nebulizer. With normal troponin x 2, normal wall motion on echo and nuclear stress and small area of lateral ischemia, I think her chest symptoms are secondary to recent pneumonia and sepsis in the setting of underlying copd and chronic respiratory failure. Her BP is sub optimally controlled on her current regimen of Metoprolol Succinate 100 mg, Losartan 100 mg daily and Amlodipine 5 mg bid. Will not increaese Metoprolol in the setting of COPD and pneumonia. Would add spironolactone for improved BP control in the setting of diastolic CHF. If Kenia experiences further chest pain as her pulmonary status improves and her BP normalizes, would plan for [facility] at that time. For now, recommend optimizing BP management, and ongoing maximized medical therapy for CAD. Plan: -Add spironolatone 25 mg daily -Continue Metoprolol Succinate 100 mg daily -Continue Losartan 100 mg daily -Continue Amlodipne 5 mg bid -Continue Plavix 75 mg daily -Continue Atorvastatin 40 mg daily -Continue Ranexa 500 mg bid -Check BMP in am to assess potassium in the setting of adding spironolactone -Fating Lipid profile in the AM. -Recommend she stay in the hospital today and consider DC tomorrow. 04/02/18 09:24 Subjective: Kenia has had no episodes of chest pain overnight. She states she is feeling better. She denies any chest pain or pressure. No pnd or orthopena. No palpitations,dizziness, lightheadedness or syncope. No events on telemetry. She remains hypertensive. She remains on her outpatient regimen of Losartan 100 mg daily, Metoprolol Succinate 100 mg daily, and Amlodipine 5 mg bid. Troponin has been negative x 2 with values of 0.012 and follow up value of 0.015. (note: peak troponin on initial admission of 0.038 in the setting of sepsis and pneumonia). Echocardiogram demonstrated normal LVEF with normal wall motion. Lexiscan nuclear stress demonstrated small area of lateral ischemia with preserved LVEF of 70%. I think septal wall findings consistent with LBBB. Kenia has known history of CAD with PCI to the LAD, D1 and distal RCA in July 2010. Reviewed/Discussed With: hospitalist Time Spent with Patient: greater than 25 minutes Time Spent with Patient: Greater than 25 minutes spent on this patients care, greater than 50% of time spent counseling, educating, and coordinating care regarding the above mentioned plan. Objective: Vital Signs (8 Hrs) Temp Pulse Resp BP Pulse Ox 04/02/18 07:30 36.7 C 64 18 173/74 H 97 04/02/18 04:37 36.5 C 79 17 177/93 H 96 Intake/Output (24 Hrs) 04/01/18 04/02/18 04/03/18 05:59 05:59 05:59 Intake Total 680 Output Total 1 Balance 679 Intake: Oral (ml) 680 Output: Urine (ml) 1 Toilet 1 Other: Weight 87.4 kg Intake Quantity Yes Sufficient Number of Voids Toilet 2 1 Result Diagrams: 04/02/18 08:09 04/02/18 08:09 Cardiac Labs: Cardiac Lab Results (72 Hrs) 04/01/18 11:58 Troponin I 0.015 Telemetry: NSR. No events Echocardiogram: Normal LV function. No wall motion changes. - Physical Exam Eyes: PERRL Ears, Nose, Mouth, Throat: moist mucous membranes Cardiovascular: regular rate and rhythm, systolic murmur Peripheral Pulses: 2+: carotid (R), carotid (L) Respiratory: clear to auscultate bilat Neurologic: AAOx3, CN II-XII grossly intact Psychiatric: cooperative, interactive, following commands ICD10 Worksheet Patient Problems: Problems Problem Status Onset Severe sepsis Acute Pneumonia Acute New onset left bundle branch block (LBBB) Acute Aortic stenosis Acute chronic disease mgmt/transitional care Acute Primary localized osteoarthrosis, lower leg Chronic Chest pain Acute Hypertension Acute Unstable angina Acute
[2018-04-02] MEDS: BUDESONIDE/FORMOTEROL 80/4.5 60 PUFFS/MDI IH SCH ×2 (09:53→20:33)
[2018-04-02] MEDS: CYANOCOBALAMIN/FA/PYRIDOXINE 1 EACH TAB PO SCH ×2 (10:03→20:46)
[2018-04-02] MEDS: ACETAMINOPHEN 500 MG TAB PO SCH ×3 (10:03→20:43)
[2018-04-02] MEDS: ESCITALOPRAM OXALATE 10 MG TAB PO SCH (10:03)
[2018-04-02] MEDS: ENOXAPARIN 40 MG/0.4 ML SYR SC SCH (10:03)
[2018-04-02] MEDS: CLOPIDOGREL BISULFATE 75 MG TAB PO SCH (10:03)
[2018-04-02] MEDS: FAMOTIDINE 20 MG TAB PO SCH ×2 (10:04→20:44)
[2018-04-02] MEDS: FENOFIBRATE 145 MG TAB PO SCH (10:04)
[2018-04-02] MEDS: SENNOSIDES/DOCUSATE SODIUM TAB PO SCH (10:04)
[2018-04-02] MEDS: FUROSEMIDE 40 MG TAB PO SCH (10:04)
[2018-04-02] MEDS: SPIRONOLACTONE 25 MG TAB PO SCH (11:02)
--- NOTE | 2018-04-02 14:46 | HOSPPROG ---
Hospitalist Progress Note Assessment/Plan: # Chest pain- Acute-patient returned to the hospital in less than 24 hr discharge with complaints of chest pain Serial troponin and EKG remain negative - cardiac Lexiscan negative for inducible ischemia yesterday Telemetry(personally reviewed and interpreted) remains in sinus rhythm - continue Plavix, Ranexa, beta-jordi, ARB - continue lipid therapy - follow chest pain symptoms # Uncontrolled hypertension- SBP overnight in the 150s to 170s - continue multi-drug regimen from home - adding 25 mg spironolactone - if BP better controlled in a.m. Will be candidate for discharge # COPD with chronic hypoxic respiratory failure. Recently experienced COPD exacerbation and respiratory failure Oxygen saturations 97% on 3 L - ambulated today with PT without complication requiring only 4 L -continue home medications # Coronary artery disease. Chronic, continue Plavix, statin, ranolazine, beta- jordi # Chronic diastolic congestive heart failure. No evidence of acute exacerbation , # Gastroesophageal reflux disease. Chronic, continue scheduled PPI home med, add scheduled H2 jordi Diet. Cardiac Prophylaxis. High risk patient, Lovenox 40 Code. Do not resuscitate per patient, son is MD ODEN Disposition. Anticipated discharge is 04/03 pending improved blood pressure control I have discussed patient's presentation with Dr. Castellano from Cardiology-we will had spironolactone today monitor the patient's blood pressure overnight Subjective: Feels well Objective: Vital Signs Temp Pulse Resp BP Pulse Ox 36.9 C 68 18 129/65 H 98 04/02/18 12:00 04/02/18 12:00 04/02/18 12:00 04/02/18 12:00 04/02/18 12:00 Laboratory Results 04/02/18 08:09 04/02/18 08:09 04/01/18 04/02/18 04/03/18 05:59 05:59 05:59 Intake Total 680 Output Total 1 Balance 679 PT 13.4 SEC (12.0-15.0) 04/01/18 09:03 INR 1.00 (0.83-1.16) 04/01/18 09:03 - Physical Exam Constitutional: chronically ill appearing Eyes: anicteric sclera Ears, Nose, Mouth, Throat: moist mucous membranes Cardiovascular: regular rate and rhythym, systolic murmur Respiratory: no respiratory distress, No inspiratory crackles Gastrointestinal: normoactive bowel sounds Genitourinary: no bladder fullness Skin: warm Musculoskeletal: No asymmetric calves Neurologic: AAOx3 Psychiatric: interacting appropriately Lymph, Heme, Immunologic: no cervical LAD ICD10 Worksheet Patient Problems: Problems Problem Status Onset Chest pain Acute Aortic stenosis Acute Hypertension Acute New onset left bundle branch block (LBBB) Acute Pneumonia Acute Severe sepsis Acute Unstable angina Acute chronic disease mgmt/transitional care Acute Primary localized osteoarthrosis, lower leg Chronic
[2018-04-02] MEDS ORDERED: CANN-EASE 2 GM TUBE TP PRN (14:49)
--- NOTE | 2018-04-02 15:25 | PDMN ---
Medical Necessity Medical necessity: C/M review: est. > 2 MN LOS for eval and TX of acute chest pain - serial troponin and EKG remain negative, 04/01/2018 cardiac Lexiscan negative for inducible ischemia , uncontrolled hypertension, requiring ongoing continue - Plavix, Ranexa, beta-jordi, ARB, lipid therapy, multi-drug regimen from home, add 25 mf spironolactone, cardiac monitoring, pulse oximetry , supplemental O2, acute inpt PT/OT comorbid patient return to the hospital in < 24 hr discharge with complaints of chest pain just prior to this admission, COPD with chronic hypoxic respiratory failure, patient recently experienced COPD exacerbation and respiratory failure, CAD, chronic diastolic CHF, GERD per 04/02/2018 Hospitalist progress note.
--- NOTE | 2018-04-02 17:26 | ASMTCMCOM ---
CM Note CM Note Notes: Reviewed chart, spoke with Dr. Pedraza and ABIMBOLA Robin regarding discharge plan of care, pt's progress. Per Dr. Pedraza, pt to likely discharge Wednesday home independent (back to Assisted Living). BUTCHER form delivered. Spent almost an hour speaking with pt about form; answering questions. BUTCHER signed and placed in chart; copy provided to pt. Pt given CM business card, as well as Patient Financial Services card for additional billing concerns/questions. CM will continue to follow. Current Discharge Plan: Home to [facility] Date Signed: 04/02/2018 05:25 PM Electronically Signed By:Melissa Fisher RN
[2018-04-02] MEDS: LOSARTAN POTASSIUM 50 MG TAB PO SCH (20:44)
[2018-04-02] MEDS: METOPROLOL SUCCINATE XR 100 MG TAB PO SCH (20:44)
[2018-04-02] MEDS: ATORVASTATIN CALCIUM 40 MG TAB PO SCH (20:45)
--- NOTE | 2018-04-03 08:49 | PDCARPN ---
Cardiology Progress Note Chief Complaint: Patient with complaints of "chest pains" this morning upon waking. Assessment/Plan: Assessment: Patient is an 83 y/o female with history of COPD (on supplemental oxygen), HTN, CAD s/p PCI (LAD and RCA, 2010), diastolic heart failure, LBBB pattern (known), and moderate aortic stenosis, who represented to [facility] after complaints of chest tightness were noted after being discharged for pneumonia/sepsis. Cardiac biomarkers have been negative, and echocardiography with both normal wall motion and normal systolic function. Stress testing with a small distal septal ischaemia, normal wall motion, and normal LV function. Mild elevation to the creatinine was noted (from 0.8 to 1.2) this morning. Furthermore, chest discomfort awakened the patient today. Interestingly, the patient noted that belching yesterday did cause some relief of the chest tightness that was noted, but unfortunately, this has not been a consistent finding. Plan: (1) Continue antihypertensive therapy on beta jordi, calcium channel jordi , and angiotensin receptor jordi (2) Would continue newly added spironolactone as at present, but given the mild elevation in creatinine that was noted, would reassess BMP to determine what the creatinine trend direction is doing (3) Continue Plavix for history of CAD/PCI (4) Statins should continue for HLP, and maintain annual assessment of cholesterol and LFTs (5) Ranexa to continue for chest pain history (6) Given continued "chest discomfort", elevation in blood pressure, and newly noted creatinine elevation, would have patient remain in house while these issues are better addressed. Angiography remains a possible option, but the degree/extent of ischaemia on the stress test is not to the degree that suggests urgent cath. Subjective: Patient was comfortable this morning, but did appreciate another bout of "chest tightness" upon waking Reviewed/Discussed With: hospitalist Objective: Vital Signs (8 Hrs) Temp Pulse Resp BP Pulse Ox 04/03/18 07:11 36.4 C 57 L 16 151/67 H 98 04/03/18 04:00 36.5 C 65 16 140/68 H 96 Intake/Output (24 Hrs) 04/02/18 04/03/18 04/04/18 05:59 05:59 05:59 Intake Total 680 1800 Output Total 1 Balance 679 1800 Intake: Oral (ml) 680 1800 Output: Urine (ml) 1 Toilet 1 Other: Weight 87.4 kg Intake Quantity Yes Yes Sufficient Number of Voids Toilet 2 2 Number of Stools Toilet 1 Result Diagrams: 04/02/18 08:09 04/03/18 03:31 Cardiac Labs: Cardiac Lab Results (72 Hrs) 04/01/18 11:58 Troponin I 0.015 Telemetry: normal sinus rhythm at rate of 60 bpm - Physical Exam Constitutional: WDWN, healthy appearing, no apparent distress, obese Eyes: PERRL, EOMI Ears, Nose, Mouth, Throat: moist mucous membranes Cardiovascular: regular rate and rhythm, no rubs, no gallops, systolic murmur, pulses symmetric bilat, No jugular vein distention Peripheral Pulses: 2+: dorsalis-pedis (R), dorsalis-pedis (L) Respiratory: clear to auscultate bilat, no crackles, no wheezes Gastrointestinal: normoactive bowel sounds Skin: no rashes, no edema Neurologic: AAOx3, CN II-XII grossly intact Psychiatric: cooperative, interactive, following commands ICD10 Worksheet Patient Problems: Problems Problem Status Onset Chest pain Acute Aortic stenosis Acute Hypertension Acute New onset left bundle branch block (LBBB) Acute Pneumonia Acute Severe sepsis Acute Unstable angina Acute chronic disease mgmt/transitional care Acute Primary localized osteoarthrosis, lower leg Chronic
[2018-04-03] MEDS: ESCITALOPRAM OXALATE 10 MG TAB PO SCH (09:13)
[2018-04-03] MEDS: RANOLAZINE 500 MG TAB.ER PO SCH ×2 (09:13→17:47)
[2018-04-03] MEDS: FAMOTIDINE 20 MG TAB PO SCH ×2 (09:13→20:39)
[2018-04-03] MEDS: CLOPIDOGREL BISULFATE 75 MG TAB PO SCH (09:14)
[2018-04-03] MEDS: PANTOPRAZOLE SODIUM 40 MG TAB PO SCH ×2 (09:14→17:47)
[2018-04-03] MEDS: FENOFIBRATE 145 MG TAB PO SCH (09:14)
[2018-04-03] MEDS: FUROSEMIDE 40 MG TAB PO SCH (09:14)
[2018-04-03] MEDS: ENOXAPARIN 40 MG/0.4 ML SYR SC SCH (09:15)
[2018-04-03] MEDS: SENNOSIDES/DOCUSATE SODIUM TAB PO SCH (09:15)
[2018-04-03] MEDS: BUDESONIDE/FORMOTEROL 80/4.5 60 PUFFS/MDI IH SCH ×2 (09:44→19:34)
[2018-04-03] MEDS: ACETAMINOPHEN 500 MG TAB PO SCH ×3 (09:57→20:39)
[2018-04-03] MEDS: CYANOCOBALAMIN/FA/PYRIDOXINE 1 EACH TAB PO SCH ×2 (09:57→20:38)
[2018-04-03] MEDS: SPIRONOLACTONE 25 MG TAB PO SCH (09:57)
[2018-04-03] MEDS: amLODIPine BESYLATE 5 MG TAB PO SCH ×2 (09:57→17:48)
--- NOTE | 2018-04-03 10:59 | HOSPPROG ---
Hospitalist Progress Note Assessment/Plan: # Acute Kidney Injury - creatinine 0.8-> 1.2 this am potentially related to initiation of spironolactone - repeat BMP this afternoon # Chest pain- Acute-patient returned to the hospital in less than 24 hr discharge with complaints of chest pain Serial troponin and EKG remain negative - cardiac Lexiscan negative for inducible ischemia yesterday pain again overnight - once relieved by belching Telemetry(personally reviewed and interpreted) remains in sinus rhythm - continue Plavix, Ranexa, beta-jordi, ARB - continue lipid therapy - if sx continue may need to proceed with cath # Uncontrolled hypertension- SBP overnight remained in the 150s to 170s - continue multi-drug regimen from home - added 25 mg spironolactone - recheck renal function - may need to dc aldactone and chose different agent # COPD with chronic hypoxic respiratory failure. Recently experienced COPD exacerbation and respiratory failure Oxygen saturations 97% on 3 L - has good symptomatic response to beta agonist -continue home medications # Coronary artery disease. Chronic, continue Plavix, statin, ranolazine, beta- jordi # Chronic diastolic congestive heart failure. No evidence of acute exacerbation , # Gastroesophageal reflux disease. Chronic, continue scheduled PPI home med, add scheduled H2 jordi Diet. Cardiac Prophylaxis. High risk patient, Lovenox 40 Code. Do not resuscitate per patient, son is MD POHue Disposition. Anticipated discharge is 04/03 pending improved blood pressure control I have discussed patient's presentation with Dr. Campso from Cardiology-will recheck BMP this afternoon and adjust cardiac meds accordingly Subjective: some chest pain overnight again Objective: Vital Signs Temp Pulse Resp BP Pulse Ox 36.4 C 61 15 151/67 H 99 04/03/18 07:11 04/03/18 09:44 04/03/18 09:44 04/03/18 07:11 04/03/18 09:44 Laboratory Results 04/02/18 08:09 04/03/18 03:31 04/02/18 04/03/18 04/04/18 05:59 05:59 05:59 Intake Total 680 1800 Output Total 1 Balance 679 1800 PT 13.4 SEC (12.0-15.0) 04/01/18 09:03 INR 1.00 (0.83-1.16) 04/01/18 09:03 - Physical Exam Constitutional: obese Eyes: anicteric sclera Ears, Nose, Mouth, Throat: moist mucous membranes Cardiovascular: regular rate and rhythym, systolic murmur Respiratory: No expiratory wheeze, No inspiratory crackles Gastrointestinal: normoactive bowel sounds Genitourinary: no bladder fullness Skin: normal color Musculoskeletal: No asymmetric calves Neurologic: AAOx3 Psychiatric: interacting appropriately Lymph, Heme, Immunologic: no cervical LAD ICD10 Worksheet Patient Problems: Problems Problem Status Onset Chest pain Acute Aortic stenosis Acute Hypertension Acute New onset left bundle branch block (LBBB) Acute Pneumonia Acute Severe sepsis Acute Unstable angina Acute chronic disease mgmt/transitional care Acute Primary localized osteoarthrosis, lower leg Chronic
[2018-04-03] MEDS: IPRATROPIUM/ALBUTEROL 3 ML DEYVIAL IH PRN (12:06)
[2018-04-03] MEDS: LOSARTAN POTASSIUM 50 MG TAB PO SCH (20:39)
[2018-04-03] MEDS: ATORVASTATIN CALCIUM 40 MG TAB PO SCH (20:39)
[2018-04-03] MEDS: METOPROLOL SUCCINATE XR 100 MG TAB PO SCH (20:39)
[2018-04-04 08:29] VITALS: BP 132/59
[2018-04-04] MEDS: BUDESONIDE/FORMOTEROL 80/4.5 60 PUFFS/MDI IH SCH (08:37)
[2018-04-04] MEDS ORDERED: CHOLECALCIFEROL VIT D3 50,000 UNIT CAP PO SCH (09:00)
--- NOTE | 2018-04-04 09:09 | PDCARPN ---
Cardiology Progress Note Chief Complaint: No cardiovascular complaints this morning. Patient did ambulate yesterday with complaints of fatigue. Assessment/Plan: Assessment: 04-04-18 Patient doing well today. Yesterday morning, the patient noted chest pains. Today, no chest pains and the blood pressure is better controlled. Renal function with elevation in creatinine noted yesterday after start on spironolactone, but no further elevation has been appreciated. No PND or orthopnea. Patient reports that she is feeling well today. 04-03-18 Patient is an 83 y/o female with history of COPD (on supplemental oxygen), HTN, CAD s/p PCI (LAD and RCA, 2010), diastolic heart failure, LBBB pattern (known), and moderate aortic stenosis, who represented to [facility] after complaints of chest tightness were noted after being discharged for pneumonia/sepsis. Cardiac biomarkers have been negative, and echocardiography with both normal wall motion and normal systolic function. Stress testing with a small distal septal ischaemia, normal wall motion, and normal LV function. Mild elevation to the creatinine was noted (from 0.8 to 1.2) this morning. Furthermore, chest discomfort awakened the patient today. Interestingly, the patient noted that belching yesterday did cause some relief of the chest tightness that was noted, but unfortunately, this has not been a consistent finding. Plan: (1) Patient should ambulate today to see how she is feeling with activity (2) Would continue antihypertensive therapy as at present (including the newly added diuretic) (3) Plavix for CAD/PCI should continue (4) Statins for HLP to continue (5) Would have outpatient office visit set up for this week (6) Would ensure that BMP is arranged prior to the office visit. Subjective: No cardiovascular complaints Reviewed/Discussed With: hospitalist Objective: Vital Signs (8 Hrs) Temp Pulse Resp BP Pulse Ox 04/04/18 08:00 36.8 C 63 12 132/59 H 98 04/04/18 04:00 36.6 C 82 14 120/62 96 Intake/Output (24 Hrs) 04/03/18 04/04/18 04/05/18 05:59 05:59 05:59 Intake Total 1800 500 Balance 1800 500 Intake: Oral (ml) 1800 500 Other: Weight 87.4 kg Intake Quantity Yes Yes Sufficient Number of Voids Toilet 2 1 Number of Stools Toilet 1 1 Result Diagrams: 04/02/18 08:09 04/04/18 03:32 Cardiac Labs: Cardiac Lab Results (72 Hrs) 04/01/18 11:58 Troponin I 0.015 Telemetry: Normal sinus rhythm at 70 bpm - Physical Exam Constitutional: WDWN, healthy appearing, no apparent distress Eyes: PERRL, EOMI Ears, Nose, Mouth, Throat: moist mucous membranes Cardiovascular: regular rate and rhythm, systolic murmur, pulses symmetric bilat , No jugular vein distention Peripheral Pulses: 2+: dorsalis-pedis (R), dorsalis-pedis (L) Respiratory: clear to auscultate bilat, no crackles Gastrointestinal: normoactive bowel sounds Skin: no rashes, no edema Musculoskeletal: no muscular tenderness, no joint effusions Neurologic: AAOx3, CN II-XII grossly intact Psychiatric: cooperative, interactive, following commands ICD10 Worksheet Patient Problems: Problems Problem Status Onset Chest pain Acute Aortic stenosis Acute Hypertension Acute New onset left bundle branch block (LBBB) Acute Pneumonia Acute Severe sepsis Acute Unstable angina Acute chronic disease mgmt/transitional care Acute Primary localized osteoarthrosis, lower leg Chronic
[2018-04-04] MEDS: ACETAMINOPHEN 500 MG TAB PO SCH (09:23)
[2018-04-04] MEDS: amLODIPine BESYLATE 5 MG TAB PO SCH (09:24)
[2018-04-04] MEDS: CLOPIDOGREL BISULFATE 75 MG TAB PO SCH (09:24)
[2018-04-04] MEDS: FAMOTIDINE 20 MG TAB PO SCH (09:24)
[2018-04-04] MEDS: PANTOPRAZOLE SODIUM 40 MG TAB PO SCH (09:24)
[2018-04-04] MEDS: FENOFIBRATE 145 MG TAB PO SCH (09:24)
[2018-04-04] MEDS: RANOLAZINE 500 MG TAB.ER PO SCH (09:24)
[2018-04-04] MEDS: ESCITALOPRAM OXALATE 10 MG TAB PO SCH (09:25)
[2018-04-04] MEDS: SENNOSIDES/DOCUSATE SODIUM TAB PO SCH (09:25)
[2018-04-04] MEDS: CYANOCOBALAMIN/FA/PYRIDOXINE 1 EACH TAB PO SCH (09:25)
[2018-04-04] MEDS: ENOXAPARIN 40 MG/0.4 ML SYR SC SCH (09:25)
--- NOTE | 2018-04-04 12:02 | PDIAF ---
- Diagnosis Diagnosis: chest pain Code Status: Do Not Resuscitate - Medication Management Discharge Medications: Medications to Continue on Transfer Budesonide [Rhinocort Aqua] 2 sprays EACHNARE DAILY PRN 08/13/13 [Last Taken 08:00] Clopidogrel Bisulfate [Plavix (*)] 75 mg PO DAILY 08/13/13 [Last Taken 03/31/18] ESCITALOPRAM OXALATE [LEXAPRO] 20 mg PO DAILY 08/13/13 [Last Taken 03/31/18] Herbals/Supplements -Info Only 1 each PO DAILY 08/13/13 [Last Taken 03/25/18] Pantoprazole Sodium [Protonix 40mg (*)] 40 mg PO BIDMEAL 08/13/13 [Last Taken ] chlordiazePOXIDE [Librium 5 mg (*)] 5 mg PO SUMOTUWETHSA@21 08/13/13 [Last Taken 03/31/18] Bisacodyl [Dulcolax] 10 mg RC DAILY PRN #6 supp.rect 07/17/17 [Last Taken Unknown] Polyethylene Glycol 3350 [Miralax 17 gm (*)] 17 gm PO DAILY PRN #12 pkt [Last Taken 03/25/18] Atorvastatin Calcium [Lipitor 40 mg (*)] 40 mg PO HS 11/04/17 [Last Taken ] Cetirizine [ZyrTEC 10 mg (*)] 10 mg PO DAILY PRN 11/04/17 [Last Taken 10/31/17] Fenofibrate,Micronized [Fenofibrate] 200 mg PO DAILY 11/04/17 [Last Taken ] Lidocaine HCl [Astero] 30 ml TP QID PRN 11/04/17 [Last Taken 03/22/18] Nitroglycerin [Nitrostat 0.4 mg (*)] 0.4 mg SL Q5M PRN 11/04/17 [Last Taken Unknown] Sennosides/Docusate Sodium [SENEXON-S TABLET] 1 each PO DAILY 11/04/17 [Last Taken 03/25/18] traMADol [Ultram 50 mg (*)] 25 mg PO Q6H PRN 11/04/17 [Last Taken 03/30/18] Acetaminophen [Tylenol ES 500 mg (*)] 1,000 mg PO TID 03/25/18 [Last Taken 03/25 13:30] Albuterol [Proventil Inhaler HFA (*)] 2 puffs IH QID PRN 03/25/18 [Last Taken Unknown] Budesonide/Formoterol 80/4.5 [Symbicort 80-4.5 Mcg Inhaler] 2 puffs IH BID@03/25/18 [Last Taken 03/25/18] Cholecalciferol Vit D3 [Vitamin D3 (*)] 50,000 unit PO Q30D 03/25/18 [Last Taken 03/05/18] Cyanocobalamin/Folic AC/Vit B6 [FOLBEE TABLET] 1 each PO BID 03/25/18 [Last Taken 03/31/18] Furosemide [Lasix 40 MG (*)] 40 mg PO DAILY 03/25/18 [Last Taken 03/28/18] Losartan Potassium [Cozaar 50 mg (*)] 100 mg PO HS 03/25/18 [Last Taken 03/31/18 ] Metoprolol Succinate Xr [Toprol Xl 50 mg (*)] 100 mg PO HS 03/25/18 [Last Taken 03/31/18] Ondansetron HCl [Zofran] 4 mg PO Q6 PRN 03/25/18 [Last Taken Unknown] Ranolazine [Ranexa] 500 mg PO BIDMEAL 03/25/18 [Last Taken 03/31/18] Sennosides/Docusate Sodium [Senokot-S] 1 each PO BID PRN 03/25/18 [Last Taken ] amLODIPine BESYLATE [Norvasc 10 mg (*)] 5 mg PO BIDMEAL 03/25/18 [Last Taken ] Ipratropium/Albuterol [Duoneb (*)] 3 ml IH Q6 PRN #40 deyvial 03/31/18 [Last Taken 03/30/18] Famotidine [Pepcid 20 MG (*)] 20 mg PO BID #60 tab 04/04/18 [Last Taken Unknown] Spironolactone [Aldactone 25 MG (*)] 25 mg PO DAILY #30 tab 04/04/18 [Last Taken Unknown] Discharge Medications: Refer to the Discharge Home Medication list for PRN reason. - Orders Services needed: Home Care, Registered Nurse, Physical Therapy Home Care Face to Face: I certify that this patient was under my care and that I had the required [id number] encounter meeting the encounter requirements on the discharge day. My findings support the fact that the patient is homebound as defined in Home Care Face to Face Continued: CMS Chapter 7 Medicare Benefits Manual 30.1.1 , The condition of the patient is such that there exists a normal inability to leave home and consequently, leaving home would require a considerable and taxing effort. Isolation Type: None Diet Recommendation: cardiac -low fat low salt Diet Texture: Regular Texture Diet Additional Instructions: please follow with [facility] this week for lab and BP check - Labs/Radiology BMP Date: 04/06/18 (call to [facility]) - Follow Up Care Current Providers and Referrals: Patient,NotPresent [Unknown] - As per Instructions Franco Leon MD [Medical Doctor] -
--- NOTE | 2018-04-04 13:23 | PDHOMEO2F ---
Home Oxygen Face to Face Home Orders: I certify that a physician or a nurse practitioner or physician's design assistant has had a [id number] encounter with this patient on the date of this order due to the diagnosis listed, which relates to the primary reason the patient requires home oxygen. Alternative treatments have been tried, or considered, and deemed ineffective. It is anticipated that supplemental oxygen will result in improvement with treatment. Home oxygen qualifying diagnosis: copd SpO2 on room air (%): 79 Frequency of home oxygen needed: continuous Home oxygen liters per minute: 4 Home oxygen delivery device: nasal cannula Concentrator: Yes E-tanks for mobility and back up: Yes If ordering portable O2, is the patient mobile in the home?: Yes I certify that, based on these findings, the home oxygen is medically necessary for this patient for the following length of time. Length of time home oxygen needed: 99 years Home Oxygen Comment: patient needs a home nebulizer machine
--- NOTE | 2018-04-04 15:39 | ASMTCMCOM ---
CM Note CM Note Notes: Dc order received. Spoke with MD, RN & PT; recommending pt return home to [facility] with [facility] services. Spoke with Carlos, at [facility]; RN & PT to assist pt with HHC needs; dc paperwork faxed; confirmed received. Carlos requesting pt fill her new prescriptions before returning to . Carlos also requesting CM assist pt with transport home. Spoke with pt; pt does not have any money with her to fill new scripts or her portable oxygen tank. Spoke with pt son, Jessee ([phone]); agreeable to picking pt up this afternoon. Jessee to chicken picker pt's portable oxygen tank prior to picking pt up. RN calling in pt's scripts to pt's pharmacy; Jessee agreeable to picking up medications. Jessee concerned because pt did not have nebulizer machine delivered following last admission (pt was here 03/25-03/31 & a nebulizer machine was ordered; [facility] was supposed to deliver machine). Spoke with RN at [facility]; confirmed nebulizer machine was never delivered; reports [facility] did not have enough information. Spoke with RT Augustina & ; script written for nebulizer machine; supporting documents faxed to [facility] & . [facility] to deliver machine to pt's home. Script given to pt's son. [facility] has a machine pt can borrow until pt's machine is delivered. RN & Jessee updated. No other needs at this time. Dc plan-[facility] Date Signed: 04/04/2018 03:38 PM Electronically Signed By:Vivienne Main RN
--- NOTE | 2018-04-04 15:58 | ASDISCHSUM ---
Discharge Information Plan Status:Assisted Living Medically Cleared to Leave: Discharge Date:04/04/2018 03:15 PM CM D/C Disposition:Assisted Living ADT D/C Disposition:Home, Routine, Self-Care Projected Discharge Date:04/04/2018 11:00 AM Transportation at D/C:Family Discharge Delay Reason: Follow-Up Date:04/04/2018 11:00 AM Discharge Slot: Final Diagnosis: Placement Information Referral Type:Assisted Living Residence Referral ID:[id number] Provider Name:[facility] Address 1:[address] Phone Number: Address 2: Fax Number: City:[place] Selection Factors: State:[place] Patient Contact Information Contact Name:USRJIT Relationship:Son Address:[phone] OFFICE PHONE City:[place] Alternate Phone: State/Zip Code:[place] [address] Email: Financial Information Financial Class:Medicare Primary Plan Desc:MEDICARE INPATIENT Primary Plan Number:[id number] Secondary Plan Desc:[facility] Secondary Plan Number:[id number] Assessment Information LACE LACE Acuity / Level of Answers: No Care: Did the patient have an inpatient admission? Comorbidities - select Answers: Chronic pulmonary disease all that apply Congestive heart failure Coronary Artery Disease # of Emergency department Answers: 3-4 visits in the last 6 months Score: 9 Date Signed: 04/01/2018 10:54 AM Electronically Signed By:Nicci Royal RN [facility]WIN Progress Note CM Note CM Note Notes: Pt presented to the ED via EMS from her Assisted Living at [facility] (Main: [phone]) w/chest pain. Pt discharged from [facility] yesterday (recent admission 03/25-03/31/18 due to sepsis, acute on chronic respiratory failure, PNA, COPD and CHF exacerbation, etc.). Pt admitted for cardiac workup and observation due to chest pain. Pt to get Lexiscan stress test and ECHO. Spoke with the Welding Pantograph Operator/Director at , [facility] (C:[phone],O:[phone]); notified of pt's admission. [facility] confirmed pt receives non-skilled HC through their facility (has an aide and on-site RN available to assist w/ADLs & med mgmt) and pt has been receiving outpatient PT at their gym 2x/wk. It was also clarified that pt is NOT on their Memory Care Unit. Please call [facility] prior to discharge as they may need to come and reassess patient before accepting pt back. Anticipate pt will DC back to [place] at [facility] w/continued HC PT (per chart review it looks as if pt was d/c'd yesterday to have skilled PT/OT but not sure if skilled HC was arranged...), and to follow up w/her PCP: Dyan Hair at [facility], Dr Leon at [facility], and Dr Dima Springer w/pulmonology. Pt states she spoke w/her son, Catarino Dillon ([phone], , or [phone]) and he plans to come to the hospital around 12-12:30pm. Pt's code status is DNR (verified recent MOST completed 2016) and lists Jessee as her MDPOA but MDPOA documentation cannot be located in pt's chart; consider requesting MDPOA paperwork. CM to follow. Date Signed: 04/01/2018 12:01 PM Electronically Signed By:Nicci Royal RN [facility] CM Progress Note CM Note CM Note Notes: Reviewed chart, spoke with Dr. Pedraza and ABIMBOLA Robin regarding discharge plan of care, pt's progress. Per Dr. Pedraza, pt to likely discharge Wednesday home independent (back to Assisted Living). BUTCHER form delivered. Spent almost an hour speaking with pt about form; answering questions. BUTCHER signed and placed in chart; copy provided to pt. Pt given CM business card, as well as Patient Financial Services card for additional billing concerns/questions. CM will continue to follow. Current Discharge Plan: Home to [facility] Date Signed: 04/02/2018 05:25 PM Electronically Signed By:Melissa Fisher RN [facility] Progress Note CM Note CM Note Notes: Dc order received. Spoke with , RN & PT; recommending pt return home to [facility] with [facility] services. Spoke with Carlos, at [facility]; RN & PT to assist pt with [facility] needs; dc paperwork faxed; confirmed received. Carlos requesting pt fill her new prescriptions before returning to . Carlos also requesting CM assist pt with transport home. Spoke with pt; pt does not have any money with her to fill new scripts or her portable oxygen tank. Spoke with pt son, Jessee ([phone]); agreeable to picking pt up this afternoon. Jessee to cherry picker operator pt's portable oxygen tank prior to picking pt up. RN calling in pt's scripts to pt's pharmacy; Jessee agreeable to picking up medications. Jessee concerned because pt did not have nebulizer machine delivered following last admission (pt was here 03/25-03/31 & a nebulizer machine was ordered; [facility] was supposed to deliver machine). Spoke with RN at [facility]; confirmed nebulizer machine was never delivered; reports [facility] did not have enough information. Spoke with RT Augustina & ; script written for nebulizer machine; supporting documents faxed to [facility] & . [facility] to deliver machine to pt's home. Script given to pt's son. [facility] has a machine pt can borrow until pt's machine is delivered. RN & Jessee ridley. No other needs at this time. Dc plan-[facility] Date Signed: 04/04/2018 03:38 PM Electronically Signed By:Vivienne Main RN Intervention Information Intervention Type:Post Acute Communication Date of Service:04/01/2018 11:24 AM Patient Type:Observation Staff Member:ABIMBOLA Royal, Nicci Hours:0.5 Discipline:[employer] Severity: Comment: Intervention Type:*BUTCHER-Signed Date of Service:04/02/2018 05:54 PM Patient Type:Inpatient Staff Member:ABIMBOLA Fisher, Melissa Hours: Discipline: Severity: Comment: Intervention Type:*IM-Signed Date of Service:04/04/2018 02:26 PM Patient Type:Inpatient Staff Member:Merced Bellamy Hours: Discipline: Severity: Comment:
--- NOTE | 2018-04-04 18:20 | GDS ---
[f rep st] DISCHARGE SUMMARY DISCHARGE DIAGNOSES: Include: 1. Acute chest pain. 2. Chronic hypoxic respiratory failure secondary to chronic obstructive pulmonary disease. 3. Acute kidney injury. 4. Uncontrolled hypertension. 5. Coronary artery disease. 6. Chronic diastolic heart failure. 7. Gastroesophageal reflux disease. HISTORY OF PRESENT ILLNESS: This is an 83-year-old female who presents with complaints of chest pain after recent hospitalization. For details of the patient's initial presentation, please see the his tory and physical dated 04/01/2018. CONSULTATIVE SERVICES: Include cardiology. PROCEDURES: 04/01/2018, patient underwent myocardial imaging, which showed mild ischemic changes inv olving the distal septum, upper lateral wall, with a normal ejection fraction. HOSPITAL COURSE: 1. Chest pain. The patient was readmitted with her known history and risk factor for evolving coron keila disease. She was ruled out with indeterminate troponins and taken for stress imaging. Cardiolit e imaging did show some ischemia. There was much thought put around taking the patient on to cardiac catheterization. Her symptoms intermittently more consistent with consistent with a GI source than t rue cardiac. The decision was made to optimize her medical management, including blood pressure cont rol, before proceeding to cardiac catheterization. The patient had her blood pressure medications up titrated and will be followed closely in the outpatient setting by Cardiology. The patient was fabiola tionally continued on her outpatient proton pump inhibitor, but in addition, had b.i.d. H2 jordi ad ded to optimize any GI component to her chest pain. 2. Uncontrolled hypertension. Patient is on max dose of multiple agents, was started on low-dose sp ironolactone and did have a bump in her creatinine from baseline 0.8 to 1.2. This remained stable on this medication dosing, and the decision was made by the physical education instructor to continue these medications and have a lab check performed in 48 hours post disposition. The patient has already been scheduled, cardiology labs will be drawn, and she will be followed up 2 days after discharge to verify that the changes in her renal function are not progressing. 3. Chronic hypoxic respiratory failure secondary to COPD. Patient was continued on her outpatient m edications, including nebulized beta agonists. DISCHARGE MEDICATIONS: Medications at the time of disposition: Please reference the med rec printed on 04/04/2018. FOLLOWUP: Appointments include with Cardiology in 48 hours. Pending studies at the time of this dictation are none. I spent greater than 30 minutes in the planning and coordination of this discharge. /[id number]/MODL
== END 2018-04-04 15:15 | disposition home or self-care (01) | DRG 313 ==
LOC: EDUNIT# → INTOOBSV 09:51 → OBSVTOIN 09:51 → F2W 11:26
PROVIDERS: ADMIT Internal Medicine; ATTEND Hospitalist
DX: R07.9 Chest pain, unspecified (principal); N17.9 Acute kidney failure, unspecified; K21.9 Gastro-esophageal reflux disease without esophagitis; J44.9 Chronic obstructive pulmonary disease, unspecified; J96.11 Chronic respiratory failure with hypoxia; I11.0 Hypertensive heart disease with heart failure; I50.32 Chronic diastolic (congestive) heart failure; I44.7 Left bundle-branch block, unspecified; I25.10 Atherosclerotic heart disease of native coronary artery without angina pectoris; E78.5 Hyperlipidemia, unspecified; Z95.5 Presence of coronary angioplasty implant and graft; Z99.81 Dependence on supplemental oxygen; Z87.891 Personal history of nicotine dependence; Z66 Do not resuscitate; Z87.01 Personal history of pneumonia (recurrent)
CPT/HCPCS: 97161-GP; 97165-GO; A9500; G0378; G8978-GP-CI; G8979-GP-CI; G8980-GP-CI; G8987-GO-CI; G8988-GO-CI; G8989-GO-CI; J1650; J2785

== ENCOUNTER → 2019-01-03 | Outpatient (CLI) | payer OTHER | LOC: FIMAGING 10:42 | PROVIDERS: ATTEND Family Medicine Geriatric Medicine | DX: K21.9 Gastro-esophageal reflux disease without esophagitis (principal); K22.8 Other specified diseases of esophagus | CPT/HCPCS: 92611-GN ==

== ENCOUNTER 2019-01-27 17:13 | Inpatient (IN) | payer OTHER ==
--- NOTE | 2019-01-27 17:35 | EDPHY ---
H & P Time Seen by Provider: 01/27/19 17:25 HPI/ROS: Chief complaint: Trouble breathing, hypoxia History of present illness: This is an 84-year-old female who was brought to the emergency department by EMS from her assisted living home at [facility] for trouble breathing and hypoxia. Patient had the onset of symptoms this morning. Staff reported that her pulse oximetry was in the 70s to 80s. She was given a nebulizer by staff but she states this made her feel worse. In talking with her further she reports she has had an ongoing cough for a number of weeks. She has seen a doctor about this, unclear etiology. She denies other potential cold symptoms including no fevers, no body aches. No chest pain. No pain or swelling in the legs. Review of systems: A 10 point review of systems was obtained and other than described above was negative - Personal History Current Tetanus/Diphtheria Vaccine: Yes Current Tetanus Diphtheria and Acellular Pertussis (TDAP): Yes - Medical/Surgical History Hx Asthma: Yes Hx Chronic Respiratory Disease: No Hx Diabetes: No Hx Cardiac Disease: Yes Hx Renal Disease: No Hx Cirrhosis: No Hx Alcoholism: No Hx HIV/AIDS: No Hx Splenectomy or Spleen Trauma: No Other PMH: heart stents/ ortho/ R/O COPD/ Hyst/APPY - Social History Smoking Status: Former smoker - Physical Exam Exam: General Appearance: Alert, unwell appearing. Eyes: Pupils equal and round no pallor or injection. ENT, Mouth: Mucous membranes moist. Respiratory: Wet sound and cough. Obvious difficulty breathing. Some rhonchi and wheezing with crackles in lung bases. Cardiovascular: Regular rate and rhythm. Gastrointestinal: Abdomen is soft and non tender, no masses, bowel sounds normal. Neurological: Alert. Strength and sensation intact and symmetrical. Skin: Warm and dry, no rashes. Musculoskeletal: Neck is supple non tender. Extremities are symmetrical, full range of motion. Psychiatric: Patient is oriented X 3, there is no agitation. Constitutional: Initial Vital Signs Temperature (C) 37.1 C 01/27/19 17:21 Heart Rate 90 01/27/19 17:21 Respiratory Rate 22 H 01/27/19 17:21 Blood Pressure 145/74 H 01/27/19 17:21 O2 Sat (%) 94 01/27/19 17:21 O2 (L/minute) 10 Allergies/Adverse Reactions: latex [Latex] Allergy (Intermediate, Verified 03/25/18 17:17) Other-Enter Comments Sulfa (Sulfonamide Antibiotics) Allergy (Mild, Verified 03/25/18 17:17) Other-Enter Comments zolpidem [From Ambien] Allergy (Verified 03/25/18 17:17) WALNUTS Allergy (Severe, Uncoded 03/25/18 17:17) Anaphylaxis dark greens Allergy (Mild, Uncoded 03/25/18 17:17) mucosal irritation CT CONTRAST Allergy (Uncoded 03/25/18 17:17) Home Medications: Medication Instructions Recorded Clopidogrel Bisulfate [Plavix (*)] 75 mg PO DAILY 08/13/13 ESCITALOPRAM OXALATE [LEXAPRO] 20 mg PO DAILY 08/13/13 Pantoprazole Sodium [Protonix 40mg 40 mg PO BIDMEAL 08/13/13 (*)] Polyethylene Glycol 3350 [Miralax 17 gm PO DAILY PRN #12 pkt 07/17/17 17 gm (*)] Atorvastatin Calcium [Lipitor 40 40 mg PO HS 11/04/17 mg (*)] Cetirizine [ZyrTEC 10 mg (*)] 10 mg PO DAILY PRN 11/04/17 Nitroglycerin [Nitrostat 0.4 mg 0.4 mg SL Q5M PRN 11/04/17 (*)] Acetaminophen [Tylenol ES 500 mg 1,000 mg PO TID 03/25/18 (*)] Albuterol [Proventil Inhaler HFA 2 puffs IH QID PRN 03/25/18 (*)] Cholecalciferol Vit D3 [Vitamin D3 50,000 unit PO Q30D 03/25/18 (*)] Furosemide [Lasix 40 MG (*)] 40 mg PO DAILY 03/25/18 Losartan Potassium [Cozaar 50 mg 100 mg PO HS 03/25/18 (*)] Metoprolol Succinate Xr [Toprol Xl 100 mg PO HS 03/25/18 50 mg (*)] Ondansetron HCl [Zofran] 4 mg PO Q6 PRN 03/25/18 Ranolazine [Ranexa] 500 mg PO BIDMEAL 03/25/18 Spironolactone [Aldactone 25 MG 25 mg PO DAILY #30 tab 04/04/18 (*)] Albuterol [Proventil Neb] 3 ml IH Q4H PRN 01/27/19 Budesonide/Formoterol 160/4.5 2 puffs IH BID 01/27/19 [Symbicort 160-4.5 Mcg Inh (*)] Diazepam 2 mg PO HS 01/27/19 Guaifenesin-Codeine Syrup 10 ml PO BID PRN 01/27/19 Hexylresorcinol [SORE THROAT 2 chris PO Q4H PRN 01/27/19 LOZENGE] Ipratropium 0.03% Nasal [Atrovent 2 sprays EACHNARE BID 01/27/19 0.03% Nasal (*)] Lidocaine HCl [Astero] 30 ml TP QID PRN 01/27/19 Lidocaine [Lidoderm] 1 each TP DAILY 01/27/19 Nystatin [Nystop] 1 brown TP TID PRN 01/27/19 amLODIPine BESYLATE [Amlodipine 5 mg PO BID 01/27/19 Besylate] guaiFENesin [Mucinex 600 MG (*)] 600 mg PO BID 01/27/19 Medical Decision Making - Diagnostics Imaging Results: Imaging Impressions Chest X-Ray 01/27/19 17:33 Impression: 1. Left lower lobe pneumonia. 2. Recommend follow-up until clear. Imaging: Discussed imaging studies w/ train caller Radiologist, I viewed and interpreted images myself ED Course/Re-evaluation: Patient is discussed at length with my secondary supervising physician Dr. Tommie Nunez. Patient presents to the emergency department for dyspnea and hypoxia. She has had an ongoing cough for number of weeks. Initial evaluation unclear if this is an asthma/COPD exacerbation versus heart failure. Radiology over read of chest x-ray was concerning for left lower lobe infiltrate. After this finding was noted and the fact that she had a white blood cell count a lactate and blood cultures were obtained and she was started on Levaquin. Although her lactate was elevated given her history of heart failure and elevated BNP fluid resuscitation was withheld. Repeat lactate did increase. At that time the hospitalist, Dr. Steven Main had seen the patient. He did recommend patient be given 1 L normal saline. Patient will be admitted to the hospitalist service for further care. The plan has been discussed with the patient and her family who voiced understanding and agreement with it. Differential Diagnosis: Included but not limited to COPD/asthma exacerbation, congestive heart failure, ACS, cardiac dysrhythmia, pulmonary infections - Data Points Laboratory Results: Laboratory Results 01/27/19 17:00 01/27/19 17:00 01/27/19 01/27/19 01/27/19 18:10 17:41 17:30 WBC RBC Hgb Hct MCV MCH MCHC RDW Plt Count MPV Neut % (Auto) Lymph % (Auto) Alcorn % (Auto) Eos % (Auto) Baso % (Auto) Nucleat RBC Rel Count Absolute Neuts (auto) Absolute Lymphs (auto) Absolute Monos (auto) Absolute Eos (auto) Absolute Basos (auto) Absolute Nucleated RBC Immature Gran % Immature Gran # Sodium Potassium Chloride Carbon Dioxide Anion Gap BUN Creatinine Estimated GFR Glucose Calcium POC Troponin I 0.04 ng/mL ng/mL (0.00-0.08) Troponin I REJ NT-Pro-B Natriuret Pep Nasal Influenza A PCR NEGATIVE FOR FLU A (NEGATIVE) Nasal Influenza B PCR NEGATIVE FOR FLU B (NEGATIVE) 01/27/19 01/27/19 17:00 17:00 WBC 14.24 10^3/uL H 10^3/uL (3.80-9.50) RBC 3.93 10^6/uL L 10^6/uL (4.18-5.33) Hgb 12.3 g/dL L g/dL (12.6-16.3) Hct 37.0 % L % (38.0-47.0) MCV 94.1 fL fL (81.5-99.8) MCH 31.3 pg pg (27.9-34.1) MCHC 33.2 g/dL g/dL (32.4-36.7) RDW 13.0 % % (11.5-15.2) Plt Count 312 10^3/uL 10^3/uL (150-400) MPV 9.6 fL fL (8.7-11.7) Neut % (Auto) 81.2 % H % (39.3-74.2) Lymph % (Auto) 9.0 % L % (15.0-45.0) Alcorn % (Auto) 7.2 % % (4.5-13.0) Eos % (Auto) 1.9 % % (0.6-7.6) Baso % (Auto) 0.4 % % (0.3-1.7) Nucleat RBC Rel Count 0.0 % % (0.0-0.2) Absolute Neuts (auto) 11.57 10^3/uL H 10^3/uL (1.70-6.50) Absolute Lymphs (auto) 1.28 10^3/uL 10^3/uL (1.00-3.00) Absolute Monos (auto) 1.02 10^3/uL H 10^3/uL (0.30-0.80) Absolute Eos (auto) 0.27 10^3/uL 10^3/uL (0.03-0.40) Absolute Basos (auto) 0.06 10^3/uL 10^3/uL (0.02-0.10) Absolute Nucleated RBC 0.00 10^3/uL 10^3/uL (0-0.01) Immature Gran % 0.3 % % (0.0-1.1) Immature Gran # 0.04 10^3/uL 10^3/uL (0.00-0.10) Sodium 134 mEq/L L mEq/L (135-145) Potassium 5.5 mEq/L H mEq/L (3.5-5.2) Chloride 102 mEq/L mEq/L (97-110) Carbon Dioxide 20 mEq/l L mEq/l (22-31) Anion Gap 12 mEq/L mEq/L (6-14) BUN 46 mg/dL H mg/dL (7-23) Creatinine 1.4 mg/dL H mg/dL (0.6-1.0) Estimated GFR 36 Glucose 132 mg/dL H mg/dL (70-100) Calcium 10.4 mg/dL mg/dL (8.5-10.4) POC Troponin I Troponin I NT-Pro-B Natriuret Pep 1300 pg/mL H pg/mL (0-450) Nasal Influenza A PCR Nasal Influenza B PCR Medications Given: Acetaminophen (Tylenol) 1,000 mg PO TID GAVIN Stop: 07/26/19 21:59 Last Admin: 01/27/19 23:06 Dose: 1,000 mg Albuterol (Proventil Neb) 3 ml IH Q4H GAVIN Stop: 07/26/19 19:29 Last Admin: 03/15/19 23:34 Dose: 3 ml Amlodipine Besylate (Norvasc) 5 mg PO BID GAVIN Stop: 07/26/19 20:59 Last Admin: 01/27/19 23:07 Dose: 5 mg Atorvastatin Calcium (Lipitor) 40 mg PO HS GAVIN Stop: 07/26/19 20:59 Last Admin: 01/27/19 23:07 Dose: 40 mg Budesonide/Formoterol Fumarate (Symbicort 160-4.5 Mcg Inhaler) 2 puffs IH BID GAVIN Stop: 07/26/19 20:59 Last Admin: 01/27/19 23:35 Dose: 2 puffs Diazepam (Valium) 2 mg PO HS GAVIN Stop: 07/26/19 20:59 Last Admin: 01/27/19 23:06 Dose: 2 mg Guaifenesin (Mucinex) 600 mg PO BID GAVIN Stop: 07/26/19 20:59 Last Admin: 01/27/19 23:06 Dose: 600 mg Guaifenesin/Codeine Phosphate (Robitussin Ac) 10 ml PO BID PRN PRN Reason: Cough, Mild Stop: 07/26/19 19:11 Last Admin: 01/27/19 23:11 Dose: 10 ml Losartan Potassium (Cozaar) 100 mg PO HS GAVIN Stop: 07/26/19 20:59 Last Admin: 01/27/19 23:07 Dose: 100 mg Metoprolol Succinate (Toprol Xl) 100 mg PO HS GAVIN Stop: 07/26/19 20:59 Last Admin: 01/27/19 23:07 Dose: 100 mg Miscellaneous Information (Patch Removal) 1 ea TD DAILY21 GAVIN Stop: 07/26/19 20:59 Last Admin: 01/27/19 23:13 Dose: 1 ea Prednisone (Prednisone) 60 mg PO DAILY GAVIN Stop: 07/26/19 19:29 Last Admin: 01/27/19 19:45 Dose: 60 mg Discontinued Medications Levofloxacin/Dextrose (Levaquin 750 Mg (Premix)) 150 mls @ 100 mls/hr IV EDNOW ONE PRN Reason: Protocol Stop: 01/27/19 20:04 Last Admin: 01/27/19 18:52 Dose: 150 mls Sodium Chloride (Ns) 1,000 mls @ 0 mls/hr IV EDNOW ONE; Wide Open PRN Reason: Protocol Stop: 01/27/19 20:42 Last Admin: 01/27/19 20:49 Dose: 1,000 mls Point of Care Test Results: Chemistry 01/27/19 17:41 POC Troponin I 0.04 ng/mL ng/mL (0.00-0.08) Departure - Departure Disposition: [facility] Inpatient Acute Clinical Impression: Hypoxia Dyspnea Qualifiers: Dyspnea type: unspecified Qualified Code(s): R06.00 - Dyspnea, unspecified Condition: Fair
[2019-01-27 17:39] LABS: PLATELET COUNT 312 10^3/uL (150-400)
[2019-01-27] MEDS ORDERED: NITROGLYCERIN 0.4 MG BTL SL PRN (19:12)
[2019-01-27] MEDS ORDERED: CETIRIZINE 10 MG TAB PO PRN (19:12)
[2019-01-27] MEDS ORDERED: [UNRECOGNIZED DRUG - OTHER] PO PRN (19:12)
[2019-01-27] MEDS ORDERED: LIDOCAINE HCL TP PRN (19:12)
[2019-01-27] MEDS ORDERED: ALBUTEROL 60 PUFFS/8 GM MDI IH PRN (19:12)
[2019-01-27] MEDS ORDERED: POLYETHYLENE GLYCOL 3350 17 GM PKT PO PRN (19:12)
[2019-01-27] MEDS ORDERED: NYSTATIN POWDER 15 GM BTL TP PRN (19:12)
[2019-01-27] MEDS ORDERED: ONDANSETRON 4 MG/2 ML VIAL IVP PRN (19:19)
[2019-01-27] MEDS ORDERED: ONDANSETRON DISINTEGRATING 4 MG TAB PO PRN (19:19)
[2019-01-27] MEDS ORDERED: ACETAMINOPHEN 325 MG TAB PO PRN (19:19)
[2019-01-27] MEDS: predniSONE 20 MG TAB PO SCH (19:45)
--- NOTE | 2019-01-27 19:46 | CPEKG ---
Test Reason : OPEN Blood Pressure : / mmHG Vent. Rate : 105 BPM Atrial Rate : 105 BPM P-R Int : 192 ms QRS Dur : 127 ms QT Int : 372 ms P-R-T Axes : 076 -33 134 degrees QTc Int : 492 ms Sinus tachycardia Probable left atrial enlargement Left bundle branch block Inferior infarct, acute (RCA) Probable RV involvement, suggest recording right precordial leads Confirmed by Tommie Nunez [id number] on 01/27/2019 7:46:05 PM Referred By: Tommie Nunez Confirmed By:Tommie Nunez
[2019-01-27] MEDS: ALBUTEROL 3 ML DEYVIAL IH SCH ×2 (19:56→23:34)
--- NOTE | 2019-01-27 20:35 | GHP ---
[f rep st] HISTORY AND PHYSICAL DATE OF ADMISSION: 01/27/2019 The patient is an 84-year-old female with a history of diastolic heart failure, asthma with chronic c ough, who presents to the hospital with increased work of breathing and worsening cough productive of clear to correa sputum as well as low pulse ox sats into the high 70s and low 80s, seen at [facility] ER. She was in the high 80s here. She is chronically on oxygen while here. She has not had fever or chills. She has not had sputum. She has a history of a negative swallow test, although I do not have those results available to me. She has not noticed weight gain in the acute period of time. e does acknowledge some orthopnea. She is on chronic diuretics, and her creatinine appears to be greater than normal. She has not had c hest pain. Regarding her coronary disease, she had a stress test in October of 2017, that showed some apical is chemia without revascularization. She was started on Ranexa at that time. It is not clear that has helped. REVIEW OF SYSTEMS: Complete 10-point review of systems conducted and negative except as noted in the HPI. PAST MEDICAL HISTORY: Hypertension, reactive airway disease with chronic cough, coronary artery dise ase, hyperlipidemia, diastolic heart failure. ALLERGIES: Latex, sulfa, Ambien, walnuts. MEDICATIONS: Spironolactone, ranolazine, MiraLAX, pantoprazole, nystatin, nitroglycerin, Toprol-XL 5 0, losartan, lidocaine patch, ipratropium nasal spray, sore throat lozenges, guaifenesin codeine syru p, guaifenesin, furosemide 40 daily, escitalopram, diazepam 2 h.s., clopidogrel, cetirizine, Symbicor t, atorvastatin, amlodipine, albuterol, Tylenol, vitamin D3. SOCIAL HISTORY: She is a nonsmoker. Lives at [facility]. Used to live up [facility]. FAMILY HISTORY: Reviewed and unremarkable. PHYSICAL EXAM: PRESENTING VITALS: Temperature 37.1, blood pressure 145/74, pulse 90, breathing 22 t imes a minute, 94% on 10 L. She is on less oxygen now. GENERAL: No acute distress. Frequent cough . HEENT: Sclerae anicteric. Oropharynx clear. Mucous membranes moist. NECK: Supple without lymp hadenopathy. It is difficult to assess JVD given her habitus. LUNGS: Show cough with any deep insp iration. There are crackles at the left base that are not heard at the right. ABDOMEN: Soft, obese , nontender, nondistended. LOWER EXTREMITIES: No edema. Calves nontender. SKIN: Without rash. N EUROLOGIC: Nonfocal. LABORATORY: Sodium is 134, potassium 5.5, chloride 102, bicarb 20, BUN 46, creatinine 1.4, glucose o f 132. BNP is 1300 which is a high value for her. White count is 14, hematocrit 37, platelets are 3 12,000. She does have somewhat of a chronic leukocytosis. Chest x-ray interpreted by me is difficul t to interpret, but the radiologist does reveal a left lower lobe pneumonia. EKG shows sinus tach at 100 with left bundle-branch block pattern which is not new. I have discussed the case with IRISH Tyler, in the emergency department. ASSESSMENT AND PLAN: 84-year-old female presents with [id number] hypoxemic respiratory failure , likely left lower lobe pneumonia. 1. Left lower lobe pneumonia. I am going to treat this as a community-acquired pneumonia with levof loxacin. It is subtle on imaging, but she does have concomitant crackles and a leukocytosis, and I d o not believe she is in failure. 2. Chronic cough with wheezing. I will continue her home inhalers and nebulizers. I am going to ad d 60 of prednisone. I would recommend a 4 or 5 day burst. 3. Diastolic heart failure. I think she is euvolemic to even dry as evidenced by her elevated BUN a nd creatinine greater than baseline, although it has been a couple of years since we have values, or at least a year. I will follow her response. I think at this point in time, her elevated BNP has to be considered an outlying piece of data. 4. Hypertension. Continue her medicines. 5. Kidney disease. We will follow her creatinine tomorrow. If it continues to rise, she may warran t some fluids and holding her diuretics. 6. Code, full. DISPOSITION: Inpatient status. /[id number]/MODL
[2019-01-27] MEDS ORDERED: NS 1,000 ML IV ONE (20:41)
[2019-01-27] MEDS ORDERED: LOSARTAN POTASSIUM 50 MG TAB PO SCH (21:00)
[2019-01-27] MEDS: guaiFENesin 600 MG TAB.ER PO SCH (23:06)
[2019-01-27] MEDS: DIAZEPAM 2 MG TAB PO SCH (23:06)
[2019-01-27] MEDS: ACETAMINOPHEN 500 MG TAB PO SCH (23:06)
[2019-01-27] MEDS: amLODIPine BESYLATE 5 MG TAB PO SCH (23:07)
[2019-01-27] MEDS: ATORVASTATIN CALCIUM 40 MG TAB PO SCH (23:07)
[2019-01-27] MEDS: METOPROLOL SUCCINATE XR 100 MG TAB PO SCH (23:07)
[2019-01-27] MEDS: guaiFENesin/CODEINE PHOS 10 ML UDCUP PO PRN (23:11)
[2019-01-27] MEDS: PATCH REMOVAL 1 EA PATCH TD SCH (23:13)
[2019-01-27] MEDS: BUDESONIDE/FORMOTEROL 160/4.5 60 PUFFS/MDI IH SCH (23:35)
[2019-01-28] MEDS: ALBUTEROL 3 ML DEYVIAL IH SCH ×5 (02:51→22:46)
[2019-01-28] MEDS: IPRATROPIUM 0.03% NASAL SPRAY EACHNARE SCH ×2 (05:28→11:33)
[2019-01-28 05:33] LABS: PLATELET COUNT 263 10^3/uL (150-400)
--- NOTE | 2019-01-28 07:18 | PDMN ---
Medical Necessity Medical necessity: Pt meets IP criteria per & MCG M-282; est los >2 mn for eval/tx of pneumonia w/tachycardia & acute on chronic hypoxemic respiratory failure; admit for further monitoring, IV abx & respiratory supportive care; comorbid advanced age, heart failure, CAD, chronic cough, kidney disease; per H& P & order 01/27/19
[2019-01-28] MEDS: ENOXAPARIN 30 MG/0.3 ML SYR SC SCH (07:26)
[2019-01-28] MEDS: guaiFENesin/CODEINE PHOS 10 ML UDCUP PO PRN ×2 (07:26→20:32)
[2019-01-28] MEDS: RANOLAZINE 500 MG TAB.ER PO SCH ×2 (07:27→17:40)
[2019-01-28] MEDS: ESCITALOPRAM OXALATE 10 MG TAB PO SCH (07:27)
[2019-01-28] MEDS: PANTOPRAZOLE SODIUM 40 MG TAB PO SCH ×2 (07:27→17:40)
[2019-01-28] MEDS: ACETAMINOPHEN 500 MG TAB PO SCH ×3 (07:27→20:32)
[2019-01-28] MEDS: guaiFENesin 600 MG TAB.ER PO SCH (07:27)
[2019-01-28] MEDS: CLOPIDOGREL BISULFATE 75 MG TAB PO SCH (07:28)
[2019-01-28] MEDS: amLODIPine BESYLATE 5 MG TAB PO SCH ×2 (07:28→20:31)
[2019-01-28] MEDS: LIDOCAINE 4%/MENTHOL 1% PATCH TD SCH (07:31)
[2019-01-28] MEDS: predniSONE 20 MG TAB PO SCH (07:31)
[2019-01-28] MEDS: BUDESONIDE/FORMOTEROL 160/4.5 60 PUFFS/MDI IH SCH ×2 (08:16→20:44)
[2019-01-28] MEDS ORDERED: SPIRONOLACTONE 25 MG TAB PO SCH (09:00)
[2019-01-28] MEDS ORDERED: FUROSEMIDE 40 MG TAB PO SCH (09:00)
[2019-01-28] MEDS ORDERED: LIDOCAINE 1% 300 MG/30 ML SDV ONE (10:44)
[2019-01-28] MEDS ORDERED: LIDOCAINE 1% 300 MG/30 ML SDV IF ONE (11:00)
[2019-01-28] MEDS: BENZONATATE 100 MG CAP PO PRN ×2 (11:47→20:31)
--- NOTE | 2019-01-28 13:43 | GCON ---
[f rep st] CONSULTATION RECREATION INSTRUCTOR CONSULTATION. REASON FOR ADMISSION: Asthma, acute respiratory distress, severe cough. I was asked to the patient by Dr. Steven Main. The patient is a very pleasant 84-year-old white f emale with a very extensive past medical history including allergic rhinitis, angina, anxiety, aortic stenosis, chronic back pain, coronary artery disease, congestive heart failure, depression, fatigue, gastroesophageal reflux disease, hypertension, hypercalcemia, hypercholesterolemia, sleep apnea, res tless legs syndrome, and vitamin D deficiency. She presented the emergency room with increasing tiffani thlessness and cough. She was also found to be markedly hypoxemic, though she is on chronic oxygen. She was seen in the emergency room, subsequently admitted to the intensive care unit. The patient i s difficult to discuss anything with as she is coughing profusely. She sees Dr. Dima Springer in the office for her asthma. REVIEW OF SYSTEMS: Ten-point review of systems is performed and negative except for what is listed i n HPI. PAST MEDICAL HISTORY: Again, significant for coronary artery disease, asthma, hypertension, congesti ve heart failure, obstructive sleep apnea, gastroesophageal reflux disease, hyperlipidemia, hyperchol esterolemia, aortic stenosis. ALLERGIES: To sulfa, Ambien, latex. SOCIAL HISTORY: Lifelong nonsmoker. No significant alcohol use. She resides at [facility] he is . She is a do not resuscitate. MEDICATIONS: At home include Folbee, Lasix, Lexapro, nystatin, pantoprazole, Plavix, Rhinocort, Aste ro, albuterol, atorvastatin, cetirizine, Virtussin AC, Cozaar, Dulcolax, Pepcid, DuoNeb, losartan, me toprolol, MiraLAX, nitroglycerin, Norvasc, Ranexa, spironolactone, Symbicort, and tramadol. FAMILY HISTORY: Noncontributory. PHYSICAL EXAM: VITAL SIGNS: Blood pressure 117/57, pulse is 72, respirations 21, temperature 36.4, oxygen saturation 96% on 6 L. GENERAL: She is a moderately overweight, elderly white female who is in moderate respiratory distress. HEENT: Eyes PERRL, EOMI. Throat shows no erythema, no tonsillar hypertrophy. NECK: Supple. No cervical adenopathy. HEART: Tachycardic, regular rate and rhythm w ith a 2/6 systolic murmur, left sternal border, without radiation. LUNGS: Diminished breath sounds, significant prolongation of expiratory phase with slight end-expiratory wheeze. She is coughing pro fusely. ABDOMEN: Soft, nontender. Bowel sounds are present in all 4 quadrants. EXTREMITIES: No c lubbing, cyanosis, or edema. LABORATORIES: White count is 8.9, hemoglobin 10, hematocrit 34, platelet count is 263. Sodium 135, potassium 5.1, chloride 106, CO2 is 20, BUN 41, creatinine 1.5, glucose is 175. Influenza A and B ar e negative. Respiratory PCR was positive for human rhinovirus. IMPRESSION: 1. Rhinovirus lung infection. 2. Severe cough. 3. Acute hypoxemic respiratory failure. 4. Asthma with acute exacerbation. 5. Congestive heart failure. 6. Hypertension. 7. Obstructive sleep apnea. 8. Hyperglycemia. 9. . 10. Coronary artery disease. 11. Aortic stenosis. RECOMMENDATIONS: 1. We will increase IV steroids to Solu-Medrol 125 q.6h. 2. Aggressive cough control. To this regard, we will start Robitussin DM as well as lidocaine nebul ized treatment in addition to her DuoNeb. 3. BiPAP as needed. 4. Agree with current antibiotic coverage. 5. Will address advance directives, as on her outpatient medical record she is listed as do not resu scitate. Thank you very much for allowing me to participate in the care of this patient. We will continue to follow along with you. /[id number]/MODL
[2019-01-28] MEDS: GUAIFENESIN/DM 10 ML UDCUP PO PRN ×2 (14:36→20:32)
--- NOTE | 2019-01-28 15:21 | HOSPPROG ---
Hospitalist Progress Note Assessment/Plan: 84 yo F with hx of diastolic heart failure, asthma presenting with acute on chronic hypoxia with e/o LLL pna and rhino/enterovirus # acute on chronic hypoxic respiratory failure: in setting of human rhino/ enterovirus as well as asthma exacerbation and LLL PNA. Chronically on 3-4L and presented with o2 sats in 70-80s on her usual level of O2. Today has been on 5L of oxygen with o2 sats in the 90s. # LLL PNA: with known viral infection as next but possible concurrent bacterial infection, started on levofloxacin and will continue for now, blood cultures pending # human rhinovirus/enterovirus: contributing to his acute presentation, supportive care # acute asthma exacerbation: in the setting of viral infection and pna, continue IV steroids, nebs, continues to have severe cough and trialing inhaled lidocaine for cough suppression, appreciate pulmonary consult # chronic diastolic heart failure: patient does not appear grossly volume overloaded, BNP mildly elevated as was f/u troponin, will get repeat trop # CAD: without c/o chest pain, trops slightly elevated as above, continue op medications # miguel on ckd: with baseline of 1.2 and currently at 1.5 in the setting of acute infection and relative hypotension, will hold losartan and lasix given low bp and miguel # aortic stenosis: moderate, followed by cardiology, no e/o acute decompensation currently # HTN: BP has been slightly low on usual home meds of losartan, lasix, amlodipine, aldactone and metoprolol--holding losartan, aldactone and lasix for now as above # hyperglycemia: in the setting of being on steroids, last A1c of 6.5, will continue to monitor # IP status, will require > 48 hours stay for eval/mgmt of above Patient new to my care. Old records reviewed adn summarized as above. Care plan reviewed with Dr. Walker and multidiscplinary team on rounds. Subjective: no signficnat overnight events, patient continues to have significant cough and sob with exertion but otherwise doing better on increased o2 Objective: Vital Signs Temp Pulse Resp BP Pulse Ox 36.4 C 76 18 95/60 L 93 01/28/19 11:31 01/28/19 14:00 01/28/19 14:00 01/28/19 14:00 01/28/19 14:00 Laboratory Results 01/28/19 05:10 01/28/19 05:10 01/27/19 01/28/19 01/29/19 05:59 05:59 05:59 Intake Total 1300 Output Total 800 Balance 500 chronically ill appearing anicteric op clear rrr no mrg dec bs throughout, occasional wheeze, left basilar rales, increased wob soft nt nd no cce warm dry well perfused oriented appropirate ICD10 Worksheet Patient Problems: Problems Problem Status Onset Severe sepsis Acute Pneumonia Acute New onset left bundle branch block (LBBB) Acute Aortic stenosis Acute Dyspnea Acute Hypoxia Acute chronic disease [facility]/transitional care Acute Primary localized osteoarthrosis, lower leg Chronic Chest pain Acute Hypertension Acute Unstable angina Acute
[2019-01-28] MEDS: LIDOCAINE 1% 300 MG/30 ML SDV MISC PRN (16:50)
[2019-01-28] MEDS: ACETYLCYSTEINE 10% IH/PO 4 ML VIAL IH SCH ×2 (16:50→22:46)
--- NOTE | 2019-01-28 17:17 | ASMTCMCOM ---
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 DC Plan: TBD Date Signed: 01/28/2019 05:16 PM Electronically Signed By:Alessandra Damon RN
--- NOTE | 2019-01-28 17:26 | ASMTCMCOM ---
CM Note CM Note Notes: Disregard previous note, wrong pt. This pt lives at [facility], has local son and dtr in law. Dc needs unclear, CM w/f DC Plan: TBD Date Signed: 01/28/2019 05:25 PM Electronically Signed By:Alessandra Damon RN
[2019-01-28] MEDS: methylPREDNISolone SOD SUCC 125 MG/2 ML VIAL IVP SCH (17:40)
[2019-01-28] MEDS: ATORVASTATIN CALCIUM 40 MG TAB PO SCH (20:31)
[2019-01-28] MEDS: DIAZEPAM 2 MG TAB PO SCH (20:31)
[2019-01-28] MEDS: METOPROLOL SUCCINATE XR 100 MG TAB PO SCH (20:31)
[2019-01-28] MEDS: PATCH REMOVAL 1 EA PATCH TD SCH (20:35)
[2019-01-29] MEDS: IPRATROPIUM 0.03% NASAL SPRAY EACHNARE SCH ×3 (00:26→21:01)
[2019-01-29] MEDS: methylPREDNISolone SOD SUCC 125 MG/2 ML VIAL IVP SCH ×2 (00:28→05:47)
[2019-01-29] MEDS: BENZONATATE 100 MG CAP PO PRN ×4 (01:37→20:01)
[2019-01-29] MEDS: GUAIFENESIN/DM 10 ML UDCUP PO PRN (01:37)
[2019-01-29] MEDS: ALBUTEROL 3 ML DEYVIAL IH SCH ×4 (05:37→22:26)
[2019-01-29] MEDS: ACETYLCYSTEINE 10% IH/PO 4 ML VIAL IH SCH ×4 (05:37→22:28)
[2019-01-29] MEDS: LIDOCAINE 1% 300 MG/30 ML SDV MISC PRN ×2 (05:38→22:27)
[2019-01-29 06:03] LABS: PLATELET COUNT 278 10^3/uL (150-400)
[2019-01-29] MEDS: guaiFENesin/CODEINE PHOS 10 ML UDCUP PO PRN ×2 (08:05→20:04)
[2019-01-29] MEDS: ACETAMINOPHEN 500 MG TAB PO SCH ×3 (08:06→21:04)
[2019-01-29] MEDS: CLOPIDOGREL BISULFATE 75 MG TAB PO SCH (08:07)
[2019-01-29] MEDS: amLODIPine BESYLATE 5 MG TAB PO SCH ×2 (08:07→20:03)
[2019-01-29] MEDS: PANTOPRAZOLE SODIUM 40 MG TAB PO SCH ×2 (08:07→17:08)
[2019-01-29] MEDS: ESCITALOPRAM OXALATE 10 MG TAB PO SCH (08:07)
[2019-01-29] MEDS: ENOXAPARIN 30 MG/0.3 ML SYR SC SCH (08:07)
[2019-01-29] MEDS: RANOLAZINE 500 MG TAB.ER PO SCH ×2 (08:07→17:08)
[2019-01-29] MEDS: LIDOCAINE 4%/MENTHOL 1% PATCH TD SCH (08:08)
[2019-01-29] MEDS ORDERED: D50W 25 GM/50 ML SYR IVP PRN (10:00)
--- NOTE | 2019-01-29 10:38 | ECHO ---
[email or web address] [address] [address] Main: [phone] Echocardiography Examination Transthoracic Name: ALBAN OLVERA MR#: [id number] Study Date: 01/28/2019 Study Time: 01:57 PM Date of : 1935 Age: 84 year(s) Height: 154.9 cm (61 in.) Weight: 85.73 kg (189 lb.) BSA: 1.84 m2 Gender: Female Examination: Echo Contrast: Image Quality: Adequate Rhythm: Normal sinus rhythm Heart Rate: 76 bpm BP: 104 mmHg/49 mmHg Indication: CHF Procedure Staff Referring Physician: Area Manager: Reading Physician: Nino Zhu MD Requesting Provider: Indication: CHF Measurements Chambers AV/MV Label Value Normal Value Label Value Normal Value EF lower range (%) 60 % AV PGmax 60 mmHg EF upper range (%) 70 % AV PGmean 39 mmHg IVSd, 2D 1.3 cm (0.6cm - 1.1cm) AV Vmax 3.88 m/s LVDd, 2D 3.7 cm (3.9cm - 5.3cm) VALENTE (continuity eq. 1 cm2 LVDs, 2D 2.3 cm (2.1cm - 4cm) Vmax) LVEF, 2D 69 % (54% - 74%) VALENTE D (continuity eq. 0.9 cm2 LVOT PGmax 7 mmHg VTI) LVOT PGmean 4 mmHg MV A Vmax 1.62 m/s LVOT Vmax 1.35 m/s (0.7m/s - 1.1m/s) MV E' lateral 0.09 m/s LVOT Vmean 0.93 m/s MV E' mean 0.06 m/s LVOTd 1.9 cm (1.8cm - 2cm) MV E' septal 0.04 m/s LVPWd, 2D 1.4 cm MV E Vmax 1.19 m/s RVDd, 2D 2.3 cm (1.9cm - 3.8cm) MV E/A 0.73 LA Area, A2C 16.4 cm2 (0cm2 - 20cm2) MV E/E' lateral 13.7 LA Volume, A2C 42 ml (22ml - 52ml) MV E/E' mean 18.31 LA Volume, A4C 55 ml (22ml - 52ml) MV E/E' septal 33 (0.45 - 1.25) LA Volume, BP 49 ml (22ml - 52ml) MV PGmax 15 mmHg LAD Index, 2D 1.79 cm/m2 MV PGmean 5 mmHg LADs, 2D 3.3 cm (2.7cm - 3.8cm) MV VTI 54.9 cm LAESV index, BP 26.6 ml/m2 MVA D (continuity eq.) 1.8 cm2 Patient: ALBAN OLVERA Study Date: 01/28/2019 Page 1 of 3 01:57 PM Additional Vessels TV/PV Label Value Normal Value Label Value Normal Value AoAsc 2.5 cm PV PGmax 7 mmHg AoRoot, MM 2.1 cm (2.2cm - 3.7cm) PV Vmax, Caliper 1.36 m/s (0.6m/s - 0.9m/s) Conclusions Left Ventricle: Left ventricle is normal in size. EF range is estimated at 60 % - 70 %. There is mild concentric left ventricular hypertrophy. There is paradoxic septal motion suggestive of bundle branch block, paced cardiac rhythm, or prior cardiac surgery. Mitral Valve: Trivial mitral regurgitation. Aortic Valve: There is moderate to severe aortic stenosis. Aortic leaflets exhibit moderate to marked calcification. Findings Left Ventricle: Left ventricle is normal in size. Normal global systolic left ventricular function. The ejection fraction, measured by 2D, is 69 %. EF range is estimated at 60 % - 70 %. There is mild concentric left ventricular hypertrophy. There is paradoxic septal motion suggestive of bundle branch block, paced cardiac rhythm, or prior cardiac surgery. Cannot determine LAP and Diastolic Dysfunction Grade. Right Ventricle: Normal size right ventricle. Right ventricular systolic function is normal. Left Atrium: The left atrium is normal in size. Left Atrium Measurements LAESV index, MOD4 is 29.9 ml/m2. LAESV index, BP is 26.6 ml/m2. Right Atrium: The right atrium is normal in size. Mitral Valve: Mitral valve appears structurally normal. Trivial mitral regurgitation. No mitral valve stenosis. There is mild mitral calcification. Aortic Valve: No aortic valve regurgitation. There is moderate to severe aortic stenosis. Aortic leaflets exhibit moderate to marked calcification. The aortic valve is trileaflet. Tricuspid Valve: Trivial tricuspid regurgitation. Pulmonic Valve: No pulmonic valve regurgitation is evident. Aorta: The aorta is normal. The aortic root size in M-mode measures 2.1 cm. The ascending aorta measures 2.5 cm. Aorta Measurements AoRoot, MM is 2.1 cm. Pericardium: A pericardial fat pad is present. No pericardial effusion. Exam Details Patient: ALBAN OLVERA Study Date: 01/28/2019 Page 2 of 3 01:57 PM Procedure Ordered: Echo Procedure Status: Routine study Image Quality: Adequate Facility Location: Cardiac Echo 1 (No Signature Object) Patient: ALBAN OLVERA Study Date: 01/28/2019 Page 3 of 3 01:57 PM [id number]
[2019-01-29] MEDS: BUDESONIDE/FORMOTEROL 160/4.5 60 PUFFS/MDI IH SCH ×2 (11:02→21:01)
--- NOTE | 2019-01-29 11:25 | PDINTPN ---
Chief Deputy Progress Note Assessment/Plan: Assessment/plan: * Acute hypoxemic respiratory failure * Rhino virus * Severe cough-improved * Asthma -With acute exacerbation-improved -will change to p.o. Prednisone * Congestive heart failure * Aortic stenosis-moderate to severe by echocardiogram * Obstructive sleep apnea * Coronary artery disease * PT/OT * Disposition-will transfer to medical surgical floor Subjective: Sitting up in chair. Resting comfortably. Cough is markedly improved. Less breathless and has better energy. Objective: Vital Signs Temp Pulse Resp BP Pulse Ox 37.0 C 69 20 145/65 H 94 01/29/19 08:00 01/29/19 08:00 01/29/19 08:00 01/29/19 08:00 01/29/19 08:00 Laboratory Results 01/29/19 05:40 01/29/19 05:40 01/28/19 01/29/19 01/30/19 05:59 05:59 05:59 Intake Total 1300 1080 Output Total 800 600 Balance 500 480 - Time Spent With Patient Time Spent With Patient: 35 min of time spent with patient, over 1/2 involved with coordination of care or counseling. Case discussed with Nursing and Respiratory therapy Physical Exam - Physical Exam General Appearance: alert, no apparent distress EENT: PERRL/EOMI Neck: non-tender Respiratory: wheezing (Slight), prolonged expiration, No respiratory distress Cardiac/Chest: normal peripheral pulses, regular rate, rhythm, systolic murmur Abdomen: normal bowel sounds, non-tender, soft Pelvic Exam: deferred Rectal: deferred Skin: warm/dry Extremities: non-tender Neuro/Psych: alert, normal mood/affect, oriented x 3 ICD10 Worksheet Patient Problems: Problems Problem Status Onset Dyspnea Acute Hypoxia Acute Aortic stenosis Acute Chest pain Acute Hypertension Acute New onset left bundle branch block (LBBB) Acute Pneumonia Acute Severe sepsis Acute Unstable angina Acute chronic disease mgmt/transitional care Acute Primary localized osteoarthrosis, lower leg Chronic
[2019-01-29] MEDS: predniSONE 20 MG TAB PO SCH (13:32)
[2019-01-29] MEDS: INSULIN LISPRO 100 UNIT/ML SC SCH ×2 (13:32→18:09)
[2019-01-29] MEDS ORDERED: CEPACOL LOZENGE PO ONE (13:45)
--- NOTE | 2019-01-29 13:56 | HOSPPROG ---
Hospitalist Progress Note Assessment/Plan: 84 yo F with hx of diastolic heart failure, asthma presenting with acute on chronic hypoxia with e/o LLL pna and rhino/enterovirus # acute on chronic hypoxic respiratory failure: in setting of human rhino/ enterovirus as well as asthma exacerbation and LLL PNA. Chronically on 3-4L and presented with o2 sats in 70-80s on her usual level of O2. Improving overall thought not quite back to baseline # LLL PNA: with known viral infection as next but possible concurrent bacterial infection, started on levofloxacin and will continue for now, blood cultures ngtd # human rhinovirus/enterovirus: contributing to her acute presentation, supportive care # acute asthma exacerbation: in the setting of viral infection and pna, improving, transitioned to oral steroids today, continue nebs # chronic diastolic heart failure: with slight elevation in trop # CAD: without c/o chest pain, trops slightly elevated as above, continue op medications # miguel on ckd: with baseline of 1.2, elevated on arrival in the setting of acute infection and relative hypotension, holding losartan and lasix given low bp and miguel # aortic stenosis: moderate to severe on echo from this stay, followed by cardiology, no e/o acute decompensation currently # HTN: BP has been slightly low on usual home meds of losartan, lasix, amlodipine, aldactone and metoprolol--holding losartan, aldactone and lasix for now as above, can resume in a day or 2 if creatinine continues to improve and bp warrants it # hyperglycemia: in the setting of being on steroids, last A1c of 6.5 several years ago, will repeat a1c # IP status, will require > 48 hours stay for eval/mgmt of above Care plan reviewed with Dr. Walker and multidiscplinary team on rounds. Subjective: no significant overnight events, patient notes she is feeling somewhat better again today but not yet back to her usual baseline Objective: Vital Signs Temp Pulse Resp BP Pulse Ox 36.4 C 73 18 103/46 L 92 01/29/19 11:49 01/29/19 11:49 01/29/19 11:49 01/29/19 11:49 01/29/19 13:47 Laboratory Results 01/29/19 05:40 01/29/19 05:40 01/28/19 01/29/19 01/30/19 05:59 05:59 05:59 Intake Total 1300 1080 Output Total 800 600 Balance 500 480 chronically ill appearing anicteric op clear rrr no mrg dec bs throughout, occasional wheeze soft nt nd no cce warm dry well perfused oriented appropirate ICD10 Worksheet Patient Problems: Problems Problem Status Onset Dyspnea Acute Hypoxia Acute Aortic stenosis Acute Chest pain Acute Hypertension Acute New onset left bundle branch block (LBBB) Acute Pneumonia Acute Severe sepsis Acute Unstable angina Acute chronic disease mgmt/transitional care Acute Primary localized osteoarthrosis, lower leg Chronic
[2019-01-29] MEDS ORDERED: CEPACOL LOZENGE PO PRN (17:27)
[2019-01-29] MEDS: ATORVASTATIN CALCIUM 40 MG TAB PO SCH (20:02)
[2019-01-29] MEDS: DIAZEPAM 2 MG TAB PO SCH (20:02)
[2019-01-29] MEDS: PATCH REMOVAL 1 EA PATCH TD SCH (21:04)
[2019-01-29] MEDS: METOPROLOL SUCCINATE XR 100 MG TAB PO SCH (22:46)
[2019-01-30] MEDS: GUAIFENESIN/DM 10 ML UDCUP PO PRN ×3 (03:11→21:25)
[2019-01-30 05:12] LABS: PLATELET COUNT 276 10^3/uL (150-400)
[2019-01-30] MEDS: ALBUTEROL 3 ML DEYVIAL IH SCH ×4 (05:24→20:28)
[2019-01-30] MEDS: ACETYLCYSTEINE 10% IH/PO 4 ML VIAL IH SCH ×4 (05:24→20:27)
[2019-01-30] MEDS: ESCITALOPRAM OXALATE 10 MG TAB PO SCH (08:32)
[2019-01-30] MEDS: PANTOPRAZOLE SODIUM 40 MG TAB PO SCH ×2 (08:32→17:58)
[2019-01-30] MEDS: amLODIPine BESYLATE 5 MG TAB PO SCH ×2 (08:32→21:26)
[2019-01-30] MEDS: CLOPIDOGREL BISULFATE 75 MG TAB PO SCH (08:33)
[2019-01-30] MEDS: predniSONE 20 MG TAB PO SCH (08:33)
[2019-01-30] MEDS: ENOXAPARIN 30 MG/0.3 ML SYR SC SCH (08:33)
[2019-01-30] MEDS: ACETAMINOPHEN 500 MG TAB PO SCH ×3 (08:33→21:25)
[2019-01-30] MEDS: INSULIN LISPRO 100 UNIT/ML SC SCH ×3 (08:33→17:58)
[2019-01-30] MEDS: LIDOCAINE 4%/MENTHOL 1% PATCH TD SCH (08:34)
[2019-01-30] MEDS: guaiFENesin/CODEINE PHOS 10 ML UDCUP PO PRN ×2 (09:38→17:58)
[2019-01-30] MEDS: RANOLAZINE 500 MG TAB.ER PO SCH ×2 (09:38→17:58)
--- NOTE | 2019-01-30 09:57 | HOSPPROG ---
Hospitalist Progress Note Assessment/Plan: #Acute on chronic hypoxemic resp failure:+ human rhino/enterovirus, asthma exacerbation,LLL PNA. (BL 3-4L ) -now on oral Pred, abx # LLL PNA: viral infection, but possible concurrent bacterial infection. Day 3 LQ (renally-dosed) # Human rhinovirus/enterovirus: anti-tussives # acute asthma exacerbation: plan as above # chronic diastolic heart failure: with slight elevation in trop # CAD: CP last night. Negative trop. Consider stress testing once acute illness resolved. -statin, BB # ADALI on CKD: resolved. At BL 1.2 #Aortic stenosis: moderate to severe on echo from this stay, followed by cardiology, no e/o acute decompensation currently # HTN: Metoprolol, Norvasc. Restart other BP meds slowly (Losartan, Lasix, Aldactone). Watch with borderline K #Hyperglycemia: in the setting of being on steroids, A1c 6.5. SSI # IP status, will require > 48 hours stay for eval/mgmt of above Subjective: chest pain last night, relieved with SL nitro Objective: Vital Signs Temp Pulse Resp BP Pulse Ox 36.8 C 72 20 143/70 H 92 01/30/19 08:00 01/30/19 08:00 01/30/19 08:00 01/30/19 08:32 01/30/19 08:00 Laboratory Results 01/30/19 04:15 01/30/19 04:15 01/29/19 01/30/19 01/31/19 05:59 05:59 05:59 Intake Total 1080 100 Output Total 600 100 Balance 480 0 - Time Spent With Patient Time Spent with Patient: greater than 35 minutes Time Spent with Patient: Greater than 35 minutes spent on this patients care, greater than 50% of time spent counseling, educating, and coordinating care regarding the above mentioned plan. - Physical Exam Constitutional: no apparent distress Eyes: PERRL Ears, Nose, Mouth, Throat: moist mucous membranes Cardiovascular: regular rate and rhythym, No edema Respiratory: reduced air movement, expiratory wheeze, rhonchi Gastrointestinal: normoactive bowel sounds Genitourinary: no bladder fullness Skin: warm Musculoskeletal: full muscle strength Neurologic: AAOx3, CN II-XII Intact Psychiatric: interacting appropriately ICD10 Worksheet Patient Problems: Problems Problem Status Onset Dyspnea Acute Hypoxia Acute Aortic stenosis Acute Chest pain Acute Hypertension Acute New onset left bundle branch block (LBBB) Acute Pneumonia Acute Severe sepsis Acute Unstable angina Acute chronic disease mgmt/transitional care Acute Primary localized osteoarthrosis, lower leg Chronic
[2019-01-30] MEDS: BUDESONIDE/FORMOTEROL 160/4.5 60 PUFFS/MDI IH SCH ×2 (10:33→20:28)
[2019-01-30] MEDS: LIDOCAINE 1% 300 MG/30 ML SDV MISC PRN ×3 (10:36→20:27)
[2019-01-30] MEDS: IPRATROPIUM 0.03% NASAL SPRAY EACHNARE SCH (13:30)
--- NOTE | 2019-01-30 16:31 | ASMTCMCOM ---
CM Note CM Note Notes: PT/OT recommending home care at d/c. Discussed with nurse at [facility] and she in turn discussed with pt's daughter in law. They would like [facility] - pt is in agreement. Referral sent via [employer]. D/C date not known yet. D/C plan: [facility] PT/OT Date Signed: 01/30/2019 04:31 PM Electronically Signed By:SUMEET Blevins
[2019-01-30] MEDS: DIAZEPAM 2 MG TAB PO SCH (21:26)
[2019-01-30] MEDS: ATORVASTATIN CALCIUM 40 MG TAB PO SCH (21:26)
[2019-01-30] MEDS: METOPROLOL SUCCINATE XR 100 MG TAB PO SCH (21:26)
[2019-01-30] MEDS: PATCH REMOVAL 1 EA PATCH TD SCH (21:35)
[2019-01-30] MEDS: BENZONATATE 100 MG CAP PO PRN (22:19)
[2019-01-31] MEDS: IPRATROPIUM 0.03% NASAL SPRAY EACHNARE SCH ×3 (03:53→19:43)
[2019-01-31] MEDS: ALBUTEROL 3 ML DEYVIAL IH SCH ×4 (05:12→21:07)
[2019-01-31] MEDS: ACETYLCYSTEINE 10% IH/PO 4 ML VIAL IH SCH ×4 (05:13→21:07)
[2019-01-31] MEDS: LIDOCAINE 1% 300 MG/30 ML SDV MISC PRN ×2 (05:14→21:08)
[2019-01-31] MEDS: GUAIFENESIN/DM 10 ML UDCUP PO PRN ×3 (05:32→19:42)
[2019-01-31] MEDS: INSULIN LISPRO 100 UNIT/ML SC SCH ×3 (07:46→18:11)
[2019-01-31] MEDS: LIDOCAINE 4%/MENTHOL 1% PATCH TD SCH (08:03)
[2019-01-31] MEDS: ENOXAPARIN 30 MG/0.3 ML SYR SC SCH (08:05)
[2019-01-31] MEDS: RANOLAZINE 500 MG TAB.ER PO SCH ×2 (08:08→18:02)
[2019-01-31] MEDS: CLOPIDOGREL BISULFATE 75 MG TAB PO SCH (08:08)
[2019-01-31] MEDS: amLODIPine BESYLATE 5 MG TAB PO SCH ×2 (08:08→19:43)
[2019-01-31] MEDS: predniSONE 20 MG TAB PO SCH (08:08)
[2019-01-31] MEDS: ACETAMINOPHEN 500 MG TAB PO SCH ×3 (08:08→21:56)
[2019-01-31] MEDS: PANTOPRAZOLE SODIUM 40 MG TAB PO SCH ×2 (08:09→18:02)
[2019-01-31] MEDS: ESCITALOPRAM OXALATE 10 MG TAB PO SCH (08:13)
[2019-01-31] MEDS: BUDESONIDE/FORMOTEROL 160/4.5 60 PUFFS/MDI IH SCH ×2 (10:35→21:07)
[2019-01-31] MEDS: LOSARTAN POTASSIUM 50 MG TAB PO SCH (13:30)
--- NOTE | 2019-01-31 15:15 | HOSPPROG ---
Hospitalist Progress Note Assessment/Plan: #Acute on chronic hypoxemic resp failure:+ human rhino/enterovirus, asthma exacerbation,LLL PNA. (BL 3-4L ) -now on oral Pred (day 4), abx (day 5/5) # LLL PNA: viral infection, but possible concurrent bacterial infection. Day 5 LQ (renally-dosed) # Human rhinovirus/enterovirus: anti-tussives # acute asthma exacerbation: plan as above # chronic diastolic heart failure: with slight elevation in trop # CAD: CP last night. Negative trop. Consider stress testing once acute illness resolved. -statin, BB # ADALI on CKD: resolved. At BL 1.2 #Aortic stenosis: moderate to severe on echo from this stay, followed by cardiology, no e/o acute decompensation currently # HTN: Metoprolol, Norvasc. Restarting other BP meds slowly (Losartan today continue holding Lasix, Aldactone). Watch with borderline K #Hyperglycemia: in the setting of being on steroids, A1c 6.5. SSI # IP status, will require > 48 hours stay for eval/mgmt of above Subjective: Patient reports no chest pain this morning Objective: Vital Signs Temp Pulse Resp BP Pulse Ox 36.7 C 66 20 138/57 H 94 01/31/19 07:06 01/31/19 12:00 01/31/19 12:00 01/31/19 13:30 01/31/19 12:00 Laboratory Results 01/30/19 04:15 01/31/19 04:25 01/30/19 01/31/19 02/01/19 05:59 05:59 05:59 Intake Total 100 650 Output Total 100 Balance 0 650 - Physical Exam Constitutional: chronically ill appearing Eyes: PERRL Ears, Nose, Mouth, Throat: moist mucous membranes Cardiovascular: regular rate and rhythym Respiratory: no respiratory distress, reduced air movement, expiratory wheeze Gastrointestinal: soft, non-tender abdomen Musculoskeletal: generalized weakness Neurologic: AAOx3 Psychiatric: interacting appropriately ICD10 Worksheet Patient Problems: Problems Problem Status Onset Dyspnea Acute Hypoxia Acute Aortic stenosis Acute Chest pain Acute Hypertension Acute New onset left bundle branch block (LBBB) Acute Pneumonia Acute Severe sepsis Acute Unstable angina Acute chronic disease mgmt/transitional care Acute Primary localized osteoarthrosis, lower leg Chronic
[2019-01-31] MEDS: METOPROLOL SUCCINATE XR 100 MG TAB PO SCH (19:42)
[2019-01-31] MEDS: DIAZEPAM 2 MG TAB PO SCH (19:42)
[2019-01-31] MEDS: ATORVASTATIN CALCIUM 40 MG TAB PO SCH (19:43)
[2019-01-31] MEDS: BENZONATATE 100 MG CAP PO PRN (21:57)
[2019-01-31] MEDS: PATCH REMOVAL 1 EA PATCH TD SCH (22:05)
[2019-02-01] MEDS: GUAIFENESIN/DM 10 ML UDCUP PO PRN ×2 (00:32→09:28)
[2019-02-01] MEDS: guaiFENesin/CODEINE PHOS 10 ML UDCUP PO PRN (03:08)
[2019-02-01] MEDS: BENZONATATE 100 MG CAP PO PRN (04:07)
[2019-02-01] MEDS: ALBUTEROL 3 ML DEYVIAL IH SCH ×3 (05:27→17:11)
[2019-02-01] MEDS: ACETYLCYSTEINE 10% IH/PO 4 ML VIAL IH SCH ×3 (05:32→17:11)
[2019-02-01] MEDS: predniSONE 20 MG TAB PO SCH (08:55)
[2019-02-01] MEDS: ACETAMINOPHEN 500 MG TAB PO SCH ×2 (08:55→17:31)
[2019-02-01] MEDS: ESCITALOPRAM OXALATE 10 MG TAB PO SCH (08:55)
[2019-02-01] MEDS: PANTOPRAZOLE SODIUM 40 MG TAB PO SCH (08:56)
[2019-02-01] MEDS: amLODIPine BESYLATE 5 MG TAB PO SCH (08:56)
[2019-02-01] MEDS: CLOPIDOGREL BISULFATE 75 MG TAB PO SCH (08:57)
[2019-02-01] MEDS: RANOLAZINE 500 MG TAB.ER PO SCH (08:57)
[2019-02-01] MEDS: LOSARTAN POTASSIUM 50 MG TAB PO SCH (08:57)
[2019-02-01] MEDS ORDERED: ENOXAPARIN 40 MG/0.4 ML SYR SC SCH (09:00)
[2019-02-01] MEDS: LIDOCAINE 4%/MENTHOL 1% PATCH TD SCH (09:04)
[2019-02-01] MEDS: IPRATROPIUM 0.03% NASAL SPRAY EACHNARE SCH (09:28)
[2019-02-01] MEDS: INSULIN LISPRO 100 UNIT/ML SC SCH ×2 (09:28→13:28)
[2019-02-01] MEDS: LIDOCAINE 1% 300 MG/30 ML SDV MISC PRN (10:04)
[2019-02-01] MEDS: BUDESONIDE/FORMOTEROL 160/4.5 60 PUFFS/MDI IH SCH (10:13)
--- NOTE | 2019-02-01 12:23 | PDIAF ---
- Diagnosis Diagnosis: Pneumonia Code Status: Do Not Resuscitate - Medication Management Discharge Medications: electronically signed and located in the Home Medication List. - Orders Services needed: Home Care, Registered Nurse, Physical Therapy, Occupational Therapy Home Care Face to Face: I certify that this patient was under my care and that I had the required [id number] encounter meeting the encounter requirements on the discharge day. My findings support the fact that the patient is homebound as defined in Home Care Face to Face Continued: CMS Chapter 7 Medicare Benefits Manual 30.1.1 , The condition of the patient is such that there exists a normal inability to leave home and consequently, leaving home would require a considerable and taxing effort. Isolation Type: Droplet Isolation - Follow Up Care Current Providers and Referrals: NONE *PRIMARY CARE P,. [Primary Care Provider] - As per Instructions
[2019-02-01 12:27] VITALS: BP 134/65
--- NOTE | 2019-02-01 12:32 | ASMTLACE ---
LACE Length of stay for Answers: 4-6 days current admission Acuity / Level of Answers: Yes Care: Did the patient have an inpatient admission? Comorbidities - select Answers: Congestive heart failure all that apply Coronary Artery Disease Opioid dependence / Chronic pain Previous myocardial infarction Other Notes: HTN; HLD # of Emergency department Answers: 1-2 visits in the last 6 months Score: 18 Date Signed: 02/01/2019 12:32 PM Electronically Signed By:SUMEET Blevins
--- NOTE | 2019-02-01 12:35 | ASMTDCNOTE ---
Case Management Discharge Discharge Order Complete? Answers: Yes Patient to Obtain Answers: Other Notes: [facility] Medications Transportation Arranged Answers: Family/Friends Faxed Final Orders Answers: Yes Agency/Facility Transfer Answers: Yes Report Printed & Faxed to Receiving Agency Family Notified Answers: Yes Discharge Comments Notes: Pt is discharging back to [facility] this afternoon with [facility]. Message left for Graciela DAILY at . Spoke with pt's son Jessee - he will be transporting his mother. [facility] notified. D/C order, meds, sent via [employer] to [facility] RN/PT/OT and to [facility]. Date Signed: 02/01/2019 12:35 PM Electronically Signed By:SUMEET Blevins
--- NOTE | 2019-02-01 12:38 | ASDISCHSUM ---
Discharge Information Plan Status:Assisted Living Medically Cleared to Leave:02/01/2019 Discharge Date:02/01/2019 CM D/C Disposition:Assisted Living ADT D/C Disposition: Projected Discharge Date:02/01/2019 11:00 AM Transportation at D/C:Family Discharge Delay Reason: Follow-Up Date:02/01/2019 11:00 AM Discharge Slot: Final Diagnosis: Placement Information Referral Type:Assisted Living Residence Referral ID:[id number] Provider Name:Sanjana Harrell [facility] [place] Address 1:[address] Phone Number: Address 2: Fax Number: [facility]:[place] Selection Factors: State:[place] Referral Type:*Home Health Care Services Referral ID:[id number] Provider Name:[facility] Address 1:[address] Phone Number: Address 2: Fax Number: [facility]:[place] Selection Factors: State:[place] Patient Contact Information Contact Name:SURJIT Relationship:Son Address:[phone] OFFICE PHONE City:[place] Alternate Phone: State/Zip Code:[place] [address] Email: Financial Information Financial Class:Medicare Primary Plan Desc:MEDICARE INPATIENT Primary Plan Number:[id number] Secondary Plan Desc:[facility] Secondary Plan Number:[id number] Assessment Information BC CM Progress Note 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 DC Plan: TBD Date Signed: 01/28/2019 05:16 PM Electronically Signed By:Alessandra Damon RN BC CM Progress Note CM Note CM Note Notes: Disregard previous note, wrong pt. This pt lives at [facility], has local son and dtr in law. Dc needs unclear, CM w/f DC Plan: TBD Date Signed: 01/28/2019 05:25 PM Electronically Signed By:Alessandra Damon RN LACE LACE Length of stay for Answers: 4-6 days current admission Acuity / Level of Answers: Yes Care: Did the patient have an inpatient admission? Comorbidities - select Answers: Congestive heart failure all that apply Coronary Artery Disease Opioid dependence / Chronic pain Previous myocardial infarction Other Notes: HTN; HLD # of Emergency department Answers: 1-2 visits in the last 6 months Score: 18 Date Signed: 02/01/2019 12:32 PM Electronically Signed By:SUMEET Blevins [facility] CM Progress Note CM Note CM Note Notes: PT/OT recommending home care at d/c. Discussed with nurse at [facility] and she in turn discussed with pt's daughter in law. They would like [facility] - pt is in agreement. Referral sent via [employer]. D/C date not known yet. D/C plan: [facility] PT/OT Date Signed: 01/30/2019 04:31 PM Electronically Signed By:SUMEET Blevins Case Management Discharge Plan Note Case Management Discharge Discharge Order Complete? Answers: Yes Patient to Obtain Answers: Other Notes: [facility] Medications Transportation Arranged Answers: Family/Friends Faxed Final Orders Answers: Yes Agency/Facility Transfer Answers: Yes Report Printed & Faxed to Receiving Agency Family Notified Answers: Yes Discharge Comments Notes: Pt is discharging back to [facility] this afternoon with [facility]. Message left for Graciela DAILY at . Spoke with pt's son Jessee - he will be transporting his mother. [facility] notified. D/C order, meds, sent via [employer] to [facility] RN/PT/OT and to [facility]. Date Signed: 02/01/2019 12:35 PM Electronically Signed By:SUMEET Blevins Intervention Information Intervention Type:*IM-Signed Date of Service:02/01/2019 12:32 PM Patient Type:Inpatient Staff Member:Merced Bellamy Hours: Discipline: Severity: Comment:
--- NOTE | 2019-02-01 13:46 | PDDCSUM ---
Discharge Summary Discharge Summary: Date of Admission: 01/27/2019 Date of Discharge: 02/01/2019 Procedures: TTE Followup: PCP, Cardiology Hospital Course Problem List: #Acute on chronic hypoxemic resp failure:+ human rhino/enterovirus, asthma exacerbation, LLL PNA. (BL 3-4L ) -Will discharge to complete 5 day course of Prednisone (day 4), and completed 5 day course of Levaquin # LLL PNA: viral infection, but possible concurrent bacterial infection. S/p 5 days of LQ as above # Human rhinovirus/enterovirus: anti-tussives PRN # acute asthma exacerbation: plan as above # chronic diastolic heart failure: Restarting home Lasix, Spironolactone upon discharge # CAD: CP during admission. Negative trop. Consider stress testing as outpatient -Continue home statin, BB # ADALI on CKD: resolved. At BL 1.2 #Aortic stenosis: moderate to severe on echo from this stay, followed by cardiology, no e/o acute decompensation currently # HTN: Metoprolol, Norvasc, restarted Losartan #Hyperglycemia: in the setting of being on steroids, A1c 6.5. SSI Time spent on discharge was >35 minutes with >50% of time spent on patient education and counseling.
== END 2019-02-01 17:15 | disposition home health service (06) | DRG 193 ==
LOC: EDUNIT# → F2N 22:30 → F1N 01-29 17:41
PROVIDERS: ADMIT Internal Medicine; ATTEND Internal Medicine
DX: J12.89 Other viral pneumonia (principal); J96.21 Acute and chronic respiratory failure with hypoxia; J45.901 Unspecified asthma with (acute) exacerbation; I13.0 Hypertensive heart and chronic kidney disease with heart failure and stage 1 through stage 4 chronic kidney disease, or unspecified chronic kidney disease; I50.32 Chronic diastolic (congestive) heart failure; N17.9 Acute kidney failure, unspecified; N18.9 Chronic kidney disease, unspecified; B97.10 Unspecified enterovirus as the cause of diseases classified elsewhere; I25.10 Atherosclerotic heart disease of native coronary artery without angina pectoris; J15.9 Unspecified bacterial pneumonia; R73.9 Hyperglycemia, unspecified; K21.9 Gastro-esophageal reflux disease without esophagitis; G47.33 Obstructive sleep apnea (adult) (pediatric); I35.0 Nonrheumatic aortic (valve) stenosis; Z87.891 Personal history of nicotine dependence
CPT/HCPCS: 82435-PO; 82565-PO; 82947-PO; 84132-PO; 84295-PO; 84484-ER; 84520-PO; 85014-ER; 96365; 96366; 97116-GP; 97162-GP; 97165-GO; 97535-GO; J1650; J1815; J1956; J2930; J7512; J7613